=== PATIENT | female | born 1940 | race Caucasian/White ===

== ENCOUNTER 2017-05-23 11:46 | Inpatient (IN) | payer MEDICARE ==
[~2017-05-23] VITALS: Ht 157.5 cm; Wt 54.4 kg
--- NOTE | 2017-05-23 11:50 | NUR ---
BIB PRIVATE AMBULANCE FROM [facility] DT ABDOMINAL DISTENTION AND FEVER SINCE YESTERDAY. PATIENT IS AAO4. APPEARS IN NO APPARENT DISTRESS,. RESPIRATION EVEN AND UNLABORED. SKIN IS WARM TO TOUCH AND NON DIAPHORETIC. SATING WELL ON ROOM AIR
[2017-05-23] MEDS ORDERED: IV NS 0.9% 1,000 ML BAG IV ONE (12:00)
[2017-05-23 12:17] LABS: BASOPHILS # (AUTO) 0.3 /CMM (0.0-0.2); BASOPHILS % (AUTO) 1.3 % (0.0-2.0); HEMATOCRIT 38 % (33-45); HEMOGLOBIN 12.7 g/dL (11.5-14.8); LYMPHOCYTES # (AUTO) 0.9 /CMM (0.8-4.8); LYMPHOCYTES % (AUTO) 3.3 % (20.0-44.0); MEAN CORPUSCULAR HEMOGLOBIN 29 PG (26.0-33.0); MEAN CORPUSCULAR HGB CONC 34 g/dl (31.0-36.0); MEAN CORPUSCULAR VOLUME 85 fL (82-100); MONOCYTES % (AUTO) 7.5 % (2.0-12.0); NEUTROPHILS # (AUTO) 23.3 /CMM (1.8-8.9); NEUTROPHILS % (AUTO) 87.9 % (43.0-81.0); PLATELET COUNT (AUTO) 367 /CMM (150-450); RDW COEFFICIENT OF VARIATION 13.5 (11.5-15.0); RED BLOOD CELL COUNT(AUTO) 4.44 MIL/uL (4.0-5.2); WHITE BLOOD COUNT (AUTO) 26.5 K/uL (4.3-11.0)
[2017-05-23 12:19] LABS: APPEARANCE,URINE Slightly Cloudy (CLEAR); BILIRUBIN,URINE MODERATE (NEGATIVE); BLOOD, URINE Negative Ery/uL (NEGATIVE); COLOR,URINE Dark Yellow (YELLOW); KETONES,URINE Trace (NEGATIVE); LEUKOCYTE ESTERASE ,URINE Negative (NEGATIVE); NITRITE, URINE Negative (NEGATIVE); PROTEIN,URINE Trace mg/dl (NEGATIVE); UGLUCOSE Negative (NEGATIVE)
--- NOTE | 2017-05-23 12:20 | NUR ---
PATIENT WAS TAKEN TO CT
[2017-05-23 12:26] LABS: BACTERIA,URINE None seen /HPF (None Seen); SQUAMOUS EPITHELIAL CELL,UR Few /HPF (None Seen); URINE AMORPHOUS URATE Few /HPF (None Seen); WBC,URINE 0-3 /HPF (0-3)
[2017-05-23 12:27] LABS: CALCIUM, SERUM 9.5 mg/dL (8.5-10.1); CARBON DIOXIDE 25 mmol/L (21-32); CHLORIDE 107 mmol/L (98-107); CREATININE 1.9 mg/dL (0.6-1.3); GLUCOSE 170 mg/dL (74-106); POTASSIUM 4.1 mmol/L (3.5-5.1); SODIUM SERUM 143 mmol/L (136-145); UREA NITROGEN, BLOOD 55 mg/dL (7-18)
[2017-05-23 12:31] LABS: INR 0.98 (0.87-1.13); PROTHROMBIN TIME 10.2 SECS (9.5-12.7)
[2017-05-23 12:34] LABS: ALANINE AMINOTRANSFERASE 32 U/L (12-78); ALBUMIN 2.8 g/dL (3.4-5.0); ALKALINE PHOSPHATASE 80 U/L (46-116); ASPARTATE AMINOTRANSFERASE 19 U/L (15-37); BILIRUBIN,DIRECT 0.2 mg/dL (0.0-0.2); BILIRUBIN,TOTAL 0.6 mg/dL (0.2-1.0); TOTAL PROTEIN, SERUM 6.9 g/dL (6.4-8.2)
[2017-05-23 12:35] LABS: TROPONIN I < 0.017 ng/mL (0.00-0.056)
[2017-05-23] MEDS ORDERED: ATOR20TA PO (12:51)
[2017-05-23] MEDS ORDERED: DOCU-25 PO (12:51)
[2017-05-23] MEDS ORDERED: NA P133E RC (12:51)
[2017-05-23] MEDS ORDERED: ACET-868 PO (12:51)
[2017-05-23] MEDS ORDERED: FOLI0.8T PO (12:51)
[2017-05-23] MEDS ORDERED: RISP0.5T20 PO (12:51)
[2017-05-23] MEDS ORDERED: AMLO10TA2 PO (12:51)
[2017-05-23] MEDS ORDERED: BISA10SU8 RC (12:51)
[2017-05-23] MEDS ORDERED: MIRT15TA PO (12:51)
[2017-05-23] MEDS ORDERED: TEMA7.5C PO (12:51)
[2017-05-23] MEDS ORDERED: MAG30ORA PO (12:51)
[2017-05-23] MEDS ORDERED: MAGN400O6 PO (12:51)
[2017-05-23] MEDS ORDERED: IV NS 0.9% 500 ML IV ONE (13:00)
[2017-05-23] MEDS ORDERED: FLAGYL/NS RTU 500 MG/100 ML PIGGYBACK IV ONE (13:00)
[2017-05-23] MEDS ORDERED: LEVOFLOXACIN 750 MG /D5W 150ML 750 MG in PREMIX 1 EA IV SCH (13:00)
[2017-05-23] MEDS ORDERED: IV NS 0.9% 250 ML IV ONE (13:00)
[2017-05-23] MEDS ORDERED: LEVOFLOXACIN 750 MG /D5W 150ML 150 ML IV ONE (13:05)
[2017-05-23] MEDS ORDERED: METRONIDAZOLE 500MG/ NS 100ML 100 ML IV ONE (13:05)
--- NOTE | 2017-05-23 13:21 | NUR ---
CALLED DR RODRIGUEZ FOR PANEL
--- NOTE | 2017-05-23 13:44 | NUR ---
TELE 323-2
--- NOTE | 2017-05-23 14:02 | NUR ---
REPORT GIVEN TO MIR FRY FOR NAY
[2017-05-23 14:30] VITALS: BP 111/55
--- NOTE | 2017-05-23 15:00 | NUR ---
SOFTWARE REVERSE ENGINEER NOTE RECEIVED PT. PT IS STABLE AND IN BED. PT IS CONFUSED, BUT VERBAL. PT IS ATTEMPTING TO PULL OUT IV LINES AND CEJA CATH. NO S/S OF RESPIRATORY DISTRESS OR SOB. SLIGHT FEVER NOTED. SAFETY MEASURES IN PLACE, CALL LIGHT WITHIN REACH. WILL ENDORSE TO TARIFF COUNSEL FOR NAY.
[2017-05-23] MEDS ORDERED: IV NS 0.9% 1,000 ML IV PRN (15:28)
[2017-05-23] MEDS ORDERED: ZOLPIDEM TARTRATE 5 MG TABLET PO PRN (15:30)
[2017-05-23] MEDS ORDERED: MAGNESIUM HYDROXIDE 30 ML UDC PO PRN ×2 (15:30)
[2017-05-23] MEDS ORDERED: BISACODYL SUPP (10 MG) 10 MG/SUPP.RECT SUPP.RECT RC PRN (15:30)
[2017-05-23] MEDS ORDERED: NA PHOS,M-B/NA PHOS,DI-BA 1 EA ENEMA RC PRN (15:30)
[2017-05-23] MEDS ORDERED: Z GUARD REMEDY 2 OZ OINT TP PRN (15:30)
[2017-05-23] MEDS ORDERED: MAG HYDROX/AL HYDROX/SIMETH 30 ML UDC PO PRN ×2 (15:30)
[2017-05-23] MEDS ORDERED: ACETAMINOPHEN 325 MG TABLET PO PRN (15:30)
[2017-05-23] MEDS ORDERED: HYDROCODONE/APAP 5/325MG 1 EACH TABLET PO PRN (15:30)
[2017-05-23] MEDS ORDERED: ONDANSETRON HCL/PF 4 MG/2 ML VIAL IVP PRN (15:30)
[2017-05-23 16:00] VITALS: BP 130/90
[2017-05-23] MEDS: risperiDONE 0.25 MG TABLET PO SCH (16:00)
[2017-05-23 16:40] VITALS: BP 111/55
[2017-05-23] MEDS ORDERED: DOCUSATE SODIUM 100 MG CAPSULE PO SCH (17:00)
[2017-05-23] MEDS: METRONIDAZOLE 500MG/ NS 100ML 500 MG in PREMIX 1 EA IV SCH ×2 (17:50→23:45)
--- NOTE | 2017-05-23 18:52 | NUR ---
RN CLOSING NOTE PT IN BED RESTING. NO S/S OF DISTRESS OR SOB. PT DOES NOT APPEAR TO BE IN PAIN. SOFT WRIST RESTRAINT ORDER OBTAINED FOR PT REMOVING LINES. SAFETY MEASURES IN PLACE. CALL LIGHT WITHIN REACH. WILL ENDORSE TO MANAGER MEDICAL DEVICE FOR NAY.
[2017-05-23 20:00] VITALS: BP 135/56
--- NOTE | 2017-05-23 20:00 | NUR ---
RN NOTES PATIENT IS ALERT AND ORIENTED X1, RESTLESS, CONFUSED, SCREAMS WHEN TOUCH, PULLING OUT IV AND CEJA CATHETER. NO SOB, TOLERATING ROOM AIR, SPO2 93%, ABDOMEN SOFT AND NON-TENDER, ACTIVE BOWEL SOUNDS, LEFT HAND PERIPHERAL LINE IS PATENT AND INFUSING WELL. PROTECTED WITH LALA SLEEVE. PATIENT HAS BILATERAL SOFT WRIST RESTRAINTS FOR PULLING OUT IV. CEJA CATHETER IS DRAINING WELL WITH YELLOW URINE. GIVEN SPONGE BATH PATIENT IS UNKEMPT AND DISHEVELLED. NEEDS ATTENDED, CALL LIGHT WITHIN REACH.
--- NOTE | 2017-05-23 20:30 | NUR ---
RN NOTES PATIENT TRANSFERRED TO ROOM 326-1 NEAR THE NURSES STATION FOR SAFETY. BED ALARM TURNED ON.
[2017-05-23] MEDS: MIRTAZAPINE 15 MG TABLET PO SCH (21:53)
[2017-05-23] MEDS: TEMAZEPAM 7.5 MG CAPSULE PO PRN (23:45)
[2017-05-24] VITALS: BP 135/72
[2017-05-24] MEDS ORDERED: LORAZEPAM INJ 2 MG/ML VIAL ONE (02:11)
[2017-05-24] MEDS ORDERED: SIMETHICONE 80 MG TAB.CHEW ONE (02:12)
--- NOTE | 2017-05-24 02:16 | NUR ---
RN NOTES PATIENT IS SPITTING OUT MEDICATION, GIVEN TYLENOL 650 MG PO FOR TEMP OF 99F. PATIENT SPIT MEDICATION. COMBATIVE, VERBALLY ABUSIVE AND NOT COOPERATIVE WITH NURSING CARE. NOTIFIED DR. MANZO, NEW ORDER OF ATIVAN 0.5 MG IVP Q6HRS. ORDER NOTED AND CARRIED OUT.
[2017-05-24] MEDS: LORAZEPAM INJ 2 MG/ML VIAL IV PRN (02:23)
[2017-05-24 04:00] VITALS: BP 111/59
[2017-05-24] MEDS: METRONIDAZOLE 500MG/ NS 100ML 500 MG in PREMIX 1 EA IV SCH ×4 (05:10→23:19)
--- NOTE | 2017-05-24 06:50 | NUR ---
RN NOTES PATIENT IN BED, ALERT AND AWAKE, CONFUSED, RESTLESS, NO SOB, SPO2 AT ROOM AIR 96%, COMPLAINED OF PAIN OF 6/10 TO BUTTOCKS, GIVEN NORCO 5/325 1 TAB PO PRN. BILATERAL WRIST RESTRAINED ACTIVE DUE PATIENT PULLING OUT IV LINE AND CEJA CATHETER. LEFT HAND PERIPHERAL LINE IS PATENT AND INFUSING WELL, CEJA CATHETER DRAINING OF TEA COLORED URINE, HAD BM OF SOFT STOOL X3, SAMPLE COLLECTED FOR OB. SAFETY PRECAUTIONS IN PLACE, PATIENT BEING MONITORED CLOSELY SECONDARY TO FALL RISK AND BEHAVIOR. NEEDS ATTENDED, CALL LIGHT WITHIN REACH.
--- NOTE | 2017-05-24 07:10 | NUR ---
NURSE INTERN NOTES PATIENT CONFUSED, NO S/SX OF ACUTE DISTRESS AT THIS TIME, ON IVF FOR HYDRATION, IV PATENT AND FLUSHES WELL, BILATERAL SOFT WRIST RESTRAINTS IN PLACED, NO S/SX OF SKIN BREAKDOWN NOTED, CIRCULATION CHECKED, ALL NEEDS ATTENDED AND MET, CALL LIGHT WITHIN REACH, WILL CONTINUE TO MONITOR.
[2017-05-24 08:00] VITALS: BP 127/62
[2017-05-24 08:07] LABS: HEMATOCRIT 32 % (33-45); HEMOGLOBIN 10.6 g/dL (11.5-14.8); LYMPHOCYTES # (AUTO) 1.2 /CMM (0.8-4.8); LYMPHOCYTES % (AUTO) 6.4 % (20.0-44.0); MEAN CORPUSCULAR HEMOGLOBIN 29 PG (26.0-33.0); MEAN CORPUSCULAR HGB CONC 34 g/dl (31.0-36.0); MEAN CORPUSCULAR VOLUME 86 fL (82-100); MONOCYTES # (AUTO) 1.8 /CMM (0.1-1.30); MONOCYTES % (AUTO) 9.7 % (2.0-12.0); NEUTROPHILS # (AUTO) 15.9 /CMM (1.8-8.9); NEUTROPHILS % (AUTO) 83.9 % (43.0-81.0); PLATELET COUNT (AUTO) 265 /CMM (150-450); RDW COEFFICIENT OF VARIATION 14.9 (11.5-15.0); RED BLOOD CELL COUNT(AUTO) 3.68 MIL/uL (4.0-5.2); WHITE BLOOD COUNT (AUTO) 18.9 K/uL (4.3-11.0)
[2017-05-24 08:25] LABS: CALCIUM, SERUM 8.7 mg/dL (8.5-10.1); CARBON DIOXIDE 24 mmol/L (21-32); CHLORIDE 114 mmol/L (98-107); CREATININE 1.6 mg/dL (0.6-1.3); GLUCOSE 116 mg/dL (74-106); MAGNESIUM 2.8 mg/dL (1.8-2.4); PHOSPHORUS 3.5 mg/dL (2.5-4.9); POTASSIUM 3.2 mmol/L (3.5-5.1); SODIUM SERUM 148 mmol/L (136-145); UREA NITROGEN, BLOOD 53 mg/dL (7-18)
--- NOTE | 2017-05-24 08:49 | NUR ---
TEST KITCHEN HOME ECONOMIST NOTES SEEN BY DR. PERSON AND RECEIVED NEW ORDERS FOR NGT PLACEMENT, GOLYTELY TO START NOW, 2 FLEET ENEMAS NOW, MAG CITRATE IN THE AFTERNOON IF BOWEL IS NOT CLEAR, NPO AFTER MIDNIGHT AND CONSENT FOR COLONOSCOPY FOR TOMORROW. ORDER NOTED AND CARRIED OUT.
[2017-05-24 08:58] LABS: BAND % (MANUAL) 10 % (0.0-5.0); LYMPHOCYTES % (MANUAL) 6 % (16-48); MONOCYTES % (MANUAL) 8 % (0-11.0); NEUTROPHILS % (MANUAL) 76 (42-76)
[2017-05-24] MEDS ORDERED: NA PHOS,M-B/NA PHOS,DI-BA 1 EA ENEMA RC ONE (09:00)
[2017-05-24] MEDS ORDERED: PEG 3350/NA SULF,BICARB,CL/KCL 4,000 ML BOTTLE PO ONE (09:15)
--- NOTE | 2017-05-24 09:21 | NUR ---
DECONTAMINATION TECHNICIAN NOTES SPOKE WITH PATIENT'S DAUGHTER ROMAIN MARTINEZ AND GAVE CONSENT FOR COLONOSCOPY AND SEDATION FOR TOMORROW, HOWEVER, DAUGHTER REFUSED BLOOD TRANSFUSION, PER DAUGHTER IT WAS THE PATIENTS WISH.
[2017-05-24] MEDS: IV 1/2NS 1000 ML 1,000 ML IV SCH (10:46)
[2017-05-24] MEDS: ATORVASTATIN 10 MG TABLET PO SCH (10:48)
[2017-05-24] MEDS: FOLIC ACID 1 MG TABLET PO SCH (10:48)
[2017-05-24] MEDS: AMLODIPINE BESYLATE 10 MG TABLET PO SCH (10:49)
[2017-05-24] MEDS: risperiDONE 0.25 MG TABLET PO SCH (10:49)
[2017-05-24] MEDS: DOCUSATE SODIUM LIQ 100 MG/10 ML UDC NG SCH ×2 (11:30→18:08)
--- NOTE | 2017-05-24 12:00 | NUR ---
HERD TESTER NOTES NGT INSERTED PATIENT TOLERATED PROCEDURE WELL, PLACEMENT VERIFIED BY 2 NURSES, CXR DONE AND CONFIRMED PLACEMENT. ENEMA GIVEN AND PATIENT HAD LARGE BROWN BM.
[2017-05-24] MEDS ORDERED: POTASSIUM CHLORIDE 10 MEQ TABLET.SA PO ONE (12:30)
[2017-05-24] MEDS ORDERED: LEVOFLOXACIN 500 MG /D5W 100ML 500 MG in PREMIX 1 EA IV ONE (13:00)
--- NOTE | 2017-05-24 13:12 | NUR ---
RN MS NOTED DR. CARREON D/Neto TELE MONITOR. SHAY DUE THIS AM, CALLED PHARMACY TWICE, PER PHARMACY WILL SEND SOON.
[2017-05-24] MEDS ORDERED: POTASSIUM CHLORIDE 20 MEQ POWDER PACKET NG ONE (14:00)
[2017-05-24 16:00] VITALS: BP 138/63
[2017-05-24] MEDS ORDERED: MAGNESIUM CITRATE 296 ML BOTTLE PO ONE (16:00)
--- NOTE | 2017-05-24 16:27 | NUR ---
RN MS NOTES PATIENT WAS ABLE TO PULL OUT NGT WHEN RESTRAINT RELEASED FOR SKIN CHECK, STAMP MACHINE SERVICER AT BEDSIDE, ATTENDING TO ANOTHER PATIENT WHEN HE NOTICED NGT IS DISLODGED. NGT REINSERTED, DR. RODRIGUEZ AWARE, AND ORDERED STAT CHEST X-RAY FOR PLACEMENT VERIFICATION. ORDER NOTED AND CARRIED OUT.
--- NOTE | 2017-05-24 18:33 | NUR ---
RN MS NOTES PATIENT ALERT AND ORIENTED X1, CONFUSED AND COMBATIVE, ALL DUE MEDS GIVEN VIA NGT, PLACEMENT VERIFIED. NPO AT THIS TIME, HOB ELEVATED AT ALL TIMES, PATIENT HAD MULTIPLE BMS THIS SHIFT, LAST BM IS DARK BROWN AND LIQUID. PATIENT TOLERATING PREPARATION FOR COLONOSCOPY. ALL NEEDS ATTENDED AND MET, SKIN CARE PROVIDED, F/C PATENT AND DRAINING STEFANI COLORED URINE. RESTRAINT IN PLACED, WILL ENDORSE TO SAP INTEGRATION ARCHITECT FOR NAY.
[2017-05-24 20:00] VITALS: BP 132/83
--- NOTE | 2017-05-24 20:00 | NUR ---
RN NOTES PATIENT IN BED, CONFUSED, RESTLESS, NON-VERBAL, LETTING OUT SCREAMS SPORADICALLY, NO SOB, TOLERATING ROOM AIR, SPO2 95%. NG TUBE IN PLACE, CHECKED PLACEMENT BY AUSCULTATION. ABDOMEN DISTENDED, LEFT HAND PERIPHERAL IV IS PATENT AND INFUSING WELL, PROTECTED WITH LALA SLEEVES, PATIENT ON RESTRAINTS FOR SAFETY DUE TO PULLING OUT IV LINE, NGT AND CEJA CATHETER. SHOULD RECEIVED GOLYTELY TILL MIDNIGHT, NPO AFTER MIDNIGHT FOR COLONOSCOPY IN AM. WILL REQUIRE CONSTANT MONITORING FOR SAFETY. KEPT HOB ELEVATED, CALL LIGHT WITHIN REACH.
[2017-05-24] MEDS: MIRTAZAPINE 15 MG TABLET PO SCH (21:19)
[2017-05-24] MEDS: TEMAZEPAM 7.5 MG CAPSULE PO PRN (21:19)
--- NOTE | 2017-05-24 21:30 | NUR ---
RN NOTES PATIENT CURRENTLY ON GOLYTELY VIA NGT TILL MIDNIGHT, BM IS DARK AND LIQUID. PATIENT IS RESTLESS, PULLING OUT IV LINE, NGT AND CEJA CATHETER. BEING MONITORED CLOSELY FOR SAFETY.
[2017-05-25] MEDS: LORAZEPAM INJ 2 MG/ML VIAL IV PRN (01:14)
[2017-05-25] MEDS: METRONIDAZOLE 500MG/ NS 100ML 500 MG in PREMIX 1 EA IV SCH ×3 (05:10→17:25)
[2017-05-25] MEDS: IV 1/2NS 1000 ML 1,000 ML IV SCH (05:10)
--- NOTE | 2017-05-25 06:25 | NUR ---
RN NOTES NOTIFIED DR. CHAVEZ NOTIFIED, NEW ORDER OF SAMIRA ENSWATHI PER X1 NOW. ORDER NOTED AND CARRIED OUT. Addendum: 05/25/17 at 0656 by CORRY FERRIS RN NOTIFIED DR. CHAVEZ OF DARK, LIQUID STOOL
[2017-05-25] MEDS ORDERED: NA PHOS,M-B/NA PHOS,DI-BA 1 EA ENEMA RC ONE (06:30)
--- NOTE | 2017-05-25 06:54 | NUR ---
RN NOTES PATIENT IS RESTING, AROUSEABLE BY VOICE AND TOUCH, WITH EPISODES OF RESTLESSNESS, COMBATIVE AT TIMES, NO SOB, TOLERATING ROOM AIR, SPO2 95%, UNABLE TO VERBALIZE NEEDS, COMPLETED GOLYTELY AT MIDNIGHT, BEEN MOVING BOWEL X10, STOOL IS LIQUID AND DARK, GIVEN FLEET ENEMA, SOLID STOOL CAME OUT. PATIENT IS STILL ACTIVELY MOVING BOWELS. PROVIDED GOOD PERINEAL CARE AND BED BATH. RESTRAINTS IS STILL ACTIVE DUE TO PATIENT STILL CONFUSED AND PULLING OUT IV LINE AND CEJA CATHETER. ALL NEEDS ATTENDED, CALL LIGHT WITHIN REACH.
[2017-05-25 07:51] LABS: EOSINOPHILS % (AUTO) 0.2 % (0.0-6.0); HEMATOCRIT 32 % (33-45); HEMOGLOBIN 10.7 g/dL (11.5-14.8); LYMPHOCYTES # (AUTO) 1.1 /CMM (0.8-4.8); LYMPHOCYTES % (AUTO) 5.7 % (20.0-44.0); MEAN CORPUSCULAR HEMOGLOBIN 29 PG (26.0-33.0); MEAN CORPUSCULAR HGB CONC 33 g/dl (31.0-36.0); MEAN CORPUSCULAR VOLUME 86 fL (82-100); MONOCYTES % (AUTO) 5.2 % (2.0-12.0); NEUTROPHILS # (AUTO) 17.4 /CMM (1.8-8.9); NEUTROPHILS % (AUTO) 88.9 % (43.0-81.0); PLATELET COUNT (AUTO) 277 /CMM (150-450); RDW COEFFICIENT OF VARIATION 14.7 (11.5-15.0); RED BLOOD CELL COUNT(AUTO) 3.71 MIL/uL (4.0-5.2); WHITE BLOOD COUNT (AUTO) 19.6 K/uL (4.3-11.0)
[2017-05-25 08:00] VITALS: BP 152/78
--- NOTE | 2017-05-25 08:08 | NUR ---
RN opening notes: -patient sleeping soundly, with clear yeloow urine draining from payton catheter, with wrist restraints applied , sitter at bedisde, NGT in clamped this time, ready for OR for colonoscopy.
[2017-05-25 08:19] LABS: CALCIUM, SERUM 8.6 mg/dL (8.5-10.1); CARBON DIOXIDE 20 mmol/L (21-32); CHLORIDE 120 mmol/L (98-107); CREATININE 1.4 mg/dL (0.6-1.3); GLUCOSE 85 mg/dL (74-106); MAGNESIUM 2.8 mg/dL (1.8-2.4); PHOSPHORUS 3.3 mg/dL (2.5-4.9); POTASSIUM 3.1 mmol/L (3.5-5.1); SODIUM SERUM 155 mmol/L (136-145); UREA NITROGEN, BLOOD 39 mg/dL (7-18)
--- NOTE | 2017-05-25 08:25 | NUR ---
- patient was transported to OR , WITH WRIST RESTRAINTS, RPOETED TO OR OF A RECENT LIQUID BLACK STOOL, AWAKE BUT SLEEPING.
[2017-05-25] MEDS: ATORVASTATIN 10 MG TABLET PO SCH (09:00)
[2017-05-25] MEDS: DOCUSATE SODIUM LIQ 100 MG/10 ML UDC NG SCH ×2 (09:00→17:00)
[2017-05-25] MEDS: FOLIC ACID 1 MG TABLET PO SCH (09:00)
--- NOTE | 2017-05-25 09:50 | NUR ---
- back from OR VIA GURNEY, AWAKE, BUT EYES CLOSED WITH WRIST RESTRAINTS, REORT RECEIVED FROM DIRECTOR OF PRODUCT MARKETING THAT PATIENT HAS FULL OF STOOLS & TO REMOVE NGT AFTER MAG CITRATE.
[2017-05-25 10:44] LABS: BAND % (MANUAL) 7 % (0.0-5.0); LYMPHOCYTES % (MANUAL) 3 % (16-48); MONOCYTES % (MANUAL) 3 % (0-11.0); NEUTROPHILS % (MANUAL) 87 (42-76)
[2017-05-25] MEDS ORDERED: POTASSIUM CHLORIDE 20 MEQ TAB.PRT.SR PO SCH (11:00)
[2017-05-25] MEDS ORDERED: MAGNESIUM CITRATE 296 ML BOTTLE NG ONE (11:30)
[2017-05-25] MEDS: risperiDONE 0.25 MG TABLET PO SCH (11:42)
[2017-05-25] MEDS: AMLODIPINE BESYLATE 10 MG TABLET PO SCH (11:42)
[2017-05-25] MEDS: IV D5W 1,000 ML IV PRN (12:05)
[2017-05-25] MEDS: DOCUSATE SODIUM 100 MG CAPSULE PO SCH ×2 (13:00→17:24)
[2017-05-25] MEDS ORDERED: LEVOFLOXACIN 250 MG /D5W 50 ML 250 MG in PREMIX 1 EA IV SCH (13:00)
--- NOTE | 2017-05-25 13:09 | NUR ---
- NGT still in , Mag Citrate has BEEN GIVEN 1 HOUR AGO & still is being observed for stool reaction , & patient still being combative once restraints are released.
[2017-05-25] MEDS: Potassium Chloride 10 MEQ in IV D5W 50 ML IV SCH ×4 (13:42→16:59)
--- NOTE | 2017-05-25 14:00 | NUR ---
- NGT REMOVED, liquid stool came out, incontinent care done, wrist restraints removed , but patient was very restless, sitter had to control patient from getting out of bed. , KCL IV infusing via pump.
[2017-05-25 16:00] VITALS: BP 139/78
--- NOTE | 2017-05-25 18:00 | NUR ---
PATIENT WAS ABLE TO TOLERATE SMALL AMOUNTS OF WATER AFTER THE COLACE WITH APPLESAUCE. nO COUGHING NOTED.
--- NOTE | 2017-05-25 18:31 | NUR ---
- jello & cranberry juice were offered but patient spit out the jello, & refused the cranberry juice. Continuing IV ORDERED.
--- NOTE | 2017-05-25 18:33 | NUR ---
RN CLOSING NOTES: - PATIENT IS LYING ON BED IN SIDE-LYING POSITION , NON-LABORED RESPIRATION , WITH INFUSING FLAGYL & IV ORDERED. CALL LIGHT AT BEDSIDE, STILL ON 1:1 SITTER, SINCE PATIENT STILL SHOWS COMBATIVENESS , THO' NO WRIST RESTRAINTS APPLIED.
[2017-05-25 20:00] VITALS: BP 105/47
[2017-05-25] MEDS: MIRTAZAPINE 15 MG TABLET PO SCH (22:00)
[2017-05-25] MEDS ORDERED: POLYETHYLENE GLYCOL 3350 17 GM POWD.PACK PO SCH (22:00)
[2017-05-26] MEDS: METRONIDAZOLE 500MG/ NS 100ML 500 MG in PREMIX 1 EA IV SCH ×3 (00:22→12:44)
--- NOTE | 2017-05-26 06:40 | NUR ---
MS RN NOTES PT SLEEPING. EASILY AROUSABLE. NOT IN ANY DISTRESS. NO SOB NOTED. NO S/SX OF ANY PAIN OR DISCOMFORT AT THIS TIME. WITH IVF INFUSING WELL. AM CARE DONE. MONITORED ACCORDINGLY WITH SITTER AT BEDSIDE. CALL LIGHT WITHIN REACH. BED IN LOWEST POSITION. SR UP X 3 FOR SAFETY WITH BED ALARM ON. WILL ENDORSE TO NEXT SHIFT.
[2017-05-26 07:00] VITALS: BP 119/49
[2017-05-26 07:31] LABS: CALCIUM, SERUM 8.9 mg/dL (8.5-10.1); CARBON DIOXIDE 24 mmol/L (21-32); CHLORIDE 121 mmol/L (98-107); CREATININE 1.5 mg/dL (0.6-1.3); GLUCOSE 112 mg/dL (74-106); POTASSIUM 3.2 mmol/L (3.5-5.1); SODIUM SERUM 154 mmol/L (136-145); UREA NITROGEN, BLOOD 30 mg/dL (7-18)
--- NOTE | 2017-05-26 08:10 | NUR ---
RN NOTES RECEIVED PT. PT IS STABLE AND SLEEPING IN BED. NO S/S OF RESPIRATORY DISTRESS OR SOB. PT IS A/OX1 AND CONFUSED PER WELL LOGGING OPERATOR MUD ANALYSIS REPORT. FC IN PLACE AND PATENT. IV ACCESS LOCATED ON LEFT HAND 20G RUNNING D5W AT 75 ML/HR. SAFETY MEASURES IN PLACE, CALL LIGHT WITHIN REACH, WILL CONTINUE TO MONITOR.
[2017-05-26 09:00] VITALS: BP 119/49
[2017-05-26] MEDS: ATORVASTATIN 10 MG TABLET PO SCH (09:00)
[2017-05-26] MEDS: AMLODIPINE BESYLATE 10 MG TABLET PO SCH (09:00)
[2017-05-26] MEDS ORDERED: POTASSIUM CHLORIDE 20 MEQ POWDER PACKET PO SCH (09:30)
[2017-05-26] MEDS: FOLIC ACID 1 MG TABLET PO SCH (09:39)
[2017-05-26] MEDS: risperiDONE 0.25 MG TABLET PO SCH (09:39)
[2017-05-26] MEDS: DOCUSATE SODIUM 100 MG CAPSULE PO SCH ×2 (09:40→12:45)
[2017-05-26] MEDS ORDERED: METR500T PO (11:40)
[2017-05-26] MEDS: IV D5W 1,000 ML IV PRN (12:44)
[2017-05-26] MEDS ORDERED: Potassium Chloride 40 MEQ in IV D5W 1,000 ML IV PRN (13:40)
--- NOTE | 2017-05-26 15:43 | NUR ---
DISCHARGE NOTE PT DISCHARGED TO [facility]. PT'S VSS, NO S/S OF RESPIRATORY DISTRESS OR SOB. PT DID NOT APPEAR TO BE IN PAIN. BELONGINGS LIST AND DISCHARGE INSTRUCTIONS SIGNED AND COPIED. EXIT CARE PROVIDED TO AMBULATORY TRANSPORT. CONTACTED [facility] AND SPOKE WITH NURSE APARTMENT RENTAL CLERK, PT REPORT GIVEN. ALL DISCHARGE DOCUMENTATION COPIED AND PLACED IN CHART. IV ACCESS AND CEJA CATH REMOVED PRIOR TO DISCHARGE. PT WAS PICKED UP AND TAKEN TO [facility] BY AMBULANCE.
== END 2017-05-26 15:10 | DRG 871 ==
LOC: ER 11:49 → TELE 13:51 → MED 05-24 11:37
PROVIDERS: ADMIT Internal Medicine; ATTEND Internal Medicine
PROC: 0DBL8ZX Excision of Transverse Colon, Via Natural or Artificial Opening Endoscopic, Diagnostic (ICD-10-PCS; 2017-05-25)
PROC: 0DBM8ZX Excision of Descending Colon, Via Natural or Artificial Opening Endoscopic, Diagnostic (ICD-10-PCS; principal; 2017-05-25 09:07)
DX: A41.9 Sepsis, unspecified organism (principal); N17.0 Acute kidney failure with tubular necrosis; G92 Toxic encephalopathy; K55.9 Vascular disorder of intestine, unspecified; E87.0 Hyperosmolality and hypernatremia; E87.2 Acidosis; R18.8 Other ascites; G40.909 Epilepsy, unspecified, not intractable, without status epilepticus; F03.90 Unspecified dementia, unspecified severity, without behavioral disturbance, psychotic disturbance, mood disturbance, and anxiety; E78.5 Hyperlipidemia, unspecified; I12.9 Hypertensive chronic kidney disease with stage 1 through stage 4 chronic kidney disease, or unspecified chronic kidney disease; N18.9 Chronic kidney disease, unspecified; I25.10 Atherosclerotic heart disease of native coronary artery without angina pectoris; Z86.73 Personal history of transient ischemic attack (TIA), and cerebral infarction without residual deficits; K80.20 Calculus of gallbladder without cholecystitis without obstruction; F32.9 Major depressive disorder, single episode, unspecified; F41.9 Anxiety disorder, unspecified; Z86.61 Personal history of infections of the central nervous system; K56.41 Fecal impaction; R47.02 Dysphasia; Z88.0 Allergy status to penicillin; Z88.2 Allergy status to sulfonamides; K57.90 Diverticulosis of intestine, part unspecified, without perforation or abscess without bleeding; K64.8 Other hemorrhoids; F29 Unspecified psychosis not due to a substance or known physiological condition
CPT/HCPCS: 36415; 71010-TC; 74000-TC; 80048-TC; 80076-TC; 81000-TC; 82378; 83605-TC; 83735-TC; 84100-TC; 84484-TC; 85025-TC; 85730-TC; 87040-TC; 87081-TC; 87086-TC; 88305-TC; A4216; A4606; J1956; J2060; J2370; J3480; J3490; J7030; J7050; J7060; J7070; Z7610

== ENCOUNTER 2018-04-10 12:17 | Inpatient (IN) | payer MEDICARE, OTHER ==
[~2018-04-10] VITALS: Ht 177.8 cm; Wt 43.1 kg
[~2018-04-10 12:17] MED LIST: ACET-868 PO; AMLO10TA6 PO; ATOR20TA PO; BISA10SU8 RC; DOCU-141 PO; FOLI0.8T PO; MAG30ORA PO; MAGN400O6 PO; METR500T PO; MIRT15TA PO; NA P133E RC; RISP0.5T20 PO; TEMA7.5C PO
[2018-04-10 12:48] LABS: BASOPHILS # (AUTO) 0.1 /CMM (0.0-0.2); BASOPHILS % (AUTO) 0.6 % (0.0-2.0); EOSINOPHILS % (AUTO) 0.9 % (0.0-6.0); HEMATOCRIT 38 % (33-45); HEMOGLOBIN 12.7 g/dL (11.5-14.8); LYMPHOCYTES # (AUTO) 2.3 /CMM (0.8-4.8); LYMPHOCYTES % (AUTO) 27.8 % (20.0-44.0); MEAN CORPUSCULAR HGB CONC 33 g/dl (31.0-36.0); MEAN CORPUSCULAR VOLUME 91 fL (82-100); MONOCYTES # (AUTO) 0.7 /CMM (0.1-1.30); MONOCYTES % (AUTO) 8.3 % (2.0-12.0); NEUTROPHILS # (AUTO) 5.2 /CMM (1.8-8.9); NEUTROPHILS % (AUTO) 62.4 % (43.0-81.0); PLATELET COUNT (AUTO) 176 /CMM (150-450); RDW COEFFICIENT OF VARIATION 12.8 (11.5-15.0); RED BLOOD CELL COUNT(AUTO) 4.19 MIL/uL (4.0-5.2); WHITE BLOOD COUNT (AUTO) 8.4 K/uL (4.3-11.0)
[2018-04-10] MEDS ORDERED: IV NS 0.9% 500 ML BAG IV ONE (13:00)
[2018-04-10 13:01] LABS: CALCIUM, SERUM 9.4 mg/dL (8.5-10.1); CARBON DIOXIDE 31 mmol/L (21-32); CHLORIDE 109 mmol/L (98-107); CREATININE 1.3 mg/dL (0.6-1.3); GLUCOSE 96 mg/dL (74-106); POTASSIUM 4.1 mmol/L (3.5-5.1); SODIUM SERUM 143 mmol/L (136-145); UREA NITROGEN, BLOOD 36 mg/dL (7-18)
[2018-04-10 13:05] LABS: APPEARANCE,URINE Clear (CLEAR); BILIRUBIN,URINE Negative (NEGATIVE); BLOOD, URINE Trace-intact Ery/uL (NEGATIVE); COLOR,URINE Yellow (YELLOW); KETONES,URINE Trace (NEGATIVE); LEUKOCYTE ESTERASE ,URINE Large (NEGATIVE); NITRITE, URINE Positive (NEGATIVE); PROTEIN,URINE Trace mg/dl (NEGATIVE); UGLUCOSE Negative (NEGATIVE); UROBILINOGEN,URINE 0.2 EU/dL (0.2)
[2018-04-10 13:07] LABS: ALANINE AMINOTRANSFERASE 20 U/L (12-78); ALBUMIN 2.7 g/dL (3.4-5.0); ALKALINE PHOSPHATASE 103 U/L (46-116); ASPARTATE AMINOTRANSFERASE 19 U/L (15-37); BILIRUBIN,DIRECT 0.1 mg/dL (0.0-0.2); BILIRUBIN,TOTAL 0.2 mg/dL (0.2-1.0); TOTAL PROTEIN, SERUM 6.8 g/dL (6.4-8.2)
[2018-04-10 13:09] LABS: BACTERIA,URINE Many /HPF (None Seen); SQUAMOUS EPITHELIAL CELL,UR Few /HPF (None Seen); WBC,URINE 51-80 /HPF (0-3)
--- NOTE | 2018-04-10 13:14 | NUR ---
CALLED NURSING RING SPINNER REQUESTING A TELEMETRY BED.
--- NOTE | 2018-04-10 13:14 | NUR ---
CALLED [employer] TRANSCRIBING MACHINE MECHANIC WAS PAGED.
--- NOTE | 2018-04-10 13:16 | NUR ---
LINE STARTED ON R WRIST G 20, BLOOD DRAWN FROM LINE AND SENT TO LAB
[2018-04-10] MEDS ORDERED: FOLI1TAB16 PO (13:38)
[2018-04-10] MEDS ORDERED: CALC-1026 PO (13:38)
[2018-04-10] MEDS ORDERED: CHOL100062 PO (13:38)
[2018-04-10] MEDS ORDERED: POLY17PO4 PO (13:38)
[2018-04-10] MEDS ORDERED: DIVA125C2 PO (13:38)
[2018-04-10] MEDS ORDERED: CLOP75TA15 PO (13:38)
--- NOTE | 2018-04-10 13:52 | NUR ---
REPORT GIVEN TO JARROD FRANCOIS RN FOR CONTINUITY OF CARE
[2018-04-10] MEDS ORDERED: HALOPERIDOL LACTATE INJ 5 MG/ML VIAL IM ONE (14:00)
[2018-04-10] MEDS ORDERED: HALOPERIDOL LACTATE INJ 5 MG/ML VIAL ONE (14:03)
[2018-04-10] MEDS ORDERED: ACETAMINOPHEN 325 MG TABLET PO PRN (16:30)
[2018-04-10] MEDS ORDERED: NA PHOS,M-B/NA PHOS,DI-BA 1 EA ENEMA RC PRN (16:30)
[2018-04-10] MEDS ORDERED: MAG HYDROX/AL HYDROX/SIMETH 30 ML UDC PO PRN (16:30)
[2018-04-10] MEDS ORDERED: ONDANSETRON HCL/PF 4 MG/2 ML VIAL IVP PRN (16:30)
[2018-04-10] MEDS ORDERED: HYDROCODONE/APAP 5/325MG 1 EACH TABLET PO PRN (16:30)
[2018-04-10] MEDS ORDERED: BISACODYL SUPP (10 MG) 10 MG/SUPP.RECT SUPP.RECT RC PRN (16:30)
[2018-04-10] MEDS ORDERED: Z GUARD REMEDY 2 OZ OINT TP PRN (16:30)
[2018-04-10] MEDS ORDERED: MAGNESIUM HYDROXIDE 30 ML UDC PO PRN (16:30)
[2018-04-10] MEDS: IV NS 0.9% 1,000 ML IV PRN (17:25)
[2018-04-10] MEDS: LEVOFLOXACIN 750 MG /D5W 150ML 750 MG in PREMIX 1 EA IV SCH (17:34)
[2018-04-10 17:47] LABS: TROPONIN I < 0.017 ng/mL (0.00-0.056)
[2018-04-10] MEDS: CALCIUM CARBONATE (1250) 500 MG TABLET PO SCH (17:56)
[2018-04-10] MEDS: DOCUSATE SODIUM 100 MG CAPSULE PO SCH (17:56)
[2018-04-10] MEDS: risperiDONE 0.25 MG TABLET PO SCH (17:56)
--- NOTE | 2018-04-10 18:00 | NUR ---
PT. BROUGHT UP BY STRETCHER TO RM. 310-2 THEN TRANSFERRED TO RM. 306-2 WITH SITTER.PT. WAS TRYING TO GET OOB.ALERT AND ORIENTED X1.COOPERATIVE,BUT CONFUSED.HEP LOCK IN PLACE. PUT ON TELE INITIALLY,SR RATE OF 72 THEN DC'D.C. MANDUJANO HERE AND ORDERS GIVEN.LEVEQUIN STARTED.SKIN TEAR CLEANED LT. WRIST THEN MEPILEX APPLIED.
--- NOTE | 2018-04-10 19:48 | NUR ---
MS RN OPENING NOTES PT RECIEVED IN BED AT LOWEST AND LOCKED POSITION WITH SIDE RAILS UP X2, NO S/S OF PAIN OR DISTRESS NOTED, BREATHING IS EVEN AND UNLABORED ON RA, A/O X1 CONFUSED, IV IS PATENT AND INTACT, SITTER PRESENT AT BEDSIDE, SAFETY PRECAUTIONS IN PLACE, WILL CONTINUE TO MONITOR ACCORDINGLY
[2018-04-10 20:00] VITALS: BP 130/64
[2018-04-10] MEDS: POLYETHYLENE GLYCOL 3350 17 GM POWD.PACK PO SCH (21:07)
[2018-04-10] MEDS ORDERED: DIVALPROEX SODIUM 125 MG TABLET.DR PO ONE (21:18)
[2018-04-10] MEDS: DIVALPROEX SODIUM 125 MG CAP.SPRINK PO SCH (21:25)
--- NOTE | 2018-04-10 21:40 | NUR ---
MED ISSUE ACCIDENTALLY REMOVED WRONG DRUG DEPAKOTE TAB WHEN IT SHOULD HAVE BEEN SPRINKLE, THE 5 TABLETS WERE RETURNED AND NOTED IN THE OMNICELL, CORRECT MED WAS REMOVED AND WAS GIVEN DEPAKOTE SPRINKLE
[2018-04-11 06:20] LABS: CALCIUM, SERUM 9.3 mg/dL (8.5-10.1); CARBON DIOXIDE 27 mmol/L (21-32); CHLORIDE 112 mmol/L (98-107); CREATININE 1.2 mg/dL (0.6-1.3); GLUCOSE 81 mg/dL (74-106); PHOSPHORUS 2.5 mg/dL (2.5-4.9); POTASSIUM 4.2 mmol/L (3.5-5.1); SODIUM SERUM 145 mmol/L (136-145); UREA NITROGEN, BLOOD 25 mg/dL (7-18)
[2018-04-11 06:23] LABS: CHOLESTEROL 157 mg/dL (<200); HDL CHOLESTEROL 50 mg/dL (40-60); LDL 98 mg/dL (0-99); THYROID STIMULATING HORMONE 3.426 uIU/mL (0.358-3.74); TRIGLYCERIDES 85 mg/dL (30-150)
--- NOTE | 2018-04-11 06:31 | NUR ---
MS RN CLOSING NOTES PT ASLEEP IN BED AT LOWEST AND LOCKED POSITION WITH SIDE RAILS UP X2, NO S/S OF PAIN OR DISTRESS NOTED, BREATHING IS EVEN AND UNLABORED ON RA, A/O X1 CONFUSED, IV IS PATENT AND INTACT, SITTER PRESENT AT BEDSIDE, SAFETY PRECAUTIONS IN PLACE, ALL NEEDS ATTENDED TO, WILL ENDORSE TO DAY SHIFT FOR NAY
[2018-04-11 06:37] LABS: BASOPHILS % (AUTO) 0.3 % (0.0-2.0); EOSINOPHILS % (AUTO) 1.4 % (0.0-6.0); HEMATOCRIT 34 % (33-45); HEMOGLOBIN 11.1 g/dL (11.5-14.8); LYMPHOCYTES # (AUTO) 2.4 /CMM (0.8-4.8); LYMPHOCYTES % (AUTO) 35.5 % (20.0-44.0); MEAN CORPUSCULAR HGB CONC 33 g/dl (31.0-36.0); MEAN CORPUSCULAR VOLUME 94 fL (82-100); MONOCYTES # (AUTO) 0.6 /CMM (0.1-1.30); NEUTROPHILS # (AUTO) 3.7 /CMM (1.8-8.9); NEUTROPHILS % (AUTO) 53.8 % (43.0-81.0); PLATELET COUNT (AUTO) 148 /CMM (150-450); RDW COEFFICIENT OF VARIATION 13.4 (11.5-15.0); RED BLOOD CELL COUNT(AUTO) 3.59 MIL/uL (4.0-5.2); WHITE BLOOD COUNT (AUTO) 6.8 K/uL (4.3-11.0)
--- NOTE | 2018-04-11 07:10 | NUR ---
MS OPENING NOTE RECEIVED PT IN BED, SLEEPING AND EASILY AROUSABLE. PT IS ALERT AND ORIENTED X1, ABLE TO MAKE BASIC NEEDS KNOWN. BREATHING IS EVEN AND UNLABORED ON 3L NC, NO SIGNS OF ACUTE DISTRESS NOTED. R WRIST #20G IV IS INFUSING NS @ 60ML/HR WITHOUT REDNESS OR SWELLING. SAFETY AND ASPIRATION PRECAUTIONS MAINTAINED. SITTER IS AT THE BEDSIDE. BED IS LOCKED AND IN LOWEST POSITION, SIDE RAILS UP X2, CALL LIGHT IS WITHIN REACH.
[2018-04-11 08:00] VITALS: BP 133/75
--- NOTE | 2018-04-11 09:30 | NUR ---
MS RN NOTE PER BOBBY MANDUJANO NP, OKAY TO GIVE BLOOD THINNERS WITH PLATELET LEVEL OF 148.
[2018-04-11] MEDS: risperiDONE 0.25 MG TABLET PO SCH ×2 (09:35→17:08)
[2018-04-11] MEDS: CHOLECALCIFEROL 1,000 UNIT TABLET (VIT D3) PO SCH (09:35)
[2018-04-11] MEDS: CLOPIDOGREL BISULFATE 75 MG TABLET PO SCH (09:35)
[2018-04-11] MEDS: DOCUSATE SODIUM 100 MG CAPSULE PO SCH ×2 (09:35→17:08)
[2018-04-11] MEDS: FOLIC ACID 1 MG TABLET PO SCH (09:35)
[2018-04-11] MEDS: DIVALPROEX SODIUM 125 MG CAP.SPRINK PO SCH ×2 (09:35→21:43)
[2018-04-11] MEDS: CALCIUM CARBONATE (1250) 500 MG TABLET PO SCH ×2 (09:36→17:08)
[2018-04-11] MEDS: AMLODIPINE BESYLATE 10 MG TABLET PO SCH (09:37)
[2018-04-11] MEDS: IV NS 0.9% 1,000 ML IV PRN (11:14)
[2018-04-11] MEDS: ENOXAPARIN SODIUM 30 MG/0.3 ML DISP.SYRIN SQ SCH (11:36)
--- NOTE | 2018-04-11 15:00 | NUR ---
MS RN NEW IV INSERTED R WRIST IV WAS FOUND TO BE LEAKING AND CAUSING PAIN WHEN FLUSHED. REMOVED AND INSERTED NEW PERIPHERAL IV AT THE R FA, #22G. IV IS PATENT, CLEAN, DRY AND INTACT.
[2018-04-11 16:00] VITALS: BP_SYST 125; BP_SYST 133; BP_DIAS 67; BP_DIAS 75
[2018-04-11] MEDS: LEVOFLOXACIN 750 MG /D5W 150ML 750 MG in PREMIX 1 EA IV SCH (17:08)
--- NOTE | 2018-04-11 19:20 | NUR ---
MS RN CLOSING NOTE REPORT GIVEN TO NATURAL SCIENCES PROFESSOR RN FOR CONTINUITY OF CARE. PT IN BED, SLEEPING AND EASILY AROUSABLE, ALERT AND ORIENTED X1. BREATHING IS EVEN AND UNLABORED ON ROOM AIR, NO SIGNS OF ACUTE DISTRESS NOTED AT THIS TIME, R FA #22G IV IS INFUSING NS @ 60ML/HR WITHOUT REDNESS OR SWELLING. ADLS PROVIDED, ASSISTED PT TO TURN AND REPOSITION Q2H DURING THE SHIFT. SITTER IS AT THE BEDSIDE. BED IS LOCKED AND IN LOWEST POSITION, SIDE RAILS UPX2, CALL LIGHT IS WITHIN REACH.
--- NOTE | 2018-04-11 19:30 | NUR ---
RN MS OPENING NOTES RECEIVED PATIENT IN BED AWAKE. ALERT AND ORIENTED X1, CONFUSED. VERBALLY RESPONSIVE. STABLE CONDITION. BREATHING EVEN AND UNLABORED. NO SOB NOTED - TOLERATING ROOM-AIR. NO COMPLAINTS OF PAIN OR DISCOMFORT. NO FACIAL GRIMACING. IV LINE INTACT AND PATENT - INFUSING NS AT 60ML/HR. SKIN DRY AND WARM TO TOUCH. AFEBRILE. ALL OTHER NEEDS ATTENDED TO. SITTER AT BEDSIDE. SAFETY MEASURES IN PLACE. CALL LIGHT WITHIN REACH. WILL CONTINUE TO MONITOR.
[2018-04-11 20:00] VITALS: BP 145/79
[2018-04-11] MEDS: POLYETHYLENE GLYCOL 3350 17 GM POWD.PACK PO SCH (21:44)
--- NOTE | 2018-04-12 06:49 | NUR ---
RN MS CLOSING NOTES PATIENT IN BED ASLEEP. EASILY AROUSABLE. IN STABLE CONDITION. NO ACUTE CHANGES THROUGHOUT SHIFT. BREATHING EVEN AND UNLABORED. NO SOB. TOLERATING ROOM AIR. NO COMPLAINTS OF PAIN OT DISCOMFORT. NO FACIAL GRIMACING. IV INTACT AND PATENT. INFUSING WELL. ALL OTHER NEEDS ATTENDED TO. KEPT CLEAN DRY AND COMFORTABLE. SAFETY MEASURES IN PLACE. CALL LIGHT WITHIN REACH. WILL ENDORSE TO ONCOMING NURSE FOR CONTINUITY OF CARE.
[2018-04-12 06:52] LABS: BASOPHILS % (AUTO) 0.2 % (0.0-2.0); EOSINOPHILS % (AUTO) 0.7 % (0.0-6.0); HEMATOCRIT 34 % (33-45); HEMOGLOBIN 11.2 g/dL (11.5-14.8); LYMPHOCYTES # (AUTO) 1.9 /CMM (0.8-4.8); LYMPHOCYTES % (AUTO) 25.7 % (20.0-44.0); MEAN CORPUSCULAR HGB CONC 33 g/dl (31.0-36.0); MEAN CORPUSCULAR VOLUME 93 fL (82-100); MONOCYTES # (AUTO) 0.6 /CMM (0.1-1.30); MONOCYTES % (AUTO) 8.5 % (2.0-12.0); NEUTROPHILS # (AUTO) 4.8 /CMM (1.8-8.9); NEUTROPHILS % (AUTO) 64.9 % (43.0-81.0); PLATELET COUNT (AUTO) 152 /CMM (150-450); RDW COEFFICIENT OF VARIATION 13.4 (11.5-15.0); RED BLOOD CELL COUNT(AUTO) 3.63 MIL/uL (4.0-5.2); WHITE BLOOD COUNT (AUTO) 7.4 K/uL (4.3-11.0)
[2018-04-12 07:03] LABS: CALCIUM, SERUM 9.5 mg/dL (8.5-10.1); CARBON DIOXIDE 26 mmol/L (21-32); CHLORIDE 112 mmol/L (98-107); CREATININE 1.3 mg/dL (0.6-1.3); GLUCOSE 92 mg/dL (74-106); SODIUM SERUM 144 mmol/L (136-145); UREA NITROGEN, BLOOD 23 mg/dL (7-18)
--- NOTE | 2018-04-12 07:52 | NUR ---
MS RN OPENING NOTES RECEIVED PT LAYING IN BED, RESTING COMFORTABLY. SITTER AT BEDSIDE. PT IS A/OX1, AFEBRILE. RESPIRATIONS ARE EVEN AND UNLABORED, NOT IN ANY ACUTE DISTRESS NOTED. DENIES ANY PAIN, SOB, N/V AT THIS TIME. IV SITE TO RFA INTACT, NO INFILTRATION NOTED. DRESSING KEPT CLEAN AND DRY. IV FLUIDS RUNNING @ 60ML/HR, TOLERATING WELL. SAFETY MEASURES ARE IN PLACE. WILL CONTINUE TO MONITOR THROUGHOUT SHIFT FOR CONTINUITY OF CARE.
[2018-04-12] MEDS: AMLODIPINE BESYLATE 10 MG TABLET PO SCH (08:49)
[2018-04-12] MEDS: risperiDONE 0.25 MG TABLET PO SCH ×2 (08:49→16:20)
[2018-04-12] MEDS: CALCIUM CARBONATE (1250) 500 MG TABLET PO SCH ×2 (08:49→16:20)
[2018-04-12] MEDS: CHOLECALCIFEROL 1,000 UNIT TABLET (VIT D3) PO SCH (08:49)
[2018-04-12] MEDS: DOCUSATE SODIUM 100 MG CAPSULE PO SCH ×2 (08:50→16:20)
[2018-04-12] MEDS: CLOPIDOGREL BISULFATE 75 MG TABLET PO SCH (08:50)
[2018-04-12] MEDS: FOLIC ACID 1 MG TABLET PO SCH (08:50)
[2018-04-12] MEDS: DIVALPROEX SODIUM 125 MG CAP.SPRINK PO SCH ×2 (08:50→21:25)
[2018-04-12] MEDS: ENOXAPARIN SODIUM 30 MG/0.3 ML DISP.SYRIN SQ SCH (08:54)
[2018-04-12] MEDS: IV NS 0.9% 1,000 ML IV PRN (10:37)
[2018-04-12] MEDS: MEROPENEM 500 MG in IV NS 0.9% 50 ML IV SCH ×2 (10:52→21:26)
--- NOTE | 2018-04-12 18:15 | NUR ---
MS RN CLOSING NOTES ALL DUE MEDS GIVEN, CARE RENDERED. SITTER AT BEDSIDE. PT CONSISTENTLY TRIES TO CLIMB OUT OF BED. PT IS A/O X1, CONFUSED. AFEBRILE. RESPIRATIONS ARE EVEN AND UNLABORED, NOT IN ANY ACUTE DISTRESS NOTED. NO FACIAL GRIMACING OR MOANING. IV SITE INTACT, NO INFILTRATION NOTED. DRESSING KEPT CLEAN AND DRY. SAFETY MEASURES ARE IN PLACE. WILL ENDORSE TO NEXT SHIFT FOR CONTINUITY OF CARE.
--- NOTE | 2018-04-12 19:30 | NUR ---
RN NOTE; PT IN BED AWAKE AND CONFUSED WITH SITTER AT THE BED SIDE, BREATHING EVENLY. NO SOB. NAD .SKIN WARM AND DRY. GOOD ISOLATION PRECAUTION AND PROPER HAND WASHING OBSERVED . NEEDS ATTENDED , BED LOW LOCKED. CALL LIGHT WITHIN REACH. WILL CONT TO MONITOR,
[2018-04-12 20:00] VITALS: BP 122/74
[2018-04-12] MEDS: POLYETHYLENE GLYCOL 3350 17 GM POWD.PACK PO SCH (21:25)
[2018-04-12 22:22] VITALS: BP 122/74
[2018-04-13] MEDS: IV NS 0.9% 1,000 ML IV PRN (04:44)
[2018-04-13 06:38] LABS: BASOPHILS % (AUTO) 0.3 % (0.0-2.0); EOSINOPHILS % (AUTO) 0.6 % (0.0-6.0); HEMATOCRIT 36 % (33-45); LYMPHOCYTES # (AUTO) 1.7 /CMM (0.8-4.8); LYMPHOCYTES % (AUTO) 21.2 % (20.0-44.0); MEAN CORPUSCULAR HGB CONC 33 g/dl (31.0-36.0); MEAN CORPUSCULAR VOLUME 94 fL (82-100); MONOCYTES # (AUTO) 0.8 /CMM (0.1-1.30); MONOCYTES % (AUTO) 10.5 % (2.0-12.0); NEUTROPHILS # (AUTO) 5.3 /CMM (1.8-8.9); NEUTROPHILS % (AUTO) 67.4 % (43.0-81.0); PLATELET COUNT (AUTO) 166 /CMM (150-450); RDW COEFFICIENT OF VARIATION 13.6 (11.5-15.0); RED BLOOD CELL COUNT(AUTO) 3.87 MIL/uL (4.0-5.2); WHITE BLOOD COUNT (AUTO) 7.9 K/uL (4.3-11.0)
[2018-04-13 06:40] LABS: PREALBUMIN 17.5 MG/DL (18.0-35.7)
--- NOTE | 2018-04-13 06:41 | NUR ---
RN NOTE; PT IN BED SLEEPING. AROUSES EASILY. SITTER AT THE BED SIDE. BREATHING EVENLY. NO SOB. NAD . SKIN WARM AND DRY. REMAINED CLAM AND COMPLIANT DURING THE NIGHT. ASSISTED WITH ADLS, CLEANED AND DRIED, BED LOW LOCKED,CALL LIGHT WITHIN REACH, WILL CONT TO MONITOR AND WILL ENDORSE TO AM SHIFT FOR NAY.
[2018-04-13 06:59] LABS: ALBUMIN 2.4 g/dL (3.4-5.0); CALCIUM, SERUM 9.6 mg/dL (8.5-10.1); CARBON DIOXIDE 26 mmol/L (21-32); CHLORIDE 110 mmol/L (98-107); CREATININE 1.2 mg/dL (0.6-1.3); GLUCOSE 86 mg/dL (74-106); POTASSIUM 3.8 mmol/L (3.5-5.1); SODIUM SERUM 142 mmol/L (136-145); UREA NITROGEN, BLOOD 28 mg/dL (7-18)
--- NOTE | 2018-04-13 07:30 | NUR ---
RN OPENING NOTES RECEIVED PT. IN BED A&OX1. BREATHING UNLABORED ON ROOM AIR. 1:1 SITTER IS AT BEDSIDE. NO S/S OF ACUTE DISTRESS. IV FLUIDS RUNNING AT 60 ML/HR. BED IS IN LOWEST, AND LOCKED POSITION. 2 SIDE RAILS UP, AND CALL LIGHT WITHIN REACH. ALL NEEDS MET. WILL CONTINUE TO ASSESS AND MONITOR.
[2018-04-13 08:00] VITALS: BP 148/85
[2018-04-13] MEDS: DOCUSATE SODIUM 100 MG CAPSULE PO SCH (09:00)
[2018-04-13 09:56] VITALS: BP 153/86
[2018-04-13] MEDS: FOLIC ACID 1 MG TABLET PO SCH (09:56)
[2018-04-13] MEDS: risperiDONE 0.25 MG TABLET PO SCH (09:56)
[2018-04-13] MEDS: CLOPIDOGREL BISULFATE 75 MG TABLET PO SCH (09:56)
[2018-04-13] MEDS: CHOLECALCIFEROL 1,000 UNIT TABLET (VIT D3) PO SCH (09:56)
[2018-04-13] MEDS: CALCIUM CARBONATE (1250) 500 MG TABLET PO SCH (09:56)
[2018-04-13] MEDS: AMLODIPINE BESYLATE 10 MG TABLET PO SCH (09:56)
[2018-04-13] MEDS: ENOXAPARIN SODIUM 30 MG/0.3 ML DISP.SYRIN SQ SCH (09:57)
[2018-04-13] MEDS: MEROPENEM 500 MG in IV NS 0.9% 50 ML IV SCH (10:04)
[2018-04-13] MEDS: DIVALPROEX SODIUM 125 MG CAP.SPRINK PO SCH (10:05)
[2018-04-13] MEDS ORDERED: MERO1VIA3 IV (10:58)
--- NOTE | 2018-04-13 14:59 | NUR ---
DISCHARGE WAS REPORT WAS GIVEN TO IVONNE FROM [facility] VIA PHONE. DISCHARGE INSTRUCTIONS WAS PROVIDED. PT. WILL RECEIVE FLU VACCINE FOR THIS SEASON AT [facility]. ALL QUESTIONS ANSWERED, AND CALL BACK NUMBER WAS PROVIDED FOR ANY QUESTIONS.
[2018-04-13] MEDS ORDERED: DIVA125C2 PO (15:16)
--- NOTE | 2018-04-13 15:29 | NUR ---
UPDATED DISCHARGE INSTRUCTIONS VIA PHONE TO ARLENE. HEATH'S MEDICATION DEPAKOT DOSAGE WAS INCREASED AND REPEAT TROUGH LEVELS FOR VALPROIC ACID NEED TO BE REPEATED IN 3-4 DAYS.
[2018-04-13] MEDS ORDERED: DIVALPROEX SODIUM 125 MG CAP.SPRINK PO SCH (21:00)
[2018-04-13] MEDS ORDERED: DIVALPROEX SODIUM 500 MG TABLET.DR PO SCH (21:00)
== END 2018-04-13 16:00 | DRG 689 ==
LOC: ER 12:22 → TELE 14:00 → MED 15:55
PROVIDERS: ADMIT Nurse Practitioner Acute Care; ATTEND Nurse Practitioner Acute Care
DX: N39.0 Urinary tract infection, site not specified (principal); N17.0 Acute kidney failure with tubular necrosis; E43 Unspecified severe protein-calorie malnutrition; G93.40 Encephalopathy, unspecified; Z68.1 Body mass index [BMI] 19.9 or less, adult; I25.10 Atherosclerotic heart disease of native coronary artery without angina pectoris; F03.90 Unspecified dementia, unspecified severity, without behavioral disturbance, psychotic disturbance, mood disturbance, and anxiety; B96.20 Unspecified Escherichia coli [E. coli] as the cause of diseases classified elsewhere; D63.8 Anemia in other chronic diseases classified elsewhere; D69.6 Thrombocytopenia, unspecified; E78.5 Hyperlipidemia, unspecified; Z86.73 Personal history of transient ischemic attack (TIA), and cerebral infarction without residual deficits; Z86.61 Personal history of infections of the central nervous system; N18.9 Chronic kidney disease, unspecified; G40.909 Epilepsy, unspecified, not intractable, without status epilepticus
CPT/HCPCS: 36415; 80048-TC; 80061-TC; 80076-TC; 80164-TC; 81000-TC; 82040-TC; 83605-TC; 83735-TC; 84100-TC; 84134-TC; 84443-TC; 84484-TC; 85025-TC; 87040-TC; 87081-TC; 87086-TC; 87186-TC; A4216; A4606; A6403; J1630; J1650; J1956; J2185; J7030; Z7610

== ENCOUNTER 2018-11-16 18:00 | Inpatient (IN) | payer MEDICARE, OTHER ==
[~2018-11-16] VITALS: Ht 152.4 cm; Wt 39.5 kg
[~2018-11-16 18:00] MED LIST changes: -AMLO10TA6 PO; +AMLO10TA7 PO; -ATOR20TA PO; +CALC-1026 PO; +CHOL100062 PO; +CLOP75TA15 PO; +DIVA125C2 PO; -FOLI0.8T PO; +FOLI1TAB16 PO; -MAG30ORA PO; +MERO1VIA3 IV; -METR500T PO; -MIRT15TA PO; +POLY17PO4 PO; -TEMA7.5C PO
--- NOTE | 2018-11-16 18:05 | NUR ---
LATANYA TAVAREZ FROM SNF FOR FAILURE TO THRIVE AND WEIGHT LOSS, TO ER BED 9, HOOKED TO MONITOR, CHANGED TO GOWN, PROVIDED W WARM BLANKET, AWAITING MD ALEXANDER.
--- NOTE | 2018-11-16 18:10 | NUR ---
DR RAI AT BEDSIDE
[2018-11-16] MEDS ORDERED: LORA-259 PO (18:16)
[2018-11-16] MEDS ORDERED: ATOR20TA PO (18:24)
[2018-11-16] MEDS ORDERED: TEMA15CA5 PO (18:24)
[2018-11-16] MEDS ORDERED: AMLO10TA4 PO (18:24)
[2018-11-16] MEDS ORDERED: DEXT1CAP3 PO (18:24)
[2018-11-16] MEDS ORDERED: TYL2T PO (18:24)
[2018-11-16] MEDS ORDERED: CHOL200026 PO (18:24)
[2018-11-16] MEDS ORDERED: CLOP75TA15 PO (18:24)
[2018-11-16] MEDS ORDERED: DIVA125C2 PO (18:24)
[2018-11-16] MEDS ORDERED: DOCU-141 PO (18:27)
[2018-11-16 18:28] LABS: BASOPHILS % (AUTO) 0.3 % (0.0-2.0); EOSINOPHILS % (AUTO) 0.3 % (0.0-6.0); HEMATOCRIT 36 % (33-45); HEMOGLOBIN 11.9 g/dL (11.5-14.8); LYMPHOCYTES # (AUTO) 1.7 /CMM (0.8-4.8); LYMPHOCYTES % (AUTO) 25.7 % (20.0-44.0); MEAN CORPUSCULAR HGB CONC 33 g/dl (31.0-36.0); MEAN CORPUSCULAR VOLUME 101 fL (82-100); MONOCYTES # (AUTO) 0.6 /CMM (0.1-1.30); MONOCYTES % (AUTO) 9.7 % (2.0-12.0); NEUTROPHILS # (AUTO) 4.2 /CMM (1.8-8.9); PLATELET COUNT (AUTO) 77 /CMM (150-450); RED BLOOD CELL COUNT(AUTO) 3.54 MIL/uL (4.0-5.2); WHITE BLOOD COUNT (AUTO) 6.5 K/uL (4.3-11.0)
[2018-11-16] MEDS ORDERED: IV NS 0.9% 500 ML BAG IV ONE (18:30)
[2018-11-16] MEDS ORDERED: CRAN3875 PO (18:30)
[2018-11-16 18:45] LABS: CALCIUM, SERUM 10.3 mg/dL (8.5-10.1); CARBON DIOXIDE 34 mmol/L (21-32); CHLORIDE 107 mmol/L (98-107); CREATININE 1.6 mg/dL (0.6-1.3); GLUCOSE 135 mg/dL (74-106); POTASSIUM 4.9 mmol/L (3.5-5.1); SODIUM SERUM 144 mmol/L (136-145); UREA NITROGEN, BLOOD 33 mg/dL (7-18)
--- NOTE | 2018-11-16 18:45 | NUR ---
WHEELED OUT VIA [facility] FOR CT SCAN.
[2018-11-16 18:50] LABS: BILIRUBIN,TOTAL 0.3 mg/dL (0.2-1.0)
[2018-11-16 18:51] LABS: ALANINE AMINOTRANSFERASE 12 U/L (12-78); ALBUMIN 2.3 g/dL (3.4-5.0); ALKALINE PHOSPHATASE 99 U/L (46-116); ASPARTATE AMINOTRANSFERASE 17 U/L (15-37); BILIRUBIN,DIRECT 0.1 mg/dL (0.0-0.2); TOTAL PROTEIN, SERUM 7.2 g/dL (6.4-8.2)
[2018-11-16 19:08] LABS: LYMPHOCYTES % (MANUAL) 28 % (16-48); MONOCYTES % (MANUAL) 5 % (0-11.0); NEUTROPHILS % (MANUAL) 67 (42-76)
[2018-11-16 19:09] LABS: SERUM AMMONIA 11 umol/L (11-32)
--- NOTE | 2018-11-16 19:10 | NUR ---
RECEIVED VERBAL ORDER FROM DR RAI TO INSERT INDWELLING CEJA CATHETER. CARRIED OUT ORDER.
--- NOTE | 2018-11-16 19:20 | NUR ---
NOTED W BLEEDING AT IV PERIPHERAL SITE. REMOVED IV LINE AND APPLIED PRESSURE. PT ON PLAVIX IN SNF. MADE AWARE.
--- NOTE | 2018-11-16 19:30 | NUR ---
URINE SPECIMEN SENT TO LAB.
--- NOTE | 2018-11-16 19:35 | NUR ---
REPORT GIVEN TO PHILIPP HESTER FOR NAY
[2018-11-16 19:39] LABS: APPEARANCE,URINE Cloudy (CLEAR); BILIRUBIN,URINE Negative (NEGATIVE); BLOOD, URINE Small Ery/uL (NEGATIVE); COLOR,URINE Yellow (YELLOW); KETONES,URINE Negative (NEGATIVE); LEUKOCYTE ESTERASE ,URINE Small (NEGATIVE); NITRITE, URINE Positive (NEGATIVE); PH,URINE 5.5 (5.0-8.0); PROTEIN,URINE 30 mg/dl (NEGATIVE); UGLUCOSE Negative (NEGATIVE); UROBILINOGEN,URINE 0.2 EU/dL (0.2)
[2018-11-16 19:49] LABS: BACTERIA,URINE Many /HPF (None Seen); SQUAMOUS EPITHELIAL CELL,UR Few /HPF (None Seen); WBC,URINE TOO NUMEROUS TO COUN /HPF (0-3)
[2018-11-16] MEDS ORDERED: IV NS 0.9% 1,000 ML BAG IV ONE (20:00)
[2018-11-16] MEDS ORDERED: VANCOMYCIN 1 GM in IV D5W 250 ML IV ONE (20:00)
[2018-11-16] MEDS: CIPROFLOXACIN IV RTU 400 MG in PREMIX 1 EA IV SCH ×2 (20:00→22:11)
[2018-11-16] MEDS ORDERED: VANCOMYCIN 1 GM VIAL ONE (20:11)
[2018-11-16] MEDS ORDERED: CIPROFLOXACIN IV RTU 200 ML IV ONE (20:11)
--- NOTE | 2018-11-16 20:21 | NUR ---
CALLED NURSING SUP FOR TELE BED FOR THIS PT
--- NOTE | 2018-11-16 20:44 | NUR ---
PT ASSIGNED TO RM 115-1.
--- NOTE | 2018-11-16 21:12 | NUR ---
CIPRO TO BE INFUSED ON FLOOR. FLOOR NURSE AWARE.
--- NOTE | 2018-11-16 21:12 | NUR ---
REPORT GIVEN TO MIR RAMIREZ FOR NAY
[2018-11-16 21:20] VITALS: BP 97/56
--- NOTE | 2018-11-16 21:20 | NUR ---
haleigh rn notes Received patient on carlos from ER. Patient is alert and screaming not being able to answer to any question. patient is on ra with spo2 of 99%, temperature 94.8F. patient was covered with Oscar hugger. patient was placed on animal stunner with SR.Ruiz catheter is in place draining yellow, cloudy urine on gravity. skin assessment is done and pictures are in chart. no S/S of pain or any distress at this time.Left hand G20 IV line is patient and intact. All safety measures are implemented, bed in low, locked position, call light in reach. will continue to monitor patient and recheck temperature.
[2018-11-16] MEDS ORDERED: NA PHOS,M-B/NA PHOS,DI-BA 1 EA ENEMA RC PRN (21:30)
[2018-11-16] MEDS ORDERED: Z GUARD REMEDY 2 OZ OINT TP PRN (21:30)
[2018-11-16] MEDS ORDERED: ONDANSETRON HCL/PF 4 MG/2 ML VIAL IVP PRN (21:30)
[2018-11-16] MEDS ORDERED: MORPHINE SULFATE INJ 2 MG/ML DISP.SYRIN IV PRN (21:30)
[2018-11-16] MEDS ORDERED: ZOLPIDEM TARTRATE 5 MG TABLET PO PRN (21:30)
[2018-11-16] MEDS ORDERED: HYDROCODONE/APAP 5/325MG 1 EACH TABLET PO PRN (21:30)
[2018-11-16] MEDS ORDERED: LORAZEPAM 1 MG TABLET PO PRN (21:30)
[2018-11-16] MEDS ORDERED: MAGNESIUM HYDROXIDE 30 ML UDC PO PRN (21:30)
[2018-11-16] MEDS ORDERED: MAG HYDROX/AL HYDROX/SIMETH 30 ML UDC PO PRN (21:30)
[2018-11-16] MEDS ORDERED: BISACODYL SUPP (10 MG) 10 MG/SUPP.RECT SUPP.RECT RC PRN (21:30)
[2018-11-16] MEDS ORDERED: ACETAMINOPHEN 325 MG TABLET PO PRN ×2 (21:30)
[2018-11-16] MEDS ORDERED: Medication Not On Formulary EA (Atorvastatin Calcium (Lipitor) 20 MG) PO SCH (22:00)
[2018-11-16] MEDS: ENOXAPARIN SODIUM 30 MG/0.3 ML DISP.SYRIN SQ SCH (22:11)
[2018-11-16] MEDS: IV NS 0.9% 1,000 ML IV PRN (22:17)
[2018-11-16] MEDS: ATORVASTATIN 10 MG TABLET PO SCH (23:00)
[2018-11-16] MEDS ORDERED: MEROPENEM 500 MG in IV NS 0.9% 50 ML IV SCH (23:00)
--- NOTE | 2018-11-16 23:00 | NUR ---
rn notes patient is veery sleepy and was not able to swallow atorvastatin 20mg po.
[2018-11-17] VITALS (7 sets, daily range): BP systolic 100–149; BP diastolic 48–87
--- NOTE | 2018-11-17 | NUR ---
rn notes temperature is 97.6F. will continue to monitor and recheck pt temperature again later.
[2018-11-17] MEDS: ATORVASTATIN 10 MG TABLET PO SCH ×2 (00:40→21:25)
[2018-11-17] MEDS ORDERED: MEROPENEM 500 MG VIAL IV ONE (00:49)
[2018-11-17] MEDS ORDERED: MEROPENEM 1 G in IV NS 0.9% 100 ML IV SCH (05:00)
[2018-11-17 06:56] LABS: ALANINE AMINOTRANSFERASE 8 U/L (12-78); ALBUMIN 1.7 g/dL (3.4-5.0); ALKALINE PHOSPHATASE 69 U/L (46-116); ASPARTATE AMINOTRANSFERASE 11 U/L (15-37); BILIRUBIN,TOTAL 0.3 mg/dL (0.2-1.0); CALCIUM, SERUM 8.8 mg/dL (8.5-10.1); CARBON DIOXIDE 26 mmol/L (21-32); CHLORIDE 108 mmol/L (98-107); CREATININE 1.3 mg/dL (0.6-1.3); GLUCOSE 74 mg/dL (74-106); MAGNESIUM 1.9 mg/dL (1.8-2.4); PHOSPHORUS 2.8 mg/dL (2.5-4.9); POTASSIUM 4.3 mmol/L (3.5-5.1); SODIUM SERUM 142 mmol/L (136-145); TOTAL PROTEIN, SERUM 5.2 g/dL (6.4-8.2); UREA NITROGEN, BLOOD 28 mg/dL (7-18)
[2018-11-17 06:58] LABS: BASOPHILS % (AUTO) 0.2 % (0.0-2.0); EOSINOPHILS % (AUTO) 0.5 % (0.0-6.0); HEMATOCRIT 28 % (33-45); HEMOGLOBIN 9.3 g/dL (11.5-14.8); LYMPHOCYTES % (AUTO) 20.4 % (20.0-44.0); MEAN CORPUSCULAR HGB CONC 34 g/dl (31.0-36.0); MEAN CORPUSCULAR VOLUME 100 fL (82-100); MONOCYTES # (AUTO) 0.5 /CMM (0.1-1.30); MONOCYTES % (AUTO) 11.1 % (2.0-12.0); NEUTROPHILS # (AUTO) 3.3 /CMM (1.8-8.9); NEUTROPHILS % (AUTO) 67.8 % (43.0-81.0); PLATELET COUNT (AUTO) 65 /CMM (150-450); RED BLOOD CELL COUNT(AUTO) 2.78 MIL/uL (4.0-5.2); WHITE BLOOD COUNT (AUTO) 4.8 K/uL (4.3-11.0)
--- NOTE | 2018-11-17 07:10 | NUR ---
haleigh rn notes Received patient on veronicarney from ER. Patient is sleeping still not being able to answer to any question. patient is on ra with spo2 of 98%, temperature >98F. Ruiz catheter is in place draining yellow, cloudy urine on gravity. no S/S of pain or any distress noted during my shift.Left hand G20 IV line is patient and intact. All safety measures are implemented, bed in low, locked position, call light in reach. will give the patient's report to am rn for cont. of pt care.
[2018-11-17 07:33] LABS: CHOLESTEROL 128 mg/dL (<200); HDL CHOLESTEROL 43 mg/dL (40-60); LDL 64 mg/dL (0-99); TRIGLYCERIDES 112 mg/dL (30-150)
[2018-11-17] MEDS ORDERED: FEE PK DOSING 1 MIN EA MC ONE ×3 (07:42→08:03)
[2018-11-17 08:22] LABS: BAND % (MANUAL) 3 % (0.0-5.0); EOSINOPHILS % (MANUAL) 1 % (0-4); LYMPHOCYTES % (MANUAL) 15 % (16-48); MONOCYTES % (MANUAL) 9 % (0-11.0); NEUTROPHILS % (MANUAL) 72 (42-76)
[2018-11-17] MEDS: DIVALPROEX SODIUM 125 MG CAP.SPRINK PO SCH ×2 (08:58→21:26)
[2018-11-17] MEDS: CALCIUM CARBONATE (1250) 500 MG TABLET PO SCH ×2 (08:58→17:19)
[2018-11-17] MEDS: CHOLECALCIFEROL 1,000 UNIT TABLET (VIT D3) PO SCH (08:59)
[2018-11-17] MEDS: risperiDONE 0.25 MG TABLET PO SCH ×2 (08:59→17:19)
[2018-11-17] MEDS: CLOPIDOGREL BISULFATE 75 MG TABLET PO SCH (08:59)
[2018-11-17] MEDS: DOCUSATE SODIUM 100 MG CAPSULE PO SCH ×2 (09:00→17:19)
[2018-11-17] MEDS ORDERED: Medication Not On Formulary EA (Cran/Vitc/Mannose/Inulin/Brom (Uti-Stat Liquid) 30 MG) PO SCH (09:00)
[2018-11-17] MEDS ORDERED: Medication Not On Formulary EA (Dextromethorphan Hbr/Quinidine (Nuedexta 20-10 Mg Capsul PO SCH (09:00)
[2018-11-17] MEDS: AMLODIPINE BESYLATE 10 MG TABLET PO SCH (09:00)
[2018-11-17] MEDS: IV NS 0.9% 1,000 ML IV PRN (10:15)
[2018-11-17] MEDS: MEROPENEM 1 G in IV NS 0.9% 100 ML IV SCH ×2 (10:21→21:25)
[2018-11-17] MEDS ORDERED: VANCOMYCIN 500 MG in IV D5W 100 ML IV SCH (15:00)
[2018-11-17] MEDS: LACTOBACILLUS RHAMNOSUS GG 1 EACH CAP.SPRINK PO SCH (17:19)
--- NOTE | 2018-11-17 18:32 | NUR ---
Patient increase in intake for dinner. Occurrences of a loud audible voice throughout shift. Encouraged verbalization by patient. Delayed response to yes and no questions. Patient denies pain. Provider Wes Cook NP, may consult Neurology for possible worsening dementia and if appropriate on Monday request family phone call by nurse child study team director to discuss gastrostomy tube placement if by mouth intake remains poor. Will endorse to next shift registered nurse. Ramo Zhong RN
--- NOTE | 2018-11-17 19:15 | NUR ---
RN M/S NOTE RECEIVED PT RESTING WITH HOB ELEVATED, AOX1, NO S/SX OF CARDIAC OR RESPIRATORY DISTRESS, SKIN KEPT CLEAN AND DRY, LFA #20G IV WITH NS AT 75ML/HR, PATENT FLUSHING WELL. DRESSING INTACT, F/C DRAINING YELLOW URINE TO GRAVITY, SAFETY MAINTAINED AT ALL TIMES, BED IN LOW LOCKED POSITION, CALL LIGHT WITHIN REACH, WILL CONTINUE TO MONITOR FOR ANY CHANGES.
[2018-11-17] MEDS: ENOXAPARIN SODIUM 30 MG/0.3 ML DISP.SYRIN SQ SCH (21:27)
[2018-11-18 04:00] VITALS: BP 99/69
[2018-11-18 08:00] VITALS: BP_SYST 138; BP_SYST 143; BP_DIAS 107; BP_DIAS 63
[2018-11-18 08:33] LABS: CALCIUM, SERUM 9.6 mg/dL (8.5-10.1); CARBON DIOXIDE 27 mmol/L (21-32); CHLORIDE 114 mmol/L (98-107); CREATININE 1.3 mg/dL (0.6-1.3); GLUCOSE 78 mg/dL (74-106); SODIUM SERUM 147 mmol/L (136-145); UREA NITROGEN, BLOOD 20 mg/dL (7-18)
[2018-11-18] MEDS: CLOPIDOGREL BISULFATE 75 MG TABLET PO SCH (09:34)
[2018-11-18] MEDS: DIVALPROEX SODIUM 125 MG CAP.SPRINK PO SCH ×2 (09:34→21:08)
[2018-11-18] MEDS: AMLODIPINE BESYLATE 10 MG TABLET PO SCH (09:34)
[2018-11-18] MEDS: risperiDONE 0.25 MG TABLET PO SCH ×2 (09:34→16:38)
[2018-11-18] MEDS: CALCIUM CARBONATE (1250) 500 MG TABLET PO SCH ×2 (09:34→16:38)
[2018-11-18] MEDS: CHOLECALCIFEROL 1,000 UNIT TABLET (VIT D3) PO SCH (09:34)
[2018-11-18] MEDS: MEROPENEM 1 G in IV NS 0.9% 100 ML IV SCH ×2 (09:34→21:07)
[2018-11-18] MEDS: DOCUSATE SODIUM 100 MG CAPSULE PO SCH ×2 (09:35→16:38)
[2018-11-18] MEDS: LACTOBACILLUS RHAMNOSUS GG 1 EACH CAP.SPRINK PO SCH ×2 (09:35→16:38)
[2018-11-18] MEDS ORDERED: ENSURE ENLIVE 237 ML LIQUID (VANILLA) PO SCH (13:00)
[2018-11-18 16:00] VITALS: BP 130/98
[2018-11-18] MEDS: MEGESTROL ACETATE SUSP 400 MG/10 ML UDC PO SCH (16:39)
[2018-11-18] MEDS: IV NS 0.9% 1,000 ML IV PRN (17:54)
--- NOTE | 2018-11-18 18:46 | NUR ---
Patient is more alert compared with 11/17/18 day shift. She is eating 50=75 % of meals. Still occasionally resistant to medication administration. Have been using crushed medication with apple sauce. Allow for extra time seems to help. Patient tolerated reposition every two hours well. Clean, patent and intact intravenous site. Will endorse to oncoming registered nurse. Ramo Zhong RN
--- NOTE | 2018-11-18 19:05 | NUR ---
RN MS OPENING NOTES RECEIVED PATIENT IN BED AWAKE ALERT AND ORIENTED X1, RESPIRATIONS EVEN AND UNLABORED WITH EQUAL RISE AND FALL OF CHEST, APPEARS TO BE FREE OF ANY PAIN OR DISCOMFORT, NO FACIAL GRIMACING, NO GRUNT OR MOANS PRESENT, NO SOB PRESENT, CEJA CATHETER INTACT AND PATENT DRAINING WELL URINE YELLOW/STEFANI, PROPER ALIGNMENT IN PLACE, PATIENT REPOSITIONED OFF SACRAL AREA, IV SITE TO LEFT FA #20 G INTACT AND PATENT, NO REDNESS, NO INFILTRATION PRESENT, IVF RUNNING ORDERED, ORIENTED TO STAFF AND CALL LIGHT AND KEPT WITHIN REACH, SAFETY PRECAUTIONS IN PLACE, LOW BED AND LOCKED, BED ALARM IN PLACE, ALL NEEDS ATTENDED AT THIS TIME, WILL CONTINUE TO MONITOR AND ATTEND TO NEEDS.
[2018-11-18 20:00] VITALS: BP 121/92
--- NOTE | 2018-11-18 20:48 | NUR ---
RN MS NOTES CALLED AND SPOKE TO SARA JUAREZ REGARDING LOVENOX ORDER AND PLT NOTED AT 65L. PER HOSPITALIST HOLD LOVENOX IF PLT LESS THAN 100. ORDER READ BACK AND VERIFIED AND CARRIED OUT. DOSE HELD.
[2018-11-18] MEDS: ENOXAPARIN SODIUM 30 MG/0.3 ML DISP.SYRIN SQ SCH (21:00)
[2018-11-18] MEDS: ATORVASTATIN 10 MG TABLET PO SCH (21:09)
[2018-11-19 04:00] VITALS: BP 124/80
--- NOTE | 2018-11-19 06:39 | NUR ---
RN MS CLOSING NOTES PATIENT IN BED AWAKE ALERT AND ORIENTED X1, NON VERBAL, RESPIRATIONS EVEN AND UNLABORED WITH EQUAL RISE AND FALL OF CHEST, APPEARS TO BE FREE OF ANY PAIN OR DISCOMFORT, NO FACIAL GRIMACING, NO GRUNT OR MOANS PRESENT, NO SOB PRESENT, CEJA CATHETER INTACT AND PATENT DRAINING WELL URINE YELLOW/STEFANI, PROPER ALIGNMENT IN PLACE, PATIENT REPOSITIONED OFFLOAD SACRAL AREA, MEPILEX INTACT AWAITING WOUND CARE CONSULT IV SITE TO LEFT FA #20 G INTACT AND PATENT, NO REDNESS, NO INFILTRATION PRESENT, IVF RUNNING ORDERED, CALL LIGHT KEPT WITHIN REACH, SAFETY PRECAUTIONS IN PLACE, LOW BED AND LOCKED, BED ALARM IN PLACE, ALL NEEDS ATTENDED AT THIS TIME, WILL CONTINUE TO MONITOR AND ENDORSE TO NEXT SHIFT NO CHANGES THROUGHOUT SHIFT.
[2018-11-19 06:43] LABS: CALCIUM, SERUM 9.3 mg/dL (8.5-10.1); CARBON DIOXIDE 26 mmol/L (21-32); CHLORIDE 112 mmol/L (98-107); GLUCOSE 100 mg/dL (74-106); POTASSIUM 4.1 mmol/L (3.5-5.1); SODIUM SERUM 144 mmol/L (136-145); UREA NITROGEN, BLOOD 18 mg/dL (7-18)
[2018-11-19 08:00] VITALS: BP 108/54
--- NOTE | 2018-11-19 08:00 | NUR ---
MS RN NOTES PATIENT IN BED RESTING NO SOB OR ACUTE DISTRESS NOTED. PATIENT SLEEPING IN BED COMFORTABLE. BED IN LOW LOCKED POSITION, CALL LIGHT WITHIN REACH. PERIPHERAL IV INTACT PATENT. WILL CONTINUE TO MONITOR.
[2018-11-19] MEDS: AMLODIPINE BESYLATE 10 MG TABLET PO SCH (09:00)
[2018-11-19] MEDS: DIVALPROEX SODIUM 125 MG CAP.SPRINK PO SCH ×2 (09:00→22:00)
[2018-11-19 09:04] LABS: BASOPHILS % (AUTO) 0.9 % (0.0-2.0); EOSINOPHILS % (AUTO) 0.3 % (0.0-6.0); HEMATOCRIT 27 % (33-45); HEMOGLOBIN 9.1 g/dL (11.5-14.8); LYMPHOCYTES # (AUTO) 1.4 /CMM (0.8-4.8); MEAN CORPUSCULAR HGB CONC 34 g/dl (31.0-36.0); MEAN CORPUSCULAR VOLUME 100 fL (82-100); MONOCYTES # (AUTO) 0.5 /CMM (0.1-1.30); MONOCYTES % (AUTO) 12.3 % (2.0-12.0); NEUTROPHILS % (AUTO) 51.5 % (43.0-81.0); PLATELET COUNT (AUTO) 63 /CMM (150-450); WHITE BLOOD COUNT (AUTO) 3.9 K/uL (4.3-11.0)
[2018-11-19] MEDS: MEGESTROL ACETATE SUSP 400 MG/10 ML UDC PO SCH ×2 (09:26→16:19)
[2018-11-19] MEDS: CLOPIDOGREL BISULFATE 75 MG TABLET PO SCH (09:26)
[2018-11-19] MEDS: LACTOBACILLUS RHAMNOSUS GG 1 EACH CAP.SPRINK PO SCH ×2 (09:26→17:00)
[2018-11-19] MEDS: risperiDONE 0.25 MG TABLET PO SCH ×2 (09:26→16:19)
[2018-11-19] MEDS: CHOLECALCIFEROL 1,000 UNIT TABLET (VIT D3) PO SCH (09:26)
[2018-11-19] MEDS: CALCIUM CARBONATE (1250) 500 MG TABLET PO SCH ×2 (09:26→17:00)
[2018-11-19] MEDS: DOCUSATE SODIUM 100 MG CAPSULE PO SCH ×2 (09:26→17:00)
[2018-11-19] MEDS: MEROPENEM 1 G in IV NS 0.9% 100 ML IV SCH ×2 (09:28→21:53)
[2018-11-19 09:45] LABS: BAND % (MANUAL) 1 % (0.0-5.0); LYMPHOCYTES % (MANUAL) 36 % (16-48); MONOCYTES % (MANUAL) 10 % (0-11.0); NEUTROPHILS % (MANUAL) 53 (42-76)
[2018-11-19 12:00] VITALS: BP 108/54
[2018-11-19] MEDS: IV D5/ 0.9% NACL 1,000 ML IV PRN (14:54)
[2018-11-19] MEDS ORDERED: IV D5/ 0.9% NACL 1,000 ML IV ONE (15:00)
[2018-11-19] MEDS ORDERED: LORAZEPAM INJ 2 MG/ML VIAL IV PRN (15:00)
--- NOTE | 2018-11-19 15:35 | NUR ---
MS RN NOTES SAWYER RASMUSSEN DISCUSSED PATIENT PLAN OF CARE WITH DAUGHTER TENA MARTINEZ DAUGHTER STATES SHE REQUEST PATIENT TO BE DNR/DNI WITH DETAILED EXPLANATION AND REGARDING ARTIFICIAL NUTRITION DAUGHTER STATES TO HAVE 24 HOURS TO THINK ABOUT THE TREATMENT AND WILL LET CALL BACK WITH DECISION. NOTED POLST COMPLETED. PATIENT RESTING IN BED WITH IV HYDRATION.,
[2018-11-19 16:00] VITALS: BP 111/61
--- NOTE | 2018-11-19 18:48 | NUR ---
MS RN NOTES PATIENT IN BED RESTING NO SOB OR ACUTE DISTRESS NOTED. PATIENT WITH POOR APATITE. PATIENTS BED IN LOW LOCKED POSITION. CALL LIGHT WITHIN REACH. BED IN LOW LOCKED POSITION. ALL DUE MEDICATIONS ADMINISTERED. ALL NEEDS MET. WILL ENDORSE TO PM SHIFT NAY.
--- NOTE | 2018-11-19 19:10 | NUR ---
MS/RN NOTES RECEIVED PT. LYING IN BED. PT. IS AWAKE, ALERT AND ORIENTED X1, ABLE TO ANSWER YES OR NO QUESTIONS. BREATHING EVEN AND UNLABORED ON ROOM AIR. NO SOB, RESPIRATORY DISTRESS OR COMPLAINTS OF PAIN NOTED AT THIS TIME. PT. WITH LEFT FOREARM 20 GAUGE PERIPHERAL IV PRESENT, PATENT AND INTACT ADMINISTERING TO PT. D5NS @ 75 ML/HR. BED LOCKED AND IN LOWEST POSITION, SIDE RAILS UP X3, BED ALARM ON, CALL LIGHT WITHIN REACH, WILL CONTINUE TO MONITOR.
[2018-11-19 20:00] VITALS: BP 126/69
[2018-11-19] MEDS: ENOXAPARIN SODIUM 30 MG/0.3 ML DISP.SYRIN SQ SCH (21:00)
[2018-11-19] MEDS: ATORVASTATIN 10 MG TABLET PO SCH (22:00)
[2018-11-20 04:00] VITALS: BP 110/76
[2018-11-20 05:49] LABS: BASOPHILS # (AUTO) 0.1 /CMM (0.0-0.2); BASOPHILS % (AUTO) 1.5 % (0.0-2.0); EOSINOPHILS % (AUTO) 0.9 % (0.0-6.0); HEMATOCRIT 29 % (33-45); HEMOGLOBIN 9.9 g/dL (11.5-14.8); LYMPHOCYTES # (AUTO) 1.4 /CMM (0.8-4.8); LYMPHOCYTES % (AUTO) 34.6 % (20.0-44.0); MEAN CORPUSCULAR HGB CONC 34 g/dl (31.0-36.0); MEAN CORPUSCULAR VOLUME 99 fL (82-100); MONOCYTES # (AUTO) 0.6 /CMM (0.1-1.30); MONOCYTES % (AUTO) 15.3 % (2.0-12.0); NEUTROPHILS % (AUTO) 47.7 % (43.0-81.0); PLATELET COUNT (AUTO) 79 /CMM (150-450); RED BLOOD CELL COUNT(AUTO) 2.96 MIL/uL (4.0-5.2); WHITE BLOOD COUNT (AUTO) 4.2 K/uL (4.3-11.0)
[2018-11-20 06:41] LABS: ALANINE AMINOTRANSFERASE 12 U/L (12-78); ALBUMIN 1.7 g/dL (3.4-5.0); ALKALINE PHOSPHATASE 69 U/L (46-116); ASPARTATE AMINOTRANSFERASE 14 U/L (15-37); BILIRUBIN,TOTAL 0.2 mg/dL (0.2-1.0); CALCIUM, SERUM 9.4 mg/dL (8.5-10.1); CARBON DIOXIDE 25 mmol/L (21-32); CHLORIDE 112 mmol/L (98-107); GLUCOSE 108 mg/dL (74-106); MAGNESIUM 1.7 mg/dL (1.8-2.4); PHOSPHORUS 1.9 mg/dL (2.5-4.9); POTASSIUM 3.5 mmol/L (3.5-5.1); SODIUM SERUM 143 mmol/L (136-145); TOTAL PROTEIN, SERUM 5.6 g/dL (6.4-8.2); UREA NITROGEN, BLOOD 12 mg/dL (7-18)
--- NOTE | 2018-11-20 06:50 | NUR ---
MS/RN NOTES RECEIVED PT. LYING IN BED RESTING. BREATHING EVEN AND UNLABORED ON ROOM AIR. NO SOB, RESPIRATORY DISTRESS OR COMPLAINTS OF PAIN NOTED AT THIS TIME. PT. WITH LEFT FOREARM 20 GAUGE PERIPHERAL IV PRESENT, PATENT AND INTACT ADMINISTERING TO PT. D5NS @ 75 ML/HR. ALL PT. NEEDS MET. BED LOCKED AND IN LOWEST POSITION, SIDE RAILS UP X3, BED ALARM ON, CALL LIGHT WITHIN REACH, WILL ENDORSE TO DAYSHIFT NURSE FOR CONTINUITY OF CARE.
[2018-11-20 07:04] LABS: BAND % (MANUAL) 1 % (0.0-5.0); LYMPHOCYTES % (MANUAL) 44 % (16-48); NEUTROPHILS % (MANUAL) 47 (42-76)
[2018-11-20 07:05] LABS: EOSINOPHILS % (MANUAL) 1 % (0-4); MONOCYTES % (MANUAL) 7 % (0-11.0)
--- NOTE | 2018-11-20 07:15 | NUR ---
RN NOTES RECEIVED PT IN BED SLEEPING COMFORTABLY. ABLE TO RESPOND TO VERBAL AND TACTILE STIMULI. NO PAIN OR FACIAL GRIMACING AT THIS TIME. RESPIRATION EVEN AND UNLABORED. SKIN IS DRY WARM TO TOUCH. PT ON ROOM AIR. NOTED WITH LEFT FOREARM IV ACCESS. INTACT AND PATENT. FLUSHING WELL. NO S/S OF INFECTION OR INFILTRATION. ALL NEEDS ANTICIPATED. CALL LIGHT WITHIN REACHED. BED LOCKED AND IN LOW POSITION. WILL CONTINUE TO MONITOR.
[2018-11-20 08:00] VITALS: BP 113/50
[2018-11-20] MEDS ORDERED: Magnesium 1GM/D5W 100ML PREMIX 50 ML IV SCH (08:03)
[2018-11-20] MEDS: MEROPENEM 1 G in IV NS 0.9% 100 ML IV SCH ×2 (09:24→22:06)
[2018-11-20] MEDS: IV D5/ 0.9% NACL 1,000 ML IV PRN (09:24)
[2018-11-20] MEDS: MEGESTROL ACETATE SUSP 400 MG/10 ML UDC PO SCH ×2 (09:39→16:32)
[2018-11-20] MEDS: LACTOBACILLUS RHAMNOSUS GG 1 EACH CAP.SPRINK PO SCH ×2 (09:39→16:32)
[2018-11-20] MEDS: risperiDONE 0.25 MG TABLET PO SCH ×2 (09:40→16:32)
[2018-11-20] MEDS: CLOPIDOGREL BISULFATE 75 MG TABLET PO SCH (09:40)
[2018-11-20] MEDS: AMLODIPINE BESYLATE 10 MG TABLET PO SCH (09:40)
[2018-11-20] MEDS: DOCUSATE SODIUM 100 MG CAPSULE PO SCH ×2 (09:40→16:32)
[2018-11-20] MEDS: CHOLECALCIFEROL 1,000 UNIT TABLET (VIT D3) PO SCH (09:40)
[2018-11-20] MEDS: CALCIUM CARBONATE (1250) 500 MG TABLET PO SCH ×2 (09:40→16:32)
[2018-11-20] MEDS: DIVALPROEX SODIUM 250 MG TABLET.DR PO SCH ×2 (09:42→22:05)
[2018-11-20] MEDS: POTASSIUM PHOSPHATE MM 5 MMOL in IV D5W 100 ML IV SCH ×2 (11:51→13:48)
[2018-11-20] MEDS: Magnesium 1GM/D5W 100ML PREMIX 100 ML IV SCH ×2 (15:04→16:28)
[2018-11-20 16:00] VITALS: BP 157/61
--- NOTE | 2018-11-20 19:15 | NUR ---
RN CLOSING NOTES PATIENT IN BED SLEEPING COMFORTABLY. EASILY AROUSABLE. RESPIRATION EVEN AND UNLABORED. HOB ELEVATED. SKIN IS DRY WARM TO TOUCH. NO PAIN OR ACUTE DISTRESS AT THIS TIME. IV ACCESS ON LEFT FOREARM INTACT AND PATENT. NO S/S OF INFECTION. ABLE TO TOLERATE INFUSION WELL. ALL NEEDS ANTICIPATED. KEPT CLEAN AND DRY. CALL LIGHT WITHIN REACH. BED LOCKED AND IN LOWEST POSITION. ENDORSED TO PM NURSE FOR NAY.
--- NOTE | 2018-11-20 19:40 | NUR ---
RN NOTES RECEIVED PT IN BED SLEEPING COMFORTABLY. ABLE TO RESPOND TO VERBAL AND TACTILE STIMULI. NO PAIN OR FACIAL GRIMACING AT THIS TIME. RESPIRATION EVEN AND UNLABORED. SKIN IS DRY WARM TO TOUCH. PT ON ROOM AIR. NOTED WITH LEFT FOREARM IV ACCESS WITH IV FLUIDS ORDERED. INTACT AND PATENT. FLUSHING WELL. NO S/S OF INFECTION OR INFILTRATION. ALL NEEDS ANTICIPATED. CALL LIGHT WITHIN REACHED. BED LOCKED AND IN LOW POSITION. WILL CONTINUE TO MONITOR.
[2018-11-20 20:00] VITALS: BP 129/36
[2018-11-20] MEDS: ENOXAPARIN SODIUM 30 MG/0.3 ML DISP.SYRIN SQ SCH (21:00)
--- NOTE | 2018-11-20 21:00 | NUR ---
RN NOTES LOVENOX 30MG AT 2100 WILL BE HELD DUE TO LOW PLATELETS NUMBER PER MD ORDER.
[2018-11-20] MEDS: ATORVASTATIN 10 MG TABLET PO SCH (22:05)
[2018-11-21 04:00] VITALS: BP 121/35
[2018-11-21] MEDS: IV D5/ 0.9% NACL 1,000 ML IV PRN (05:44)
[2018-11-21 07:03] LABS: BASOPHILS % (AUTO) 0.9 % (0.0-2.0); EOSINOPHILS % (AUTO) 1.4 % (0.0-6.0); HEMATOCRIT 28 % (33-45); HEMOGLOBIN 9.6 g/dL (11.5-14.8); LYMPHOCYTES # (AUTO) 1.8 /CMM (0.8-4.8); LYMPHOCYTES % (AUTO) 41.1 % (20.0-44.0); MEAN CORPUSCULAR HGB CONC 34 g/dl (31.0-36.0); MEAN CORPUSCULAR VOLUME 99 fL (82-100); MONOCYTES # (AUTO) 0.5 /CMM (0.1-1.30); MONOCYTES % (AUTO) 12.2 % (2.0-12.0); NEUTROPHILS % (AUTO) 44.4 % (43.0-81.0); PLATELET COUNT (AUTO) 102 /CMM (150-450); RED BLOOD CELL COUNT(AUTO) 2.85 MIL/uL (4.0-5.2); WHITE BLOOD COUNT (AUTO) 4.5 K/uL (4.3-11.0)
--- NOTE | 2018-11-21 07:20 | NUR ---
MS RN OPENING NOTES RECEIVED PT IN BED SLEEPING, BUT EASY TO AROUSE. ABLE TO RESPOND TO VERBAL AND TACTILE STIMULI. NO PAIN OR FACIAL GRIMACING AT THIS TIME. ON RA, RESPIRATION EVEN AND UNLABORED. SKIN IS DRY WARM TO TOUCH. NOTED WITH LEFT FOREARM IV ACCESS WITH IV FLUIDS ORDERED. INTACT AND PATENT. FLUSHING WELL. NO S/S OF INFECTION OR INFILTRATION. CALL LIGHT WITHIN REACH. BED LOCKED AND IN LOW POSITION. WILL CONTINUE TO MONITOR.
[2018-11-21 07:33] LABS: ALANINE AMINOTRANSFERASE 11 U/L (12-78); ALBUMIN 1.6 g/dL (3.4-5.0); ALKALINE PHOSPHATASE 72 U/L (46-116); ASPARTATE AMINOTRANSFERASE 16 U/L (15-37); BILIRUBIN,TOTAL 0.2 mg/dL (0.2-1.0); CALCIUM, SERUM 8.9 mg/dL (8.5-10.1); CARBON DIOXIDE 26 mmol/L (21-32); CHLORIDE 114 mmol/L (98-107); GLUCOSE 102 mg/dL (74-106); MAGNESIUM 2.6 mg/dL (1.8-2.4); PHOSPHORUS 2.2 mg/dL (2.5-4.9); POTASSIUM 3.8 mmol/L (3.5-5.1); SODIUM SERUM 145 mmol/L (136-145); TOTAL PROTEIN, SERUM 5.2 g/dL (6.4-8.2); UREA NITROGEN, BLOOD 11 mg/dL (7-18)
[2018-11-21 08:00] VITALS: BP 145/70
[2018-11-21] MEDS: MEROPENEM 1 G in IV NS 0.9% 100 ML IV SCH (08:23)
[2018-11-21] MEDS: MEGESTROL ACETATE SUSP 400 MG/10 ML UDC PO SCH (08:24)
[2018-11-21] MEDS: CHOLECALCIFEROL 1,000 UNIT TABLET (VIT D3) PO SCH (08:25)
[2018-11-21] MEDS: risperiDONE 0.25 MG TABLET PO SCH (08:25)
[2018-11-21] MEDS: DOCUSATE SODIUM 100 MG CAPSULE PO SCH (08:25)
[2018-11-21] MEDS: CLOPIDOGREL BISULFATE 75 MG TABLET PO SCH (08:25)
[2018-11-21 08:26] VITALS: BP 145/70
[2018-11-21] MEDS: CALCIUM CARBONATE (1250) 500 MG TABLET PO SCH (08:26)
[2018-11-21] MEDS: AMLODIPINE BESYLATE 10 MG TABLET PO SCH (08:26)
[2018-11-21] MEDS: LACTOBACILLUS RHAMNOSUS GG 1 EACH CAP.SPRINK PO SCH (08:26)
[2018-11-21] MEDS: DIVALPROEX SODIUM 250 MG TABLET.DR PO SCH (08:27)
--- NOTE | 2018-11-21 10:35 | NUR ---
MS RN NOTES PATIENT ROUNDING WITH MD AT 1030. PATIENT POSSIBLE DISCHARGE TODAY. CALLED FAMILY TO NOTIFY POSSIBLE DISCHARGE, NO ANSWER, BUT LEFT VOICEMAIL FOR CALLBACK. WILL CONT. TO MONITOR PATIENT.
[2018-11-21] MEDS ORDERED: NEUTRA PHOS 1 POWD.PACKET PO ONE (12:00)
--- NOTE | 2018-11-21 13:50 | NUR ---
MS RN NOTES CALLED [facility] AND ENDORSED PATIENT TO MIR SAMANIEGO FOR NAY.
--- NOTE | 2018-11-21 15:30 | NUR ---
WOOD CARVER NOTES PATIENT STABLE, SLEEPING, BUT EASY TO AROUSE. VITAL SIGNS WNL. ABLE TO RESPOND TO VERBAL AND TACTILE STIMULI. NO PAIN OR FACIAL GRIMACING NOTED. ON RA, RESPIRATION EVEN AND UNLABORED. SKIN IS DRY WARM TO TOUCH. NOTED WITH LEFT FOREARM IV ACCESS WITH IV FLUIDS ORDERED. INTACT AND PATENT. FLUSHING WELL. NO S/S OF INFECTION OR INFILTRATION. CEJA CATHETER IN PLACE, DRAINING WELL. CALL LIGHT WITHIN REACH THROUGHOUT SHIFT. BED LOCKED AND IN LOW POSITION. ALL MD ORDERS ATTENDED AND ENDORSED TO AMBULANCE PERSONNEL. EXIT CARE DONE. PICTURES TAKEN AND RECORDED. PATIENT LEFT THE UNIT WITH AMBULANCE PERSONNEL VIA GURNEY.
== END 2018-11-21 15:36 | DRG 871 ==
LOC: ER 18:05 → TELE1 20:51 → MEDSG1 11-17 14:13
PROVIDERS: ADMIT Hospitalist; ATTEND Internal Medicine
DX: A41.9 Sepsis, unspecified organism (principal); E43 Unspecified severe protein-calorie malnutrition; G93.41 Metabolic encephalopathy; R53.2 Functional quadriplegia; N17.0 Acute kidney failure with tubular necrosis; N39.0 Urinary tract infection, site not specified; Z68.1 Body mass index [BMI] 19.9 or less, adult; G91.9 Hydrocephalus, unspecified; D68.59 Other primary thrombophilia; R64 Cachexia; D69.6 Thrombocytopenia, unspecified; G40.909 Epilepsy, unspecified, not intractable, without status epilepticus; I12.9 Hypertensive chronic kidney disease with stage 1 through stage 4 chronic kidney disease, or unspecified chronic kidney disease; R62.7 Adult failure to thrive; R65.20 Severe sepsis without septic shock; N18.9 Chronic kidney disease, unspecified; Z88.0 Allergy status to penicillin; Z88.2 Allergy status to sulfonamides; I25.10 Atherosclerotic heart disease of native coronary artery without angina pectoris; F03.90 Unspecified dementia, unspecified severity, without behavioral disturbance, psychotic disturbance, mood disturbance, and anxiety; Z16.12 Extended spectrum beta lactamase (ESBL) resistance; B96.20 Unspecified Escherichia coli [E. coli] as the cause of diseases classified elsewhere; D63.8 Anemia in other chronic diseases classified elsewhere; Z86.73 Personal history of transient ischemic attack (TIA), and cerebral infarction without residual deficits; Z74.01 Bed confinement status; L89.150 Pressure ulcer of sacral region, unstageable; L98.8 Other specified disorders of the skin and subcutaneous tissue; R58 Hemorrhage, not elsewhere classified; M62.84 Sarcopenia; E78.5 Hyperlipidemia, unspecified; M62.40 Contracture of muscle, unspecified site
CPT/HCPCS: 36415; 70450-TC; 71045-TC; 80048-TC; 80053-TC; 80061-TC; 80076-TC; 81000-TC; 82140-TC; 83605-TC; 83735-TC; 84100-TC; 84443-TC; 84484-TC; 85025-TC; 85730-TC; 87040-TC; 87081-TC; 87086-TC; 87186-TC; 92526; 92611-TC; A4216; G0378; J0744; J1650; J2185; J3370; J3475; J3490; J7030; J7040; J7042; J7060

== ENCOUNTER 2019-01-15 22:07 | Inpatient (IN) | payer MEDICARE, OTHER ==
[~2019-01-15] VITALS: Ht 142.2 cm; Wt 36.5 kg
[~2019-01-15 22:07] MED LIST changes: -ACET-868 PO; +AMLO10TA4 PO; -AMLO10TA7 PO; +ATOR20TA PO; +CRAN3875 PO; +DEXT1CAP3 PO; -FOLI1TAB16 PO; +LORA-259 PO; -MERO1VIA3 IV; -POLY17PO4 PO; +TEMA15CA5 PO; +TYL2T PO
--- NOTE | 2019-01-15 23:21 | NUR ---
IV LINE OBTAINED ON LFA22G.
--- NOTE | 2019-01-15 23:23 | NUR ---
EDER FROM [facility]. PT IS LETHARGIC, SLEEPING BUT EASILY ARROUSABLE. PT IS NON VERBAL BUT MOANS. PT IS CONTRACTED UPPER AND LOWER EXTREMETIES. BROUGHT IN D/T POSSITIVE FOR INFILTRATES ON CHEST XRAY AND UTI FROM FACILITY. PT IS AFEBRILE UPON PRESENTATION. F/C INPLACE. IV LINE OBTAINED ON LFA 22G. BLOOD DRAWN AND EKG DONE. XRAY AT BEDSIDE WELL.
[2019-01-15] MEDS ORDERED: IV NS 0.9% 1,000 ML BAG IV ONE (23:30)
[2019-01-15 23:38] LABS: BASOPHILS % (AUTO) 0.2 % (0.0-2.0); HEMATOCRIT 37 % (33-45); HEMOGLOBIN 11.5 g/dL (11.5-14.8); MEAN CORPUSCULAR HGB CONC 32 g/dl (31.0-36.0); MEAN CORPUSCULAR VOLUME 98 fL (82-100); MONOCYTES # (AUTO) 1.3 /CMM (0.1-1.30); MONOCYTES % (AUTO) 8.4 % (2.0-12.0); NEUTROPHILS # (AUTO) 10.8 /CMM (1.8-8.9); NEUTROPHILS % (AUTO) 71.4 % (43.0-81.0); PLATELET COUNT (AUTO) 166 /CMM (150-450); RED BLOOD CELL COUNT(AUTO) 3.72 MIL/uL (4.0-5.2); WHITE BLOOD COUNT (AUTO) 15.1 K/uL (4.3-11.0)
[2019-01-15 23:52] LABS: BILIRUBIN,URINE Negative (NEGATIVE); BLOOD, URINE Moderate Ery/uL (NEGATIVE); COLOR,URINE Yellow (YELLOW); KETONES,URINE Trace (NEGATIVE); LEUKOCYTE ESTERASE ,URINE Large (NEGATIVE); NITRITE, URINE Positive (NEGATIVE); PROTEIN,URINE 100 mg/dl (NEGATIVE); UGLUCOSE Negative (NEGATIVE)
[2019-01-15 23:52] LABS: CALCIUM, SERUM 10.1 mg/dL (8.5-10.1); CARBON DIOXIDE 29 mmol/L (21-32); CHLORIDE 117 mmol/L (98-107); CREATININE 1.8 mg/dL (0.6-1.3); GLUCOSE 133 mg/dL (74-106); POTASSIUM 4.4 mmol/L (3.5-5.1); SODIUM SERUM 150 mmol/L (136-145); UREA NITROGEN, BLOOD 57 mg/dL (7-18)
[2019-01-15 23:54] LABS: APPEARANCE,URINE CLOUDY (CLEAR)
[2019-01-16 00:03] LABS: BACTERIA,URINE 4+ /HPF (None Seen); SQUAMOUS EPITHELIAL CELL,UR Few /HPF (None Seen); WBC,URINE 51-80 /HPF (0-3)
--- NOTE | 2019-01-16 01:32 | NUR ---
APRIL MENDEZ CALLED TO GIVE BED [id number].
--- NOTE | 2019-01-16 02:13 | NUR ---
REPORT GIVEN TO MIR WAHL FOR NAY. PT GOING TO [phone]
[2019-01-16 03:30] VITALS: BP 126/95
[2019-01-16] MEDS ORDERED: BISACODYL SUPP (10 MG) 10 MG/SUPP.RECT SUPP.RECT RC PRN (04:00)
[2019-01-16] MEDS ORDERED: Z GUARD REMEDY 2 OZ OINT TP PRN (04:00)
[2019-01-16] MEDS ORDERED: ONDANSETRON HCL/PF 4 MG/2 ML VIAL IVP PRN (04:00)
[2019-01-16] MEDS ORDERED: TEMAZEPAM 15 MG CAPSULE PO PRN (04:00)
[2019-01-16] MEDS ORDERED: MEROPENEM 500 MG VIAL IV ONE (04:15)
[2019-01-16] MEDS: IV 1/2NS 1000 ML 1,000 ML IV PRN (04:36)
[2019-01-16] MEDS ORDERED: MEROPENEM 500 MG in IV NS 0.9% 50 ML IV ONE (05:00)
[2019-01-16] MEDS ORDERED: MEROPENEM 500 MG in IV NS 0.9% 50 ML IV SCH (05:00)
--- NOTE | 2019-01-16 07:55 | NUR ---
MS RN OPENING NOTES RECEIVED PATIENT IN BED, ALERT AND AWAKE, NON-VERBAL. HOB. NO SOB. ON TELE MONITORING WITH SR: 75. NO EVIDENCE OF PAIN AT THIS TIME. LEFT FA G#22. ON 07/11 NS @ 75ML/HR MINAL WELL WITHOUT S/S OF COMPLICATIONS. BED IN LOWEST POSITION. BED SIDERAILS UP X2. CALL LIGHT WITHIN REACH. NPO AT THIS.
[2019-01-16 08:00] VITALS: BP 116/64
--- NOTE | 2019-01-16 08:15 | NUR ---
MS RN NOTE PER WOUND RN DR.SOM KERRY WILL BE COMPLETED WOUND CONSULT FOR PT.
[2019-01-16 08:34] LABS: BASOPHILS % (AUTO) 0.3 % (0.0-2.0); EOSINOPHILS % (AUTO) 0.4 % (0.0-6.0); HEMATOCRIT 32 % (33-45); LYMPHOCYTES # (AUTO) 2.1 /CMM (0.8-4.8); LYMPHOCYTES % (AUTO) 23.5 % (20.0-44.0); MEAN CORPUSCULAR HGB CONC 32 g/dl (31.0-36.0); MEAN CORPUSCULAR VOLUME 97 fL (82-100); MONOCYTES # (AUTO) 0.7 /CMM (0.1-1.30); MONOCYTES % (AUTO) 7.6 % (2.0-12.0); NEUTROPHILS % (AUTO) 68.2 % (43.0-81.0); PLATELET COUNT (AUTO) 138 /CMM (150-450); RED BLOOD CELL COUNT(AUTO) 3.27 MIL/uL (4.0-5.2); WHITE BLOOD COUNT (AUTO) 8.8 K/uL (4.3-11.0)
[2019-01-16 09:18] LABS: ALANINE AMINOTRANSFERASE 10 U/L (12-78); ALBUMIN 1.5 g/dL (3.4-5.0); ALKALINE PHOSPHATASE 84 U/L (46-116); ASPARTATE AMINOTRANSFERASE 14 U/L (15-37); BILIRUBIN,TOTAL 0.2 mg/dL (0.2-1.0); CALCIUM, SERUM 9.1 mg/dL (8.5-10.1); CARBON DIOXIDE 27 mmol/L (21-32); CHLORIDE 119 mmol/L (98-107); CREATININE 1.7 mg/dL (0.6-1.3); GLUCOSE 93 mg/dL (74-106); MAGNESIUM 2.2 mg/dL (1.8-2.4); PHOSPHORUS 2.4 mg/dL (2.5-4.9); POTASSIUM 4.1 mmol/L (3.5-5.1); SODIUM SERUM 151 mmol/L (136-145); TOTAL PROTEIN, SERUM 5.5 g/dL (6.4-8.2); UREA NITROGEN, BLOOD 49 mg/dL (7-18)
[2019-01-16] MEDS: CLOPIDOGREL BISULFATE 75 MG TABLET PO SCH (09:37)
[2019-01-16] MEDS: risperiDONE 0.25 MG TABLET PO SCH ×2 (09:37→16:38)
[2019-01-16] MEDS: CALCIUM CARBONATE (1250) 500 MG TABLET PO SCH ×2 (09:37→16:35)
[2019-01-16] MEDS: DOCUSATE SODIUM 100 MG CAPSULE PO SCH ×2 (09:37→16:38)
[2019-01-16] MEDS: CHOLECALCIFEROL 1,000 UNIT TABLET (VIT D3) PO SCH (09:37)
--- NOTE | 2019-01-16 09:37 | NUR ---
MS RN NOTE PER GEORGI IN PHARMACY THEY WILL SEND UP REFILL OF DEPAKOTE SPRINKLE, AWAITING RESTOCK.
--- NOTE | 2019-01-16 10:28 | NUR ---
MS RN NOTE SPOKE WITH GEORGI IN PHARMACY AGAIN REGARDING DEPAKOTE SPRINKLE, INFORMED THAT BOTH PYXIS STILL NOT STOCKED, PER GEORGI SHE WILL SEND SOMEONE TO REFILL
[2019-01-16] MEDS: DIVALPROEX SODIUM 125 MG CAP.SPRINK PO SCH ×2 (11:08→21:36)
[2019-01-16] MEDS: MEROPENEM 500 MG in IV NS 0.9% 100 ML IV SCH ×2 (11:11→20:35)
--- NOTE | 2019-01-16 11:40 | NUR ---
MS RN NOTE PER PRIMARY HOSPITALIST AMBER ESQUIVEL, KATYA NO REPLACEMENT OF PHOS AT THIS TIME, WILL RE-CHECK LABS TOMORROW.
[2019-01-16] MEDS ORDERED: K PHOS NEUTRAL 250 MG TABLET PO ONE (13:00)
--- NOTE | 2019-01-16 14:54 | NUR ---
MS RN NOTES\ ATTEMPTED TO CALL ROMAIN FOR CONSENT FOR DEBRIDEMENT OF SCARUM, NO ANSWER, LEFT MESSAGE ON VOICEMAIL TO RETURN CALL.
--- NOTE | 2019-01-16 15:47 | NUR ---
MS RN NOTE TELEPHONE CONSENT FOR BEDSIDE DEBRIDEMENT OF THE SACRUM SCHEDULED FOR TOMORROW OBTAINED UTILIZING 2 RN VERIFICATION FROM DAUGHTER ROMAIN AND PLACED IN CHART.
[2019-01-16] MEDS: HYDROGEL DRESSING 90 GM TUBE TP SCH ×2 (15:52→21:36)
[2019-01-16 16:00] VITALS: BP 128/89
--- NOTE | 2019-01-16 19:10 | NUR ---
MS RN NOTES RECEIVED PT IN BED ASLEEP BUT EASILY AWOKEN VERBALLY OR BY TOUCH. PT A/O X0, NON-VERBAL. RESPIRATIONS EVEN AND UNLABORED WITH NO S/S OF ACUTE DISTRESS OR SOB NOTED. NO S/S OF PAIN AT THIS TIME. PT WITH FC AND DRAINING WELL. PT WITH LFA #22G RUNNING 1/2 NS @75ML/HR. SAFETY MEASURES IN PLACE WITH BED IN LOWEST LOCKED POSITION WITH SIDE RAILS UP X2. CALL LIGHT WITHIN REACH. WILL CONTINUE TO MONITOR.
--- NOTE | 2019-01-16 19:20 | NUR ---
MS RN CLOSINGNOTES PATIENT IN BED, ALERT AND AWAKE, CONFUSED. PATIENT WITH EPISODES OF CRYING AND EPISODES OF YELLING DURING CARE. ON O2 3L/MIN VIA NC MINAL WELL. HOB. NO SOB. ON TELE MONITORING WITH SR: 75. NO EVIDENCE OF PAIN AT THIS TIME. LEFT FA G#22. ON 07/11 NS @ 75ML/HR MINAL WELL WITHOUT S/S OF COMPLICATIONS. BED IN LOWEST POSITION. BED SIDERAILS UP X2. CALL LIGHT WITHIN REACH. NPO AT THIS.
[2019-01-16 20:00] VITALS: BP 119/51
[2019-01-17] MEDS: IV 1/2NS 1000 ML 1,000 ML IV PRN (02:17)
[2019-01-17] MEDS: MEROPENEM 500 MG in IV NS 0.9% 100 ML IV SCH ×3 (04:05→20:06)
[2019-01-17 04:53] LABS: APPEARANCE,URINE CLOUDY (CLEAR); BILIRUBIN,URINE NEGATIVE (NEGATIVE); BLOOD, URINE TRACE-INTA Ery/uL (NEGATIVE); COLOR,URINE YELLOW (YELLOW); KETONES,URINE NEGATIVE (NEGATIVE); LEUKOCYTE ESTERASE ,URINE 3+ (NEGATIVE); NITRITE, URINE NEGATIVE (NEGATIVE); PH,URINE 7.5 (5.0-8.0); PROTEIN,URINE NEGATIVE (NEGATIVE); UGLUCOSE NEGATIVE (NEGATIVE); UROBILINOGEN,URINE 0.2 EU/dL (0.2)
[2019-01-17 05:07] LABS: CREATININE, URINE 26.2 MG/DL (30.0-125.0); URINE TOTAL PROTEIN 29.1 mg/dL (0-11.9)
[2019-01-17 05:16] LABS: BACTERIA,URINE Moderate /HPF (None Seen); SQUAMOUS EPITHELIAL CELL,UR Few /HPF (None Seen); WBC,URINE TOO NUMEROUS TO COUN /HPF (0-3)
[2019-01-17 05:38] LABS: EOSINOPHIL,URINE None Seen
--- NOTE | 2019-01-17 06:39 | NUR ---
MS RN NOTES PT IN BED ASLEEP BUT EASILY AWOKEN VERBALLY OR BY TOUCH. PT A/O X0, NON-VERBAL AND CONFUSED. RESPIRATIONS EVEN AND UNLABORED WITH NO S/S OF ACUTE DISTRESS OR SOB NOTED THROUGHOUT SHIFT. NO S/S OF PAIN AT THIS TIME. PT WITH FC AND DRAINING WELL. PT WITH LFA #22G RUNNING 1/2 NS @75ML/HR. PT KEPT CLEAN, DRY, AND COMFORTABLE. PT TURNED Q2 HOURS. SAFETY MEASURES IN PLACE WITH BED IN LOWEST LOCKED POSITION WITH SIDE RAILS UP X2. CALL LIGHT WITHIN REACH. WILL ENDORSE TO ONCOMING NURSE FOR NAY.
--- NOTE | 2019-01-17 06:45 | NUR ---
WOUND CARE CONSULT WOUND CARE RECEIVED CONSULT FOR SACRAL AND ANKLE WOUNDS. WOUND CARE WILL DEFER CONSULT AND ALL TREATMENT PLANS TO PLASTIC SURGICAL TEAM INCLUDING DPM DR MONGE WHO ARE ALL FOLLOWING THIS PATIENT. PATIENT WITH DIPAK AT 12, ALL PRESSURE ULCER PREVENTION MEASURES ARE NOTED TO BE IN PLACE AT THIS TIME. WILL SEE PRN.
[2019-01-17 08:00] VITALS: BP 134/71
--- NOTE | 2019-01-17 08:00 | NUR ---
MS RN OPENING NOTES Received Patient comfortable and asleep in bed. Confused and non-verbal with no signs and symptoms of pain. Breathing even and unlabored on 3LPM via NC with no respiratory distress. Ruiz Cath in place and operational with clear yellow urine output noted. Mepilex dressing on sacrum clean, dry, and intact. Bilateral feet Mepilex dressings clean, dry, and intact and offloaded with pillows. 22g PIV on LFA clean, dry, intact and flushing well with 1/2 NS running at 45ml/hr. Safety precautions in place. Bed locked and set to lowest position with side rails x 2 up. All needs rendered at this time. Will continue to monitor.
[2019-01-17 08:55] LABS: BASOPHILS % (AUTO) 0.2 % (0.0-2.0); EOSINOPHILS % (AUTO) 1.9 % (0.0-6.0); HEMATOCRIT 33 % (33-45); HEMOGLOBIN 10.5 g/dL (11.5-14.8); LYMPHOCYTES # (AUTO) 1.5 /CMM (0.8-4.8); LYMPHOCYTES % (AUTO) 28.9 % (20.0-44.0); MEAN CORPUSCULAR HGB CONC 32 g/dl (31.0-36.0); MEAN CORPUSCULAR VOLUME 96 fL (82-100); MONOCYTES # (AUTO) 0.3 /CMM (0.1-1.30); MONOCYTES % (AUTO) 5.7 % (2.0-12.0); NEUTROPHILS # (AUTO) 3.3 /CMM (1.8-8.9); NEUTROPHILS % (AUTO) 63.3 % (43.0-81.0); PLATELET COUNT (AUTO) 129 /CMM (150-450); RED BLOOD CELL COUNT(AUTO) 3.39 MIL/uL (4.0-5.2); WHITE BLOOD COUNT (AUTO) 5.2 K/uL (4.3-11.0)
[2019-01-17] MEDS ORDERED: risperiDONE 0.25 MG TABLET PO SCH (09:00)
[2019-01-17 09:07] LABS: CALCIUM, SERUM 9.4 mg/dL (8.5-10.1); CARBON DIOXIDE 25 mmol/L (21-32); CHLORIDE 116 mmol/L (98-107); CREATININE 1.3 mg/dL (0.6-1.3); GLUCOSE 69 mg/dL (74-106); MAGNESIUM 2.1 mg/dL (1.8-2.4); PHOSPHORUS 2.4 mg/dL (2.5-4.9); SODIUM SERUM 148 mmol/L (136-145); UREA NITROGEN, BLOOD 35 mg/dL (7-18)
[2019-01-17] MEDS: DOCUSATE SODIUM 100 MG CAPSULE PO SCH ×2 (09:39→17:17)
[2019-01-17] MEDS: CALCIUM CARBONATE (1250) 500 MG TABLET PO SCH ×2 (09:43→17:17)
[2019-01-17] MEDS: CLOPIDOGREL BISULFATE 75 MG TABLET PO SCH (09:43)
[2019-01-17] MEDS: DIVALPROEX SODIUM 125 MG CAP.SPRINK PO SCH ×2 (09:43→21:23)
[2019-01-17] MEDS: CHOLECALCIFEROL 1,000 UNIT TABLET (VIT D3) PO SCH (09:43)
[2019-01-17] MEDS: HYDROGEL DRESSING 90 GM TUBE TP SCH ×2 (09:44→21:24)
[2019-01-17] MEDS ORDERED: NEUTRA PHOS 1 POWD.PACKET PO ONE (11:30)
--- NOTE | 2019-01-17 15:00 | NUR ---
MS RN NOTES Sacral Wound Debridement done by Rosie. Patient tolerated well. Will continue to monitor.
[2019-01-17 16:00] VITALS: BP 124/65
--- NOTE | 2019-01-17 19:46 | NUR ---
MS RN CLOSING NOTES Patient comfortable and asleep in bed. Confused and non-verbal with no signs and symptoms of pain. Breathing even and unlabored on 3LPM via NC with no respiratory distress. Ruiz Cath in place and operational with clear yellow urine output noted. Mepilex dressing on sacrum clean, dry, and intact. Bilateral feet Mepilex dressings clean, dry, and intact and offloaded with pillows. 22g PIV on LFA clean, dry, intact and flushing well with 1/2 NS running at 45ml/hr. Safety precautions in place. Bed locked and set to lowest position with side rails x 2 up. All needs rendered at this time. Will endorse plan of care to oncoming shift.
[2019-01-17 20:00] VITALS: BP 135/65
[2019-01-17] MEDS: risperiDONE 0.25 MG TABLET PO SCH (21:23)
[2019-01-18] MEDS: IV 1/2NS 1000 ML 1,000 ML IV PRN (00:50)
--- NOTE | 2019-01-18 01:00 | NUR ---
MS RN NOTE RECEIVED MIDSHIFT REPORT FROM LISA HESTER. PT IN STABLE CONDITION, CURRENTLY ASLEEP. NO SIGNS OF SOB OR DISTRESS, NO C/O PAIN. IV IN LFA IN PLACE WITH IVF INFUSING. CEJA PATENT WITH ADEQUATE URINE DRAINING. ALL CURRENT NEEDS MET. BED LOW, LOCKED, UPPER RAILS UP AND CALL LIGHT WITHIN REACH. WILL CONT. TO MONITOR.
--- NOTE | 2019-01-18 01:00 | NUR ---
MS RN NOTES PT SLEEPING. EASILY AROUSABLE. NOT IN ANY DISTRESS. NO SOB NOTED. NO S/X OF ANY PAIN OR DISCOMFORT AT THIS TIME. WITH IVF INFUSING WELL. MONITORED ACCORDINGLY. CALL LIGHT WITHIN REACH. BED IN LOWEST POSITION. SR UP X 3 FOR SAFETY. REPORT GIVEN TO OPAL HESTER FOR CONTINUITY OF CARE.
[2019-01-18] MEDS: MEROPENEM 500 MG in IV NS 0.9% 100 ML IV SCH ×3 (03:22→21:09)
--- NOTE | 2019-01-18 06:31 | NUR ---
MS RN NOTE PT IN STABLE CONDITION, CURRENTLY ASLEEP. NO SIGNS OF SOB OR DISTRESS, NO C/O PAIN. IV IN LFA IN PLACE WITH IVF INFUSING. CEJA PATENT WITH ADEQUATE URINE DRAINING. ALL CURRENT NEEDS MET. BED LOW, LOCKED, UPPER RAILS UP AND CALL LIGHT WITHIN REACH. WILL CONT. TO MONITOR AND ENDORSE TO NEXT SHIFT FOR NAY.
[2019-01-18 06:51] LABS: CALCIUM, SERUM 9.2 mg/dL (8.5-10.1); CARBON DIOXIDE 24 mmol/L (21-32); CHLORIDE 113 mmol/L (98-107); CREATININE 1.2 mg/dL (0.6-1.3); GLUCOSE 92 mg/dL (74-106); PHOSPHORUS 2.8 mg/dL (2.5-4.9); POTASSIUM 3.7 mmol/L (3.5-5.1); SODIUM SERUM 145 mmol/L (136-145); UREA NITROGEN, BLOOD 32 mg/dL (7-18)
--- NOTE | 2019-01-18 07:33 | NUR ---
MS RN OPENING NOTES: RECEIVED PATIENT ASLEEP IN BED, AROUSABLE. HOB ELEVATED. A/O X1. NON VERBAL. NO S/S OF PAIN NOTED AT THIS TIME. ON 02 VIA N/C @ 3LPM, TOLERATING WELL WITH NO SOB NOTED. IV ACCESS ON LFA INTACT AND PATENT, IVF INFUSING ORDERED, NO S/S OF INFILTRATIONS NOTED. CEJA IN PLACE AND ACTIVELY DRAINING CLEAR YELLOW URINE OUTPUT TO BEDSIDE URINARY BAG. SAFETY MEASURES IN PLACE. BED IN LOW LOCKED POSITION WITH SR UP X2. CALL LIGHT WITHIN REACH. WILL CONTINUE TO MONITOR.
[2019-01-18 08:00] VITALS: BP 119/73
[2019-01-18] MEDS: CHOLECALCIFEROL 1,000 UNIT TABLET (VIT D3) PO SCH (09:30)
[2019-01-18] MEDS: CALCIUM CARBONATE (1250) 500 MG TABLET PO SCH ×2 (09:30→16:34)
[2019-01-18] MEDS: DOCUSATE SODIUM 100 MG CAPSULE PO SCH ×2 (09:30→16:34)
[2019-01-18] MEDS: risperiDONE 0.25 MG TABLET PO SCH ×2 (09:30→22:18)
[2019-01-18] MEDS: CLOPIDOGREL BISULFATE 75 MG TABLET PO SCH (09:30)
[2019-01-18] MEDS: DIVALPROEX SODIUM 125 MG CAP.SPRINK PO SCH ×2 (09:30→22:18)
[2019-01-18] MEDS: HYDROGEL DRESSING 90 GM TUBE TP SCH ×2 (09:37→22:21)
--- NOTE | 2019-01-18 11:48 | NUR ---
RN NOTES PT SEEN BY KATYA ESQUIVEL WITH ORDER TO CALL [facility] MICROBIOLOGY DEPT FOR RESULTS OF URINE SENSITIVITY. CALLED [facility]CROBIOLOGY DEPT AND SPOKE TO SHIRLEY AND SAID THAT THEY'RE WORKING ON IT AND RESULTS WILL BE SEND TOMORROW. KATYA ESQUIVEL INFORMED.
[2019-01-18 16:00] VITALS: BP 126/65
--- NOTE | 2019-01-18 18:36 | NUR ---
MS RN CLOSING NOTES: PATIENT ASLEEP IN BED AT HIS TIME, AROUSABLE TO TOUCH. HOB KEPT ELEVATED. A/O X1. NON VERBAL AND MAKE GARBLED SOUNDS ON AND OFF DURING THE DAY. ON 02 VIA N/C @ 3LPM, TOLERATING WELL WITH NO SOB NOTED. IV ACCESS ON LFA INTACT AND PATENT, NO S/S OF INFILTRATIONS NOTED AT SITE. CEJA IN PLACE AND ACTIVELY DRAINING CLEAR YELLOW URINE OUTPUT TO BEDSIDE URINARY BAG, OUTPUT DURING SHIFT IS 800ML. CEJA CARE DONE. PT REPOSITIONED IN BED Q 2HRS AND PRN. KEPT CLEAN, DRY AND COMFORTABLE. ALL SAFETY MEASURES KEPT IN PLACE. BED IN LOW LOCKED POSITION WITH SR UP X2. CALL LIGHT WITHIN REACH. WILL ENDORSE TO RECRUITMENT MANAGER NURSE FOR NAY.
--- NOTE | 2019-01-18 19:45 | NUR ---
RN OPENING NOTES RECEIVED REPORT FROM DAYSHIFT MIR FARIA. FOUND Pt RESTING IN BED. NO S/S OF ACUTE DISTRESS OR SOB NOTED. SITTER AT BEDSIDE. Pt IS A/OX0-1, RESPONDS WITH GURGLING WHEN NAME IS CALLED BUT IS NON-VERBAL. CEJA CATHETER IN PLACE DRAINING WELL. SAFETY MEASURES IN PLACE. BED LOW, LOCKED, HOB ELEVATED, SIDE RAILS UP, & BED ALARM ON. WILL CONTINUE TO MONITOR Pt's CONDITION AND SAFETY THROUGHOUT THE NIGHT.
[2019-01-18 20:00] VITALS: BP 142/79
[2019-01-19] MEDS: MEROPENEM 500 MG in IV NS 0.9% 100 ML IV SCH ×3 (04:13→19:55)
[2019-01-19 06:39] LABS: BASOPHILS % (AUTO) 0.3 % (0.0-2.0); HEMATOCRIT 28 % (33-45); HEMOGLOBIN 9.5 g/dL (11.5-14.8); LYMPHOCYTES # (AUTO) 1.9 /CMM (0.8-4.8); LYMPHOCYTES % (AUTO) 36.3 % (20.0-44.0); MEAN CORPUSCULAR HGB CONC 34 g/dl (31.0-36.0); MEAN CORPUSCULAR VOLUME 94 fL (82-100); MONOCYTES # (AUTO) 0.5 /CMM (0.1-1.30); MONOCYTES % (AUTO) 8.9 % (2.0-12.0); NEUTROPHILS # (AUTO) 2.8 /CMM (1.8-8.9); NEUTROPHILS % (AUTO) 53.5 % (43.0-81.0); PLATELET COUNT (AUTO) 127 /CMM (150-450); RED BLOOD CELL COUNT(AUTO) 2.99 MIL/uL (4.0-5.2); WHITE BLOOD COUNT (AUTO) 5.3 K/uL (4.3-11.0)
--- NOTE | 2019-01-19 06:50 | NUR ---
RN CLOSING NOTES NO SIGNIFICANT CHANGES IN Pt's CONDITION. NO S/S OF ACUTE DISTRESS OR SOB NOTED DURING THE NIGHT. Pt IS ASLEEP, RESTING IN BED. RESPIRATIONS EVEN AND UNLABORED, WITH EQUAL CHEST RISE AND FALL. SAFETY MEASURES IN PLACE. SITTER AT BEDSIDE. CEJA CATH OUTPUT 250CC. WILL ENDORSE TO DAYSHIFT RN FOR Pt's NAY.
[2019-01-19 06:51] LABS: ALANINE AMINOTRANSFERASE 11 U/L (12-78); ALKALINE PHOSPHATASE 79 U/L (46-116); ASPARTATE AMINOTRANSFERASE 18 U/L (15-37); BILIRUBIN,TOTAL 0.2 mg/dL (0.2-1.0); CALCIUM, SERUM 9.1 mg/dL (8.5-10.1); CARBON DIOXIDE 29 mmol/L (21-32); CHLORIDE 113 mmol/L (98-107); CREATININE 1.3 mg/dL (0.6-1.3); GLUCOSE 87 mg/dL (74-106); PHOSPHORUS 2.2 mg/dL (2.5-4.9); SODIUM SERUM 145 mmol/L (136-145); TOTAL PROTEIN, SERUM 4.9 g/dL (6.4-8.2); UREA NITROGEN, BLOOD 27 mg/dL (7-18)
[2019-01-19 07:36] LABS: ALBUMIN 1.3 g/dL (3.4-5.0)
--- NOTE | 2019-01-19 07:46 | NUR ---
MS RN NOTES RECEIVED PATIENT IN BED RESTING COMFORTABLY. PATIENT ALERT, ORIENTED X1 CONFUSED. ON IV ACCESS ON LEFT FA #22, SL. INTACT AND PATENT. ON OXYGEN 3LPM VIA NASAL CANULA. ON CEJA CATHETER, INTACT AND PATENT. SAFETY MEASURES IN PLACE, BED IN LOW LOCKED POSITION, CALL LIGHT WITHIN REACH, WILL CONTINUE TO MONITOR ACCORDINGLY.
[2019-01-19 08:00] VITALS: BP 125/59
--- NOTE | 2019-01-19 08:32 | NUR ---
MS RN NOTES PATIENT WITH CRITICAL LOW LAB RESULT FOR ALBUMIN, 1.3. SAWYER RASMUSSEN DNP PRESENT AT UNIT AND MADE AWARE. WITH ORDER FOR DIETITIAN CONSULT/FOLLOW-UP. ORDER NOTED AND CARRIED OUT. WILL CONTINUE TO MONITOR
[2019-01-19] MEDS: risperiDONE 0.25 MG TABLET PO SCH ×2 (08:37→20:20)
[2019-01-19] MEDS: CLOPIDOGREL BISULFATE 75 MG TABLET PO SCH (08:37)
[2019-01-19] MEDS: CALCIUM CARBONATE (1250) 500 MG TABLET PO SCH ×2 (08:37→17:23)
[2019-01-19] MEDS: CHOLECALCIFEROL 1,000 UNIT TABLET (VIT D3) PO SCH (08:37)
[2019-01-19] MEDS: DOCUSATE SODIUM 100 MG CAPSULE PO SCH ×2 (08:38→17:23)
[2019-01-19] MEDS: HYDROGEL DRESSING 90 GM TUBE TP SCH ×2 (08:44→20:34)
[2019-01-19] MEDS: DIVALPROEX SODIUM 125 MG CAP.SPRINK PO SCH (08:51)
[2019-01-19] MEDS ORDERED: K PHOS NEUTRAL 250 MG TABLET PO ONE (11:30)
[2019-01-19] MEDS ORDERED: VALPROATE 1,000 MG in IV NS 0.9% 100 ML IV ONE (13:30)
[2019-01-19 16:00] VITALS: BP 108/52
[2019-01-19] MEDS ORDERED: FEE PK DOSING 1 MIN EA MC ONE (17:07)
[2019-01-19] MEDS: PROSOURCE / PROSTAT (PYXIS) 30 ML UDC PO SCH (17:23)
[2019-01-19] MEDS: VANCOMYCIN 500 MG in IV D5W 100 ML IV SCH (18:37)
--- NOTE | 2019-01-19 19:16 | NUR ---
MS RN NOTES PATIENT RESTING INSIDE ROOM. SLEEPING, EASILY AROUSABLE THROUGH VERBAL AND TACTILE STIMULI. DENIES ANY PAIN OR DISCOMFORT. CEJA CATHETER IN PLACE AND DRAINING WELL. PATIENT KEPT CLEAN, DRY AND COMFORTABLE. WILL ENDORSE TO INCOMING SHIFT FOR NAY. BED LOCKED AND IN LOW POSITION. BILATERAL UPPER SIDE RAILS UP AND LOCKED. CALL LIGHT WITHIN EASY REACH
--- NOTE | 2019-01-19 19:50 | NUR ---
RN OPENING NOTES PATIENT IS RESTING IN BED COMFORTABLY, A/O X 1, CONFUSED. SITTER AT BEDSIDE. NO SIGNS OF PAIN OR DISCOMFORT, NO FACIAL GRIMACING. CEJA CATHETER IN PLACE AND DRAINING WELL. IV SITE INTACT AND PATENT. ON O2 3LPM VIA NC. SAFETY PRECAUTIONS IMPLEMENTED; CALL LIGHT WITHIN REACH, BED LOW, BED LOCKED, SIDE RAILS UP X2. WILL CONTINUE TO MONITOR PATIENT.
[2019-01-19 20:00] VITALS: BP 136/64
--- NOTE | 2019-01-19 20:16 | NUR ---
RN NOTES MEDICATION DEPACON IV NOT IN STOCK. PHARMACY DID NOT SEND ENOUGH STOCK ON THE FLOOR.
[2019-01-19] MEDS: VALPROATE 1,000 MG in IV NS 0.9% 100 ML IV SCH (20:34)
--- NOTE | 2019-01-19 20:44 | NUR ---
RN NOTES MEDICATION- DEPACON IV WAS FOUND. ADMINISTERED ON RIGHT FOREARM IV SITE.
--- NOTE | 2019-01-19 20:45 | NUR ---
RN NOTES MEDICATION- DEPACON IV WAS NOT ADMINISTERED DUE TO NO LAB VALUE FOR VALPROIC ACID.
--- NOTE | 2019-01-19 21:17 | NUR ---
RN NOTES LABORATORY ON THE WAY FOR STAT LAB DRAW FOR VALPROIC ACID LEVELS.
--- NOTE | 2019-01-19 22:25 | NUR ---
RN NOTES VALPROIC ACID LEVEL JUST CAME IN. CURRENTLY 49. FORMULA WEIGHER, JES SOLARES NOTIFIED. ORDERS TO GIVE THE 2100 DOSE. WILL START MEDICATION NOW.
--- NOTE | 2019-01-19 22:26 | NUR ---
RN NOTES MEDICATION VALPROATE DEPACON IV INFUSED ON RIGHT FOREARM IV. INFUSING WELL, PATENT AND INTACT.
[2019-01-20] MEDS: MEROPENEM 500 MG in IV NS 0.9% 100 ML IV SCH ×3 (03:16→19:52)
--- NOTE | 2019-01-20 06:45 | NUR ---
RN CLOSING NOTES PATIENT RESTING COMFORTABLY IN BED. SLEEPING, EASILY AWAKENED THROUGH VERBAL AND TACTILE STIMULI. NO SIGNS OF RESPIRATORY DISTRESS. NO SIGNS OF SHORTNESS OF BREATH. NO SIGNS OF FACIAL GRIMACING OR DISCOMFORT TO INDICATE PAIN. CEJA CATHETER IN PLACE AND DRAINING WELL, LAST OUTPUT: 500 ML. PATIENT KEPT CLEAN DRY, AND COMFORTABLE. PATIENT TURNED Q2H. SAFETY PRECAUTIONS IMPLEMENTED; CALL LIGHT WITHIN REACH, BED LOW, BED LOCKED, SIDE RAILS UP. WILL ENDORSE TO AM RN FOR CONTINUITY OF CARE.
[2019-01-20 07:07] LABS: CALCIUM, SERUM 8.5 mg/dL (8.5-10.1); CARBON DIOXIDE 25 mmol/L (21-32); CHLORIDE 111 mmol/L (98-107); CREATININE 1.1 mg/dL (0.6-1.3); GLUCOSE 114 mg/dL (74-106); POTASSIUM 3.4 mmol/L (3.5-5.1); SODIUM SERUM 144 mmol/L (136-145); UREA NITROGEN, BLOOD 24 mg/dL (7-18)
[2019-01-20 07:25] LABS: THYROID STIMULATING HORMONE 3.164 uIU/mL (0.358-3.74)
--- NOTE | 2019-01-20 07:25 | NUR ---
MS RN NOTES PATIENT RECEIVED RESTING INSIDE ROOM, SLEEPING, EASILY AROUSABLE THROUGH VERBAL AND TACTILE STIMULI. PATIENT NON-VERBAL, OPENS EYES TO STIMULI, NOTED WITH EPISODES OF SCREAMING. NO ACUTE DISTRESS NOTED. CEJA CATHETER IN PLACE WITH CLEAR YELLOW URINE OUTPUT NOTED ON COLLECTING CANISTER. PATIENT KEPT CLEAN, DRY AND COMFORTABLE. CONTINUE WITH CALORIE COUNT. WILL CONTINUE TO MONITOR. BED LOCKED AND IN LOW POSITION. BILATERAL UPPER SIDE RAILS UP AND LOCKED. CALL LIGHT WITHIN EASY REACH
[2019-01-20] MEDS: DOCUSATE SODIUM 100 MG CAPSULE PO SCH ×2 (08:24→16:45)
[2019-01-20] MEDS: CALCIUM CARBONATE (1250) 500 MG TABLET PO SCH ×2 (08:24→16:45)
[2019-01-20] MEDS: risperiDONE 0.25 MG TABLET PO SCH ×2 (08:24→20:57)
[2019-01-20] MEDS: CHOLECALCIFEROL 1,000 UNIT TABLET (VIT D3) PO SCH (08:24)
[2019-01-20] MEDS: PROSOURCE / PROSTAT (PYXIS) 30 ML UDC PO SCH ×2 (08:24→16:46)
[2019-01-20] MEDS: CLOPIDOGREL BISULFATE 75 MG TABLET PO SCH (08:24)
[2019-01-20] MEDS: HYDROGEL DRESSING 90 GM TUBE TP SCH ×2 (08:26→21:06)
[2019-01-20] MEDS: VALPROATE 1,000 MG in IV NS 0.9% 100 ML IV SCH ×2 (08:39→21:23)
[2019-01-20] MEDS ORDERED: POTASSIUM CHLORIDE 20 MEQ TAB.PRT.SR PO SCH (12:00)
[2019-01-20] MEDS: VANCOMYCIN 500 MG in IV D5W 100 ML IV SCH (12:18)
[2019-01-20] MEDS: LACTOBACILLUS RHAMNOSUS GG 1 EACH CAP.SPRINK PO SCH (16:45)
--- NOTE | 2019-01-20 18:43 | NUR ---
MS RN CLOSING NOTES PATIENT RESTING COMFORTABLY IN BED. SLEEPING, EASILY AWAKENED THROUGH VERBAL AND TACTILE STIMULI. NO SIGNS OF RESPIRATORY DISTRESS. NO SIGNS OF SHORTNESS OF BREATH. NO SIGNS OF FACIAL GRIMACING OR DISCOMFORT TO INDICATE PAIN. IV ACCESS ON LFA #22, SL. PATENT AND INTACT. CEJA CATHETER IN PLACE AND DRAINING WELL, LAST OUTPUT: 300 ML. PATIENT KEPT CLEAN DRY, AND COMFORTABLE. SAFETY PRECAUTIONS IMPLEMENTED; CALL LIGHT WITHIN REACH, BED LOW, BED LOCKED, SIDE RAILS UP. WILL ENDORSE TO FINGERPRINT EXPERT NURSE FOR CONTINUITY OF CARE.
[2019-01-20 20:22] VITALS: BP 144/79
--- NOTE | 2019-01-20 21:22 | NUR ---
RN NOTES PER CHARGE NURSEJAME, ADMINISTER VALPROATE FOR 2100. LAST LAB VALUE FOR VALPROIC ACID WAS 16 IN THE AM. CHARGE NURSE AWARE TO ADMINISTER.
--- NOTE | 2019-01-20 21:23 | NUR ---
RN NOTES DEPACON (VALPROATE) WAS ADMINISTERED ON RIGHT FOREARM IV SITE, NOT LEFT FOREARM.
[2019-01-21] MEDS: MEROPENEM 500 MG in IV NS 0.9% 100 ML IV SCH ×3 (03:50→20:15)
[2019-01-21 06:35] LABS: CALCIUM, SERUM 8.8 mg/dL (8.5-10.1); CARBON DIOXIDE 27 mmol/L (21-32); CHLORIDE 110 mmol/L (98-107); CREATININE 0.9 mg/dL (0.6-1.3); GLUCOSE 81 mg/dL (74-106); POTASSIUM 3.9 mmol/L (3.5-5.1); SODIUM SERUM 142 mmol/L (136-145); UREA NITROGEN, BLOOD 26 mg/dL (7-18)
--- NOTE | 2019-01-21 06:44 | NUR ---
RN NOTES NO VANCO TROUGH RESULTED YET. WITHHELD VANCOMYCIN FOR 0600 AT THIS TIME. CHARGE NURSE JAME CUELLO. WILL ENDORSE TO AM MIR.
--- NOTE | 2019-01-21 06:45 | NUR ---
RN CLOSING NOTES PATIENT RESTING COMFORTABLY IN BED. PATIENT ASLEEP, EASILY AWAKENED THROUGH VERBAL AND TACTILE STIMULI. NO SIGNS OF RESPIRATORY DISTRESS. NO SIGNS OF SHORTNESS OF BREATH. IV ACCESS #22, SL, INTACT AND PATENT. NO SIGNS OF FACIAL GRIMACING OR DISCOMFORT TO INDICATE ANY PAIN. CEJA CATHETER IN PLACE DRAINING CLEAR YELLOW, LAST URINE OUTPUT: 300 ML. PATIENT KEPT CLEAN, DRY, AND COMFORTABLY. PATIENT TURNED EVERY 2 HOURS. SAFETY PRECAUTIONS IMPLEMENTED; CALL LIGHT WITHIN REACH, BED LOW, BED LOCKED, SIDE RAILS UP X2. WILL ENDORSE TO AM RN FOR CONTINUITY OF CARE.
[2019-01-21] MEDS: VANCOMYCIN 500 MG in IV D5W 100 ML IV SCH (07:02)
--- NOTE | 2019-01-21 07:11 | NUR ---
RN NOTES VANCO ADMINISTERED. VANCO TROUGH RESULTED.
[2019-01-21 08:00] VITALS: BP 137/79
[2019-01-21] MEDS: PROSOURCE / PROSTAT (PYXIS) 30 ML UDC PO SCH ×2 (08:45→16:46)
[2019-01-21] MEDS: risperiDONE 0.25 MG TABLET PO SCH ×2 (08:45→21:37)
[2019-01-21] MEDS: LACTOBACILLUS RHAMNOSUS GG 1 EACH CAP.SPRINK PO SCH ×2 (08:45→16:46)
[2019-01-21] MEDS: DOCUSATE SODIUM 100 MG CAPSULE PO SCH ×2 (08:45→16:45)
[2019-01-21] MEDS: CALCIUM CARBONATE (1250) 500 MG TABLET PO SCH ×2 (08:45→16:49)
[2019-01-21] MEDS: CHOLECALCIFEROL 1,000 UNIT TABLET (VIT D3) PO SCH (08:45)
[2019-01-21] MEDS: CLOPIDOGREL BISULFATE 75 MG TABLET PO SCH (08:45)
[2019-01-21] MEDS: HYDROGEL DRESSING 90 GM TUBE TP SCH ×2 (08:46→21:38)
[2019-01-21] MEDS: VALPROATE 1,000 MG in IV NS 0.9% 100 ML IV SCH ×2 (08:59→20:09)
--- NOTE | 2019-01-21 13:04 | NUR ---
MS RN NOTES CALLED ROMAIN MARTINEZ (DAUGHTER, DPOA) NO ANSWER, LEFT A MESSAGE. AWAITING FOR CALL BACK. WILL FOLLOW UP.
--- NOTE | 2019-01-21 13:38 | NUR ---
MS RN NOTES PATIENT SEEN AND EXAMINED BY DAYSI HERNANDEZ, WITH NEW PLAN FOR SERIAL WOUND DEBRIDEMENT OF SACRUM. VERIFIED INFORMED TELEPHONE CONSENT OBTAINED BY MD FROM ROMAIN MARTINEZ, DAUGHTER ([phone]), AND VERIFIED WITH 2 LICENSED STAFF. WILL CONTINUE TO MONITOR
[2019-01-21 16:00] VITALS: BP 137/73
[2019-01-21] MEDS: MEGESTROL ACETATE SUSP 400 MG/10 ML UDC PO SCH (16:46)
--- NOTE | 2019-01-21 17:50 | NUR ---
MS RN NOTES PATIENT NOTED WITH SCANT BLEEDING ON LOWER LIP, ORAL CARE DONE, NOTED PATIENT WITH 0.5 X 0.3 ABRASION ON LOWER LIP. SITE CLEANED AND DRIED. APPLIED LIP BALM ON PATIENT. DAYSI HERNANDEZ PRESENT AT UNIT MADE AWARE. WILL CONTINUE TO MONITOR
--- NOTE | 2019-01-21 18:15 | NUR ---
MS RN NOTES PATIENT SEEN AND EXAMINED BY DAYSI HERNANDEZ. WOUND DEBRIDEMENT DONE ON SACRUM AREA, PATIENT TOLERATED PROCEDURE WELL. WILL CONTINUE TO MONITOR
--- NOTE | 2019-01-21 19:22 | NUR ---
MS RN NOTES PATIENT RESTING INSIDE ROOM. SLEEPING, AROUSABLE THROUGH VERBAL AND TACTILE STIMULI. PATIENT NON-VERBAL. NOTED WITH EPISODES OF SCREAMING. NO ACUTE DISTRESS. CEJA CATHETER IN PLACE WITH CLEAR YELLOW URINE OUTPUT ON COLLECTING CANISTER. PATIENT KEPT CLEAN, DRY AND COMFORTABLE. ENDORSED TO INCOMING SHIFT FOR NAY. BED LOCKED AND IN LOW POSITION. BILATERAL UPPER SIDE RAILS UP AND LOCKED. CALL LIGHT WITHIN EASY REACH
--- NOTE | 2019-01-21 19:59 | NUR ---
MS RN NOTES RECEIVED AWAKE AND CALM IN BED WITH NO DISTRESS NOTED. CALL LIGHT WITHIN REACH. NO FACIAL GRIMACING OR GROANING TO INDICATE PAIN OR DISCOMFORT. PERIPHERAL LINES INTACT AND PATENT. FC INTACT AND PATENT. BED IN LOW LOCK SETTING. BED ALARM ON AND FUNCTIONING PROPERLY. ROOM FREE OF CLUTTER AND BELONGINGS KEPT NEAR BEDSIDE. WILL CONTINUE TO MONITOR.
[2019-01-21 20:12] VITALS: BP 113/65
[2019-01-21] MEDS: NEOMY SULF/BACITRAC ZN/POLY 15 GM TUBE TP SCH (20:24)
[2019-01-22] MEDS: VANCOMYCIN 500 MG in IV D5W 100 ML IV SCH ×2 (00:08→17:44)
[2019-01-22] MEDS: MEROPENEM 500 MG in IV NS 0.9% 100 ML IV SCH ×3 (04:34→20:21)
[2019-01-22 06:40] LABS: CALCIUM, SERUM 9.5 mg/dL (8.5-10.1); CARBON DIOXIDE 27 mmol/L (21-32); CHLORIDE 110 mmol/L (98-107); CREATININE 0.8 mg/dL (0.6-1.3); GLUCOSE 86 mg/dL (74-106); POTASSIUM 3.5 mmol/L (3.5-5.1); SODIUM SERUM 143 mmol/L (136-145); UREA NITROGEN, BLOOD 26 mg/dL (7-18)
--- NOTE | 2019-01-22 06:51 | NUR ---
MS RN NOTES PATIENT ASLEEP IN BED WITH NO DISTRESS NOTED. CALL LIGHT WITHIN REACH. NO C/O PAIN OR DISCOMFORT. ALL DUE MEDS GIVEN ORDERED WITH NO ASE. PERIPHERAL LINE INTACT AND PATENT. BED IN LOW LOCK SETTING. ALL BELONGINGS KEPT NEAR BEDSIDE. WILL CONTINUE TO MONITOR.
--- NOTE | 2019-01-22 07:30 | NUR ---
MS RN OPENING NOTES RECEIVED REPORT FROM PM NURSE.AWAKE. PATIENT NON-VERBAL, OPENS EYES TO STIMULI, NOTED WITH EPISODES OF SCREAMING. NO ACUTE DISTRESS NOTED. CEJA CATHETER IN PLACE WITH CLEAR YELLOW URINE . CONTINUE WITH CALORIE COUNT. BED LOCKED AND IN LOW POSITION. SIDE RAILS X3.. CALL LIGHT WITHIN EASY REACH.WILL CONTINUE TO MONITOR.
[2019-01-22 08:00] VITALS: BP 132/62
[2019-01-22] MEDS: CALCIUM CARBONATE (1250) 500 MG TABLET PO SCH ×2 (09:08→17:19)
[2019-01-22] MEDS: CHOLECALCIFEROL 1,000 UNIT TABLET (VIT D3) PO SCH (09:08)
[2019-01-22] MEDS: DOCUSATE SODIUM 100 MG CAPSULE PO SCH ×2 (09:08→17:19)
[2019-01-22] MEDS: LACTOBACILLUS RHAMNOSUS GG 1 EACH CAP.SPRINK PO SCH ×2 (09:08→17:19)
[2019-01-22] MEDS: MEGESTROL ACETATE SUSP 400 MG/10 ML UDC PO SCH ×2 (09:08→17:19)
[2019-01-22] MEDS: CLOPIDOGREL BISULFATE 75 MG TABLET PO SCH (09:08)
[2019-01-22] MEDS: risperiDONE 0.25 MG TABLET PO SCH ×2 (09:08→21:24)
[2019-01-22] MEDS: ACETAMINOPHEN 325 MG TABLET PO PRN ×2 (09:08→17:19)
[2019-01-22] MEDS: NEOMY SULF/BACITRAC ZN/POLY 15 GM TUBE TP SCH (09:12)
[2019-01-22] MEDS: HYDROGEL DRESSING 90 GM TUBE TP SCH ×2 (09:12→21:24)
[2019-01-22] MEDS: VALPROATE 1,000 MG in IV NS 0.9% 100 ML IV SCH ×2 (09:24→21:20)
[2019-01-22] MEDS: PROSOURCE / PROSTAT (PYXIS) 30 ML UDC PO SCH ×2 (09:25→17:19)
[2019-01-22 16:00] VITALS: BP 122/75
[2019-01-22 16:08] VITALS: BP 122/75
[2019-01-22] MEDS ORDERED: VALPROATE 1,000 MG in IV NS 0.9% 100 ML IV ONE (17:00)
--- NOTE | 2019-01-22 18:58 | NUR ---
MS RN CLOSING NOTES PATIENT IN BED.AWAKE. PATIENT NON-VERBAL, OPENS EYES TO STIMULI,NO ACUTE DISTRESS NOTED. CEJA CATHETER IN PLACE WITH CLEAR YELLOW URINE . CONTINUE WITH CALORIE COUNT. BED LOCKED AND IN LOW POSITION. SIDE RAILS X3.. CALL LIGHT WITHIN EASY REACH.CALL MADE TO REGARDING DEPACON ORDER TO CLARIFY.HE SAID THAT HE WILL CALL ME BACK FOR ORDERS.WILL ENDORSE TO PM NURSE FOR NAY.
[2019-01-22 20:00] VITALS: BP 115/56
--- NOTE | 2019-01-22 20:00 | NUR ---
MS RN NOTES RECEIVED PATIENT AWAKE AND CALM IN BED WITH NO DISTRESS NOTED. NO FACIAL GRIMACING OR GROANING TO INDICATE PAIN OR DISCOMFORT. RIGHT ARM PERIPHERAL LINE LEAKING AND REPLACED WITH RFA #20 GAUGE AND TOLERATED WELL. NO ACTIVE BLEEDING NOTED. FC INTACT AND PATENT. BED IN LOW LOCK SETTING. BED ALARM ON AND FUNCTIONING PROPERLY. ALL BELONGINGS KEPT NEAR BEDSIDE. WILL CONTINUE TO MONITOR.
[2019-01-22] MEDS: LORAZEPAM 1 MG TABLET PO PRN (22:37)
[2019-01-23 07:38] LABS: BASOPHILS % (AUTO) 0.4 % (0.0-2.0); EOSINOPHILS % (AUTO) 2.4 % (0.0-6.0); HEMATOCRIT 31 % (33-45); HEMOGLOBIN 10.1 g/dL (11.5-14.8); LYMPHOCYTES # (AUTO) 2.2 /CMM (0.8-4.8); LYMPHOCYTES % (AUTO) 40.6 % (20.0-44.0); MEAN CORPUSCULAR HGB CONC 33 g/dl (31.0-36.0); MEAN CORPUSCULAR VOLUME 94 fL (82-100); MONOCYTES # (AUTO) 0.5 /CMM (0.1-1.30); MONOCYTES % (AUTO) 8.3 % (2.0-12.0); NEUTROPHILS # (AUTO) 2.6 /CMM (1.8-8.9); NEUTROPHILS % (AUTO) 48.3 % (43.0-81.0); PLATELET COUNT (AUTO) 107 /CMM (150-450); RED BLOOD CELL COUNT(AUTO) 3.25 MIL/uL (4.0-5.2); WHITE BLOOD COUNT (AUTO) 5.5 K/uL (4.3-11.0)
--- NOTE | 2019-01-23 07:43 | NUR ---
MS RN NOTES PATIENT ASLEEP IN BED WITH NO DISTRESS NOTED. CALL LIGHT WITHIN REACH. NO FACIAL GRIMACING OR GROANING TO INDICATE PAIN OR DISCOMFORT. ALL DUE MEDS GIVEN ORDERED WITH NO ASE NOTED. PERIPHERAL LINES INTACT AND PATENT. FC REMAINS INTACT AND PATENT. BED IN LOW LOCK SETTING. BED ALARM ON AND FUNCTIONING PROPERLY. ALL BELONGINGS KEPT NEAR BEDSIDE. WILL ENDORSE TO ONCOMING SHIFT.
[2019-01-23 07:45] LABS: VALPROIC ACID 12 ug/mL (50-100)
[2019-01-23 07:47] LABS: CALCIUM, SERUM 9.7 mg/dL (8.5-10.1); CARBON DIOXIDE 28 mmol/L (21-32); CHLORIDE 111 mmol/L (98-107); CREATININE 0.8 mg/dL (0.6-1.3); GLUCOSE 83 mg/dL (74-106); PHOSPHORUS 2.3 mg/dL (2.5-4.9); SODIUM SERUM 146 mmol/L (136-145); UREA NITROGEN, BLOOD 21 mg/dL (7-18)
[2019-01-23 08:00] VITALS: BP 135/63
[2019-01-23] MEDS: PROSOURCE / PROSTAT (PYXIS) 30 ML UDC PO SCH ×2 (09:00→17:00)
[2019-01-23] MEDS: VALPROATE 1,000 MG in IV NS 0.9% 100 ML IV SCH ×2 (10:37→21:25)
[2019-01-23] MEDS: CHOLECALCIFEROL 1,000 UNIT TABLET (VIT D3) PO SCH (10:37)
[2019-01-23] MEDS: risperiDONE 0.25 MG TABLET PO SCH ×2 (10:37→21:23)
[2019-01-23] MEDS: CALCIUM CARBONATE (1250) 500 MG TABLET PO SCH ×2 (10:38→18:13)
[2019-01-23] MEDS: DOCUSATE SODIUM 100 MG CAPSULE PO SCH ×2 (10:38→18:13)
[2019-01-23] MEDS: LACTOBACILLUS RHAMNOSUS GG 1 EACH CAP.SPRINK PO SCH ×2 (10:38→18:13)
[2019-01-23] MEDS: CLOPIDOGREL BISULFATE 75 MG TABLET PO SCH (10:38)
[2019-01-23] MEDS: MEGESTROL ACETATE SUSP 400 MG/10 ML UDC PO SCH ×2 (10:38→18:13)
[2019-01-23] MEDS: NEOMY SULF/BACITRAC ZN/POLY 15 GM TUBE TP SCH (10:39)
[2019-01-23] MEDS: HYDROGEL DRESSING 90 GM TUBE TP SCH ×2 (10:39→21:23)
[2019-01-23] MEDS ORDERED: K PHOS NEUTRAL 250 MG TABLET PO ONE (12:00)
[2019-01-23] MEDS: VANCOMYCIN 500 MG in IV D5W 100 ML IV SCH (13:23)
[2019-01-23 16:00] VITALS: BP 148/66
--- NOTE | 2019-01-23 19:30 | NUR ---
RECEIVED PATIENT IN BED AWAKE. CONFUSED. UNINTELLIGIBLE SPEECH. NO ACUTE DISTRESS NOTED. NO SIGNS OF PAIN NOTED. IV SITE PATENT, INTACT; FLUSHED. CEJA CATH PATENT, INTACT; DRAINING CLEAR YELLOW URINE. SAFETY REMINDERS GIVEN. ON LOW BED WITH BILATERAL UPPER SIDE RAILS UP. CALL [place]IA WITHIN EASY REACH. WILL CONTINUE TO MONITOR.
[2019-01-23 20:00] VITALS: BP 134/62
[2019-01-24] MEDS: LORAZEPAM 1 MG TABLET PO PRN (05:05)
[2019-01-24] MEDS: VANCOMYCIN 500 MG in IV D5W 100 ML IV SCH (05:56)
--- NOTE | 2019-01-24 06:30 | NUR ---
PATIENT ASLEEP, EASILY AROUSABLE. RESPIRATIONS EVEN. NO SIGNS OF PAIN NOTED. DUE MEDS GIVEN WITH NO ASE NOTED. NEEDS ATTENDED. KEPT CLEAN, DRY, AND COMFORTABLE. SAFETY PRECAUTIONS AND COMFORT MEASURES IN PLACE. WILL GIVE REPORT TO TO DAY SHIFT FOR CONTINUITY OF CARE.
[2019-01-24 07:06] LABS: CARBON DIOXIDE 29 mmol/L (21-32); CHLORIDE 111 mmol/L (98-107); CREATININE 0.8 mg/dL (0.6-1.3); GLUCOSE 82 mg/dL (74-106); PHOSPHORUS 2.3 mg/dL (2.5-4.9); POTASSIUM 3.7 mmol/L (3.5-5.1); SODIUM SERUM 146 mmol/L (136-145); UREA NITROGEN, BLOOD 20 mg/dL (7-18)
--- NOTE | 2019-01-24 07:30 | NUR ---
RN OPENING NOTES RECEIVED PATIENT IN BED ASLEEP, EASILY AROUSABLE. CONFUSED. UNINTELLIGIBLE SPEECH. NO ACUTE DISTRESS NOTED. NO SIGNS OF PAIN OR DISCOMFORT NOTED. IV SITE INTACT AND PATENT. CEJA CATH IN PLACE, DRAINING CLEAR YELLOW URINE. SAFETY MEASURES IN PLACE. ON LOW/LOCKED BED WITH SIDE RAILS UPX2. CALL LIGHT WITHIN EASY REACH. BED ALARM ON, WILL CONTINUE TO MONITOR ACCORDINGLY.
[2019-01-24 08:00] VITALS: BP 136/74
[2019-01-24] MEDS: VALPROATE 1,000 MG in IV NS 0.9% 100 ML IV SCH (09:26)
[2019-01-24] MEDS: MEGESTROL ACETATE SUSP 400 MG/10 ML UDC PO SCH (09:33)
[2019-01-24] MEDS: DOCUSATE SODIUM 100 MG CAPSULE PO SCH (09:33)
[2019-01-24] MEDS: CLOPIDOGREL BISULFATE 75 MG TABLET PO SCH (09:33)
[2019-01-24] MEDS: risperiDONE 0.25 MG TABLET PO SCH (09:33)
[2019-01-24] MEDS: CHOLECALCIFEROL 1,000 UNIT TABLET (VIT D3) PO SCH (09:34)
[2019-01-24] MEDS: CALCIUM CARBONATE (1250) 500 MG TABLET PO SCH (09:34)
[2019-01-24] MEDS: LACTOBACILLUS RHAMNOSUS GG 1 EACH CAP.SPRINK PO SCH (09:34)
[2019-01-24] MEDS: NEOMY SULF/BACITRAC ZN/POLY 15 GM TUBE TP SCH (09:45)
[2019-01-24] MEDS: HYDROGEL DRESSING 90 GM TUBE TP SCH (09:45)
[2019-01-24] MEDS: PROSOURCE / PROSTAT (PYXIS) 30 ML UDC PO SCH (11:06)
[2019-01-24] MEDS ORDERED: NEUTRA PHOS 1 POWD.PACKET NG ONE (11:30)
[2019-01-24] MEDS: ACETAMINOPHEN 325 MG TABLET PO PRN (12:31)
[2019-01-24] MEDS ORDERED: RXVAN XX (15:41)
[2019-01-24] MEDS ORDERED: MEGE400O4 PO (15:51)
--- NOTE | 2019-01-24 17:05 | NUR ---
DISCHARGED PATIENT IN STABLE CONDITION PICKED UP BY AMBULANCE CREW. DISCHARGED PAPERWORK GIVEN TO GAS [employer] POWERPLANT MECHANIC HELPER. NO BELONGINGS NOTED. REPORT GIVEN TO JAMA FROM [facility], DC INSTRUCTIONS GIVEN, VERBALIZED UNDERSTANDING. IV ACCESS REMOVED, APPLIED PRESSURE, NO BLEEDING. NAME BAND REMOVED. SKIN PHOTO TAKEN PLACED IN CHART.
[2019-01-24] MEDS ORDERED: VALPROATE 1,000 MG in IV NS 0.9% 100 ML IV SCH (21:00)
== END 2019-01-24 17:00 | DRG 853 ==
LOC: ER 22:20 → MEDSG2 01-16 01:51 → UNDOADMIN 01-16 01:51 → MED 01-16 02:10 → TELE 01-16 02:19 → MED 01-16 09:03
PROVIDERS: ADMIT Registered Nurse; ATTEND Hospitalist
PROC: 0JB70ZZ Excision of Back Subcutaneous Tissue and Fascia, Open Approach (ICD-10-PCS; principal; 2019-01-17)
PROC: 0JB70ZZ Excision of Back Subcutaneous Tissue and Fascia, Open Approach (ICD-10-PCS; 2019-01-21)
DX: A41.9 Sepsis, unspecified organism (principal); L89.153 Pressure ulcer of sacral region, stage 3; E43 Unspecified severe protein-calorie malnutrition; G92 Toxic encephalopathy; R53.2 Functional quadriplegia; E87.0 Hyperosmolality and hypernatremia; N39.0 Urinary tract infection, site not specified; N17.9 Acute kidney failure, unspecified; Z68.1 Body mass index [BMI] 19.9 or less, adult; R64 Cachexia; F32.9 Major depressive disorder, single episode, unspecified; F41.9 Anxiety disorder, unspecified; I25.10 Atherosclerotic heart disease of native coronary artery without angina pectoris; D63.1 Anemia in chronic kidney disease; E86.0 Dehydration; I12.9 Hypertensive chronic kidney disease with stage 1 through stage 4 chronic kidney disease, or unspecified chronic kidney disease; N18.9 Chronic kidney disease, unspecified; E86.1 Hypovolemia; Z86.73 Personal history of transient ischemic attack (TIA), and cerebral infarction without residual deficits; Z87.440 Personal history of urinary (tract) infections; E87.6 Hypokalemia; G40.909 Epilepsy, unspecified, not intractable, without status epilepticus; F03.90 Unspecified dementia, unspecified severity, without behavioral disturbance, psychotic disturbance, mood disturbance, and anxiety; E88.09 Other disorders of plasma-protein metabolism, not elsewhere classified; R62.7 Adult failure to thrive; S40.022A Contusion of left upper arm, initial encounter; S40.021A Contusion of right upper arm, initial encounter; X58.XXXA Exposure to other specified factors, initial encounter; Y93.9 Activity, unspecified; Y92.129 Unspecified place in nursing home as the place of occurrence of the external cause; L89.520 Pressure ulcer of left ankle, unstageable; L89.510 Pressure ulcer of right ankle, unstageable; Z88.0 Allergy status to penicillin; Z88.2 Allergy status to sulfonamides; F29 Unspecified psychosis not due to a substance or known physiological condition; B96.20 Unspecified Escherichia coli [E. coli] as the cause of diseases classified elsewhere; B96.89 Other specified bacterial agents as the cause of diseases classified elsewhere; G31.9 Degenerative disease of nervous system, unspecified; I73.9 Peripheral vascular disease, unspecified; Z86.61 Personal history of infections of the central nervous system
CPT/HCPCS: 36415; 70450-TC; 71045-TC; 76770-TC; 80048-TC; 80053-TC; 80164-TC; 80202-TC; 81000-TC; 82570-TC; 83605-TC; 83735-TC; 84100-TC; 84155-TC; 84300-TC; 84443-TC; 84484-TC; 85025-TC; 87040-TC; 87081-TC; 87086-TC; 87186-TC; 92526; 92611-TC; 94799-TC; 97112-TC; 97530-TC; A4216; A6248; G0378; J2185; J3370; J3490; J7030; J7050; J7060

== ENCOUNTER 2019-02-20 13:22 | Inpatient (IN) | payer MEDICARE, OTHER ==
[~2019-02-20] VITALS: Ht 154.9 cm; Wt 36.3 kg
[~2019-02-20 13:22] MED LIST changes: +MEGE400O4 PO; +RXVAN XX
[2019-02-20] MEDS ORDERED: VANCOMYCIN 0.75 GM in IV NS 0.9% 250 ML IV STA (13:28)
[2019-02-20] MEDS ORDERED: CEFEPIME 1 GM in IV D5W 50 ML IV STA (13:28)
[2019-02-20] MEDS ORDERED: ACETAMINOPHEN 650 MG/SUPP.RECT RC ONE ×2 (13:30→13:37)
[2019-02-20] MEDS ORDERED: IV NS 0.9% 1,000 ML BAG IV ONE (13:30)
[2019-02-20 13:43] LABS: BASOPHILS # (AUTO) 0.1 /CMM (0.0-0.2); BASOPHILS % (AUTO) 0.6 % (0.0-2.0); HEMATOCRIT 35 % (33-45); HEMOGLOBIN 11.5 g/dL (11.5-14.8); LYMPHOCYTES # (AUTO) 1.7 /CMM (0.8-4.8); LYMPHOCYTES % (AUTO) 10.2 % (20.0-44.0); MEAN CORPUSCULAR HGB CONC 33 g/dl (31.0-36.0); MEAN CORPUSCULAR VOLUME 94 fL (82-100); MONOCYTES # (AUTO) 2.1 /CMM (0.1-1.30); MONOCYTES % (AUTO) 12.7 % (2.0-12.0); NEUTROPHILS # (AUTO) 12.5 /CMM (1.8-8.9); NEUTROPHILS % (AUTO) 76.5 % (43.0-81.0); PLATELET COUNT (AUTO) 147 /CMM (150-450); RED BLOOD CELL COUNT(AUTO) 3.76 MIL/uL (4.0-5.2); WHITE BLOOD COUNT (AUTO) 16.3 K/uL (4.3-11.0)
[2019-02-20 13:49] LABS: CALCIUM, SERUM 10.9 mg/dL (8.5-10.1); CARBON DIOXIDE 30 mmol/L (21-32); CHLORIDE 116 mmol/L (98-107); CREATININE 1.5 mg/dL (0.6-1.3); GLUCOSE 129 mg/dL (74-106); POTASSIUM 3.8 mmol/L (3.5-5.1); SODIUM SERUM 154 mmol/L (136-145); UREA NITROGEN, BLOOD 42 mg/dL (7-18)
--- NOTE | 2019-02-20 14:00 | NUR ---
[id number] SNF FOR O2 DESATURATION. PT NON VERBAL, EYES OPEN. O2 SAT 84%RA. PLACED ON NONREBREATHER 96% 15L. SEEN & EVAL'D BY DR. RENE. PLACED ON HAND EXPANSION ENVELOPE MAKER, ST NO ECTOPY NOTED. SKIN PINK WARM & DRY. MEDICATED ORDERED & WILL CONT TO MONITOR.
[2019-02-20] MEDS ORDERED: MULT-213 PO (14:12)
[2019-02-20 14:13] LABS: ABG PCO2 38.5 mmHg (35.0-45.0); ABG PO2 73.4 mmHg (75.0-100.0); AaDO2 601.1 mmHg; COHb 0.1 % (0.5-1.5); MetHb 0.6 % (0.0-1.5); O2Hb 92.3 % (94.0-97.0); SITE, ABG Right Radial; VENT MODE, BG NON REBREATHER
[2019-02-20] MEDS ORDERED: ASCO500T9 PO (14:28)
[2019-02-20] MEDS ORDERED: CRAN450C PO (14:28)
[2019-02-20] MEDS ORDERED: CLOP75TA15 PO (14:28)
[2019-02-20] MEDS ORDERED: ACET325T53 PO (14:28)
[2019-02-20] MEDS ORDERED: AMIN30LI27 PO (14:28)
[2019-02-20 14:31] LABS: BILIRUBIN,URINE SMALL (NEGATIVE); BLOOD, URINE Moderate Ery/uL (NEGATIVE); COLOR,URINE Yellow (YELLOW); KETONES,URINE Trace (NEGATIVE); LEUKOCYTE ESTERASE ,URINE Moderate (NEGATIVE); NITRITE, URINE Negative (NEGATIVE); PH,URINE 5.5 (5.0-8.0); PROTEIN,URINE 100 mg/dl (NEGATIVE); UGLUCOSE Negative (NEGATIVE); UROBILINOGEN,URINE 0.2 EU/dL (0.2)
[2019-02-20] MEDS ORDERED: ZINC220C6 PO (14:31)
[2019-02-20 14:34] LABS: APPEARANCE,URINE SLIGHTLY CLOUDY (CLEAR)
[2019-02-20 14:36] LABS: BACTERIA,URINE 2+ /HPF (None Seen); SQUAMOUS EPITHELIAL CELL,UR Few /HPF (None Seen)
--- NOTE | 2019-02-20 15:19 | NUR ---
REPORT GIVEN TO MIR AGUILAR FOR NAY
[2019-02-20] MEDS ORDERED: BISACODYL SUPP (10 MG) 10 MG/SUPP.RECT SUPP.RECT RC PRN (15:30)
[2019-02-20] MEDS ORDERED: ONDANSETRON HCL/PF 4 MG/2 ML VIAL IVP PRN (15:30)
[2019-02-20] MEDS ORDERED: MAGNESIUM HYDROXIDE 30 ML UDC PO PRN (15:30)
[2019-02-20] MEDS ORDERED: TEMAZEPAM 15 MG CAPSULE PO PRN (15:30)
[2019-02-20] MEDS ORDERED: MAG HYDROX/AL HYDROX/SIMETH 30 ML UDC PO PRN (15:30)
[2019-02-20] MEDS ORDERED: NA PHOS,M-B/NA PHOS,DI-BA 1 EA ENEMA RC PRN (15:30)
--- NOTE | 2019-02-20 15:30 | NUR ---
QUALITY ASSURANCE TEST PROGRAM MANAGER NOTE PATIENT ADMITTED FROM EMERGENCY ROOM. IV PATENT AND INTACT. PATIETN ON NON REBREATHER MASK SATURATION ABOVE 95%. PATIETN IS CONFUSED BUT AWAKE , UNABLE TO MAKE NEEDS KNOWN. WOUND DOCUMENTATOIN DONE PICTURES TAKEN NO BELONGING BROUGHT FROM SNF. MD AWARE BROOK HAS ARRIVEDE ON FLOOR , NEW ORDERS TO BE CARRIED OUT BY RN. NPO ORDER . CALL LIGVHT IN PLACE, BED IN LOW POSITION, SIDE RAILS UP, ALL NEEDS MET AT THIS TIME.
[2019-02-20 16:00] VITALS: BP 115/59
[2019-02-20] MEDS ORDERED: LEVOFLOXACIN 500 MG /D5W 100ML 500 MG in PREMIX 1 EA IV ONE (16:00)
[2019-02-20] MEDS ORDERED: FEE PK DOSING 1 MIN EA MC ONE (16:02)
[2019-02-20 16:46] VITALS: BP 115/59
[2019-02-20] MEDS: CALCIUM CARBONATE (1250) 500 MG TABLET PO SCH (17:00)
[2019-02-20] MEDS: DOCUSATE SODIUM 100 MG CAPSULE PO SCH (17:00)
[2019-02-20] MEDS: MEROPENEM 500 MG in IV NS 0.9% 50 ML IV SCH (17:10)
[2019-02-20] MEDS: MULTIVIT W/MINERALS 1 TAB TABLET PO SCH (17:11)
[2019-02-20] MEDS: PROSOURCE / PROSTAT (PYXIS) 30 ML UDC PO SCH (17:11)
[2019-02-20] MEDS: Z GUARD REMEDY 2 OZ OINT TP PRN (17:12)
[2019-02-20] MEDS: ZINC SULFATE 220 MG CAPSULE PO SCH (17:12)
[2019-02-20] MEDS: ASCORBIC ACID 500 MG TABLET PO SCH (17:12)
[2019-02-20] MEDS: risperiDONE 0.25 MG TABLET PO SCH (17:44)
[2019-02-20] MEDS: MEGESTROL ACETATE SUSP 400 MG/10 ML UDC PO SCH (17:45)
[2019-02-20] MEDS ORDERED: Medication Not On Formulary EA (Cran/Vitc/Mannose/Inulin/Brom (Uti-Stat Liquid) 30 MG) PO SCH (18:00)
--- NOTE | 2019-02-20 18:30 | NUR ---
RN CLOSING NOTE CALL LIGVHT IN PLACE, BED IN LOW POSITION, SIDE RAILS UP, ALL NEEDS MET AT THIS TIME. IV ATB GIVEN PER MD ORDERS. ALL NEEDS MET AT THIS TIME. WILL ENDORSE TO NIGHT NURSE WOUND CULTURES NEEDED PER MD ORDR OF BOTH SACRUM AND RT HEEL.
--- NOTE | 2019-02-20 19:05 | NUR ---
ELIAN RN OPENING NOTES PATIENT IN BED, AWAKE, NON VERBAL AND MOANING. ON TELE MONITOR SINUS MALCOM WITH HR 59. ON OXYGEN 10L VIA NONREBREATHER MASK, SATURATING 90-93%, NO SOB NOTED, NO RESPIRATORY DISTRESS NOTED AT THIS TIME. IV SITE LEFT FA 20G AND RIGHT FA 20G, BOTH FLUSHING AND PATENT, SITES C/D/I. PER AM RN, WOUND CULTURE MUST BE DONE. PATIENT NPO. CEJA CATH NOTED DRAINING STEFANI URINE. SAFETY MEASURES MAINTAINED; CALL LIGHT WITHIN REACH, BED IN LOW AND LOCKED POSITION, SIDE RAILS UP X2, HOB ELEVATED. WILL CONT TO MONITOR PT CLOSELY.
[2019-02-20 19:26] LABS: ALKALINE PHOSPHATASE 94 U/L (46-116); ASPARTATE AMINOTRANSFERASE 15 U/L (15-37); BILIRUBIN,DIRECT 0.1 mg/dL (0.0-0.2); BILIRUBIN,TOTAL 0.4 mg/dL (0.2-1.0)
[2019-02-20 19:27] LABS: ALANINE AMINOTRANSFERASE 7 U/L (12-78); ALBUMIN 1.6 g/dL (3.4-5.0); TOTAL PROTEIN, SERUM 7.1 g/dL (6.4-8.2)
[2019-02-20 20:00] VITALS: BP 109/58
[2019-02-20] MEDS: HEPARIN SODIUM, PORCINE 5000 UNITS/1 ML VIAL SQ SCH (20:53)
[2019-02-20] MEDS ORDERED: DIVALPROEX SODIUM 125 MG CAP.SPRINK PO SCH (21:00)
[2019-02-20] MEDS ORDERED: Medication Not On Formulary EA (Dextromethorphan Hbr/Quinidine (Nuedexta 20-10 Mg Capsul PO SCH (21:00)
[2019-02-20] MEDS: IV 1/2NS 1000 ML 1,000 ML IV PRN (22:06)
[2019-02-21] VITALS: BP 93/52
[2019-02-21] MEDS: Z GUARD REMEDY 2 OZ OINT TP PRN (03:15)
[2019-02-21 04:00] VITALS: BP 97/51
[2019-02-21] MEDS: MEROPENEM 500 MG in IV NS 0.9% 50 ML IV SCH ×2 (05:26→17:19)
--- NOTE | 2019-02-21 07:20 | NUR ---
ELIAN RN CLOSING NOTES PATIENT IN BED, AWAKE, NON VERBAL, MOANING. ON TELE MONITOR SR WITH HR 80S. ON OXYGEN 9L VIA NONREBREATHER MASK, SATURATING 95%, NO SOB NOTED, NO RESPIRATORY DISTRESS NOTED AT THIS TIME. IV SITE LEFT FA 20G AND RIGHT FA 20G, BOTH FLUSHING AND PATENT, SITES C/D/I, IV FLUID RUNNING ORDERED, NO INFILTRATION NOTED. WOUND CULTURES SWAB DONE. PATIENT NPO. CEJA CATH OFF THE FLOOR AND DRAINING STEFANI URINE. SAFETY MEASURES MAINTAINED; CALL LIGHT WITHIN REACH, BED IN LOW AND LOCKED POSITION, SIDE RAILS UP X2 AND PADDED, HOB ELEVATED. REPOSITIONED Q2H. ENDORSED TO AM RN FOR NAY.
--- NOTE | 2019-02-21 07:30 | NUR ---
ELIAN RN NOTES RECEIVED PT IN BED,MOANING ON NONREBREATHER. O2 SAT 98% NON LABORED BREATHING/ NORMAL COLORED PIGMENTATION. ON TELE SR. VS STABLE. RHONCHI HEARD ALL LUNG CRONIN. RT SUCTIONED PT NASOPHARYNGEAL; REMOVED SAXENA/BLOODY THICK SECRETIONS. TRIED TO WEAN PT WITH SIMPLE MASK. PT DID NOT TOLERATE. BOBBY MANDUJANO NOTIFIED. ORDERED ABG. BED IN LOCKED/LOWEST POSITION. SEIZURE PRECAUTIONS MAINTAINED. CALL LIGHT IN REACH. WILL CONT TO MONITOR.
[2019-02-21 07:36] LABS: CALCIUM, SERUM 9.5 mg/dL (8.5-10.1); CARBON DIOXIDE 26 mmol/L (21-32); CHLORIDE 116 mmol/L (98-107); CREATININE 1.2 mg/dL (0.6-1.3); GLUCOSE 90 mg/dL (74-106); PHOSPHORUS 2.2 mg/dL (2.5-4.9); POTASSIUM 3.2 mmol/L (3.5-5.1); SODIUM SERUM 150 mmol/L (136-145); UREA NITROGEN, BLOOD 39 mg/dL (7-18)
[2019-02-21 07:38] LABS: BASOPHILS % (AUTO) 0.2 % (0.0-2.0); HEMATOCRIT 28 % (33-45); HEMOGLOBIN 9.3 g/dL (11.5-14.8); LYMPHOCYTES % (AUTO) 10.9 % (20.0-44.0); MEAN CORPUSCULAR HGB CONC 33 g/dl (31.0-36.0); MEAN CORPUSCULAR VOLUME 93 fL (82-100); MONOCYTES % (AUTO) 10.2 % (2.0-12.0); NEUTROPHILS # (AUTO) 7.5 /CMM (1.8-8.9); NEUTROPHILS % (AUTO) 78.7 % (43.0-81.0); PLATELET COUNT (AUTO) 117 /CMM (150-450); RED BLOOD CELL COUNT(AUTO) 3.03 MIL/uL (4.0-5.2); WHITE BLOOD COUNT (AUTO) 9.5 K/uL (4.3-11.0)
[2019-02-21 07:43] LABS: CHOLESTEROL 89 mg/dL (<200); HDL CHOLESTEROL 22 mg/dL (40-60); LDL 30 mg/dL (0-99); THYROID STIMULATING HORMONE 2.671 uIU/mL (0.358-3.74); TRIGLYCERIDES 120 mg/dL (30-150)
[2019-02-21 08:00] VITALS: BP 131/80
--- NOTE | 2019-02-21 08:15 | NUR ---
ELIAN RN NOTES REPORTED PT'S RESPIRATORY STATUS RE: PT ON NON-REBREATHER SINCE ADMISSION. PT DESAT TO LOW 80'S SPO2 DESPITE DEEP SUCTIONING. BOBBY MANDUJANO AWARE. ORDERED STAT ABG.
[2019-02-21] MEDS: VANCOMYCIN 500 MG in IV D5W 100ml IV SCH (08:25)
--- NOTE | 2019-02-21 08:29 | NUR ---
ELIAN RN, patient's k 3.2 and NA 150 Left message to HADOOP ADMINISTRATOR August King ,left message , waiting for retuning call back
--- NOTE | 2019-02-21 08:35 | NUR ---
ELIAN RN , seen by chis ROLL CUTTING OPERATOR exam to patient and aware of BMP levels
[2019-02-21] MEDS: CALCIUM CARBONATE (1250) 500 MG TABLET PO SCH ×2 (09:00→16:27)
[2019-02-21] MEDS: CHOLECALCIFEROL 1,000 UNIT TABLET (VIT D3) PO SCH (09:00)
[2019-02-21] MEDS: DOCUSATE SODIUM 100 MG CAPSULE PO SCH ×2 (09:00→16:26)
[2019-02-21] MEDS: AMLODIPINE BESYLATE 10 MG TABLET PO SCH (09:00)
[2019-02-21] MEDS ORDERED: Medication Not On Formulary EA (Cranberry Fruit Concentrate (Cranberry) 450 MG) PO SCH (09:00)
[2019-02-21] MEDS: CLOPIDOGREL BISULFATE 75 MG TABLET PO SCH (09:00)
[2019-02-21] MEDS: MEGESTROL ACETATE SUSP 400 MG/10 ML UDC PO SCH ×2 (09:00→16:26)
[2019-02-21] MEDS: risperiDONE 0.25 MG TABLET PO SCH ×2 (09:00→16:27)
--- NOTE | 2019-02-21 09:20 | NUR ---
ELIAN RN NOTES REPORTED PT'S RESP STATUS TO DR. CURIEL. ORDERED ABG. WILL CONT TO MONITOR.
[2019-02-21] MEDS: PANTOPRAZOLE 40 MG VIAL IV SCH (09:41)
[2019-02-21] MEDS: HEPARIN SODIUM, PORCINE 5000 UNITS/1 ML VIAL SQ SCH ×2 (09:45→21:19)
[2019-02-21] MEDS ORDERED: LIDOCAINE 1%-EPI 1:100,000 20 ML VIAL TP ONE (10:00)
[2019-02-21] MEDS ORDERED: SILVER NITRATE APPLICATOR 1 EA BOX TP ONE (10:00)
[2019-02-21] MEDS ORDERED: POTASSIUM CL. PREMIX PERIPHER. 50 ML IV SCH (11:25)
[2019-02-21] MEDS ORDERED: POTASSIUM PHOSPHATE MM 7.5 MMOL in IV D5W 100 ML IV SCH (12:00)
[2019-02-21 12:55] LABS: ABG BASE EXCESS -0.1 mmol/L; ABG OXYGEN SATURATION 98.6 % (92.0-98.5); ABG PCO2 33.9 mmHg (35.0-45.0); ABG PH 7.458 (7.350-7.450); ABG PO2 199.4 mmHg (75.0-100.0); AaDO2 407.6 mmHg; COHb 0.3 % (0.5-1.5); MetHb 0.6 % (0.0-1.5); O2Hb 97.7 % (94.0-97.0); SITE, ABG Right Radial; VENT MODE, BG HIGH FLOW NASAL CANNULA
[2019-02-21] MEDS: HYDROGEL DRESSING 90 GM TUBE TP SCH (13:15)
--- NOTE | 2019-02-21 13:32 | NUR ---
haleigh rn notes notified infectious disease judeen re: pt's condition.
--- NOTE | 2019-02-21 13:33 | NUR ---
haleigh rn notes pt placed on high flow oxygen. abg done after installing high flow. reviewed by rt.
[2019-02-21 16:00] VITALS: BP 96/51
[2019-02-21] MEDS ORDERED: LEVOFLOXACIN 250 MG /D5W 50 ML 250 MG in PREMIX 1 EA IV SCH (16:00)
[2019-02-21] MEDS: IV 1/2NS 1000 ML 1,000 ML IV PRN (16:17)
[2019-02-21] MEDS: LACTOBACILLUS RHAMNOSUS GG 1 EACH CAP.SPRINK PO SCH (16:26)
[2019-02-21] MEDS: ASCORBIC ACID 500 MG TABLET PO SCH (16:27)
[2019-02-21] MEDS: PROSOURCE / PROSTAT (PYXIS) 30 ML UDC PO SCH (16:27)
[2019-02-21] MEDS: MULTIVIT W/MINERALS 1 TAB TABLET PO SCH (16:27)
[2019-02-21] MEDS: ZINC SULFATE 220 MG CAPSULE PO SCH (16:28)
--- NOTE | 2019-02-21 16:56 | NUR ---
Patient is readmitted in 30days from last discharge admission. Patient resides at [facility] [phone]. She is chair and bed bound. Requires mod-max assist with adl's. Current dc plan is to return to SNF once discharge. Addendum: 02/21/19 at 1657 by JOSÉ VILLALOBOS RN Amended: Links added.
[2019-02-21] MEDS: CHLORHEXIDINE GLUCONATE 15 ML UDC MM SCH (17:19)
[2019-02-21] MEDS: NYSTATIN (PYXIS) 500,000 UNIT/5 ML ORAL.SUSP PO SCH (17:19)
--- NOTE | 2019-02-21 19:00 | NUR ---
ELIAN RN END OF SHIFT NOTES PT IN BED, STABLE ON HIGH FLOW OXYGEN. ENDORSED TO PM NURSE FOR NAY.
--- NOTE | 2019-02-21 19:45 | NUR ---
ELIAN NOTES RECEIVED PT AWAKE,MOANING NO RESPONSE WHEN ASKED IF IN PAIN.ON HI-FLOW O2 AT 50% 60LPM.SUCTIONED FOR SCANT AMT LIGHT BLOOD-TINGED SECRETIONS SMALL AMOUNT.DENIES SOB.MONITOR SHOWS NSR.
[2019-02-21 20:00] VITALS: BP 103/56
[2019-02-21] MEDS: ATORVASTATIN 10 MG TABLET PO SCH (22:35)
[2019-02-22] VITALS: BP 104/40
[2019-02-22] MEDS: VANCOMYCIN 500 MG in IV D5W 100ml IV SCH ×2 (02:12→20:26)
--- NOTE | 2019-02-22 02:30 | NUR ---
ELIAN NOTES SUCTIONED FOR PALE BLOODY SECRETIONS,SCANT AMT.ORAL CARE DONE
[2019-02-22 04:00] VITALS: BP 93/52
[2019-02-22] MEDS: MEROPENEM 500 MG in IV NS 0.9% 50 ML IV SCH ×2 (04:59→16:26)
--- NOTE | 2019-02-22 06:13 | NUR ---
ELIAN NOTES CONDITION UNCHANGED.MAINTAINING SATURATION 0F 99-100 % ON HIGH FLOW 50% AT 50LPM.
[2019-02-22 07:16] LABS: BASOPHILS % (AUTO) 0.3 % (0.0-2.0); EOSINOPHILS % (AUTO) 0.1 % (0.0-6.0); HEMATOCRIT 28 % (33-45); HEMOGLOBIN 9.2 g/dL (11.5-14.8); LYMPHOCYTES # (AUTO) 1.6 /CMM (0.8-4.8); LYMPHOCYTES % (AUTO) 18.1 % (20.0-44.0); MEAN CORPUSCULAR HGB CONC 33 g/dl (31.0-36.0); MEAN CORPUSCULAR VOLUME 94 fL (82-100); MONOCYTES # (AUTO) 0.5 /CMM (0.1-1.30); MONOCYTES % (AUTO) 6.1 % (2.0-12.0); NEUTROPHILS # (AUTO) 6.7 /CMM (1.8-8.9); NEUTROPHILS % (AUTO) 75.4 % (43.0-81.0); PLATELET COUNT (AUTO) 132 /CMM (150-450); RED BLOOD CELL COUNT(AUTO) 2.98 MIL/uL (4.0-5.2); WHITE BLOOD COUNT (AUTO) 8.9 K/uL (4.3-11.0)
--- NOTE | 2019-02-22 07:30 | NUR ---
RN NOTE: RECEIVED PATIENT IN BED, ASLEEP AND LETHARGIC. ABLE TO SPONTANEOUSLY OPEN HER EYES WITH TACTILE STIMULI. RESPIRATION EVEN AND UNLABORED WITH HEATED HIGH FLOW OF OXYGEN WITH FIO2 50% AND 50L/MIN OF O2 WAS PROVIDED. HOB ELEVATED. BED ALARMED AND LOCKED AT ALL TIMES. ON VOLUMETRIC WEIGHER SB HR= 58. PATIENT WAS ON IVF INFUSING 1/2 NS @75ML/HR. CEJA CATHETER IN PLACED WITH YELLOW URINE DRAINING TO GRAVITY. CALL LIGHT WITHIN REACH. NEEDS ANTICIPATED.
--- NOTE | 2019-02-22 07:57 | NUR ---
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 WOUND CARE WILL DEFER CONSULT AND ALL TREATMENT PLANS TO PLASTIC SURGICAL TEAM WHO ARE CURRENTLY FOLLOWING THIS PATIENT. FOR THE RIGHT HEEL ULCER, DR TSE AWARE OF THIS CONSULT. PATIENT WITH DIPAK AT 9. ALL PRESSURE ULCER PREVENTION MEASURES ARE NOTED TO BE IN PLACE. WILL SEE PRN.
[2019-02-22 08:00] VITALS: BP 98/46
[2019-02-22 08:18] LABS: CALCIUM, SERUM 9.3 mg/dL (8.5-10.1); CARBON DIOXIDE 25 mmol/L (21-32); CHLORIDE 113 mmol/L (98-107); CREATININE 1.2 mg/dL (0.6-1.3); GLUCOSE 82 mg/dL (74-106); POTASSIUM 3.5 mmol/L (3.5-5.1); SODIUM SERUM 146 mmol/L (136-145); UREA NITROGEN, BLOOD 36 mg/dL (7-18)
[2019-02-22] MEDS: IV 1/2NS 1000 ML 1,000 ML IV PRN ×2 (08:20→20:49)
[2019-02-22] MEDS: CHOLECALCIFEROL 1,000 UNIT TABLET (VIT D3) PO SCH (09:00)
[2019-02-22] MEDS: MEGESTROL ACETATE SUSP 400 MG/10 ML UDC PO SCH ×2 (09:00→16:30)
[2019-02-22] MEDS: CALCIUM CARBONATE (1250) 500 MG TABLET PO SCH ×2 (09:00→16:30)
[2019-02-22] MEDS: risperiDONE 0.25 MG TABLET PO SCH ×2 (09:00→16:30)
[2019-02-22] MEDS: HEPARIN SODIUM, PORCINE 5000 UNITS/1 ML VIAL SQ SCH ×2 (09:00→20:47)
[2019-02-22] MEDS: DOCUSATE SODIUM 100 MG CAPSULE PO SCH ×2 (09:00→16:29)
[2019-02-22] MEDS: CLOPIDOGREL BISULFATE 75 MG TABLET PO SCH (09:00)
[2019-02-22] MEDS: AMLODIPINE BESYLATE 10 MG TABLET PO SCH (09:00)
[2019-02-22] MEDS: LACTOBACILLUS RHAMNOSUS GG 1 EACH CAP.SPRINK PO SCH ×2 (09:00→16:29)
--- NOTE | 2019-02-22 09:00 | NUR ---
RN NOTE: HEPARIN SQ WAS HELD DUE TO A POSSIBLE SACRAL WOUND DEBRIDEMENT TODAY PER DAYSI LAMB.
--- NOTE | 2019-02-22 09:40 | NUR ---
RN NOTE: BOBBY MANDUJANO NP CAME BY AND REQUESTED TO DECREASE THE PATIENT'S FIO2 DEPENDING ON THE PATIENT'S TOLERANCE AND SATURATION. PER Marcellus MANDUJANO NP DO AN ABG 1 HR POST FIO2 CHANGES. ORDER, NOTED AND CARRIED OUT. RT DELBERT WAS MADE AWARE.
[2019-02-22] MEDS: Z GUARD REMEDY 2 OZ OINT TP PRN (09:52)
[2019-02-22] MEDS: HYDROGEL DRESSING 90 GM TUBE TP SCH (09:52)
[2019-02-22] MEDS: NYSTATIN (PYXIS) 500,000 UNIT/5 ML ORAL.SUSP PO SCH ×3 (09:56→16:26)
[2019-02-22] MEDS: CHLORHEXIDINE GLUCONATE 15 ML UDC MM SCH ×2 (09:56→16:26)
[2019-02-22] MEDS: PANTOPRAZOLE 40 MG VIAL IV SCH (09:56)
[2019-02-22 11:18] LABS: ABG BASE EXCESS -1.5 mmol/L; ABG OXYGEN SATURATION 96.6 % (92.0-98.5); ABG PCO2 33.7 mmHg (35.0-45.0); ABG PH 7.438 (7.350-7.450); ABG PO2 94.7 mmHg (75.0-100.0); AaDO2 115.7 mmHg; COHb 0.3 % (0.5-1.5); O2Hb 95.3 % (94.0-97.0); SITE, ABG Right Radial; VENT MODE, BG HIFLO NC 50L 35%
--- NOTE | 2019-02-22 11:36 | NUR ---
RN NOTE: CALLED AND SPOKE WITH BOBBY MANDUJANO NP REGARDING THE ABG RESULT. GUSSET RIPPER WITH NO NEW ORDER. WILL CONTINUE TO KEEP THE PATIENT ON FIO2 35% AND MONITOR THE PATIENT'S SATURATION.
[2019-02-22 12:00] VITALS: BP 112/48
[2019-02-22 16:00] VITALS: BP 136/81
[2019-02-22] MEDS: ASCORBIC ACID 500 MG TABLET PO SCH (17:51)
[2019-02-22] MEDS: PROSOURCE / PROSTAT (PYXIS) 30 ML UDC PO SCH (17:51)
[2019-02-22] MEDS: MULTIVIT W/MINERALS 1 TAB TABLET PO SCH (17:51)
[2019-02-22] MEDS: ZINC SULFATE 220 MG CAPSULE PO SCH (17:51)
[2019-02-22 20:00] VITALS: BP 138/46
--- NOTE | 2019-02-22 20:00 | NUR ---
RN NOTE: BEDSIDE REPORT WAS GIVEN TO PM SHIFT NURSE FOR CONTINUITY OF CARE. PATIENT REMAINED NPO AND DROWSY. CEJA CATHETER REMAINED IN PLACED WITH YELLOW URINE DRAINING TO GRAVITY.
[2019-02-22] MEDS: ATORVASTATIN 10 MG TABLET PO SCH (22:00)
[2019-02-23] VITALS: BP 127/55
[2019-02-23 04:00] VITALS: BP 123/80
[2019-02-23] MEDS: MEROPENEM 500 MG in IV NS 0.9% 50 ML IV SCH ×2 (04:21→16:21)
[2019-02-23 06:42] LABS: BASOPHILS % (AUTO) 0.3 % (0.0-2.0); EOSINOPHILS % (AUTO) 0.1 % (0.0-6.0); HEMATOCRIT 25 % (33-45); HEMOGLOBIN 8.2 g/dL (11.5-14.8); LYMPHOCYTES # (AUTO) 1.4 /CMM (0.8-4.8); LYMPHOCYTES % (AUTO) 16.8 % (20.0-44.0); MEAN CORPUSCULAR HGB CONC 33 g/dl (31.0-36.0); MEAN CORPUSCULAR VOLUME 92 fL (82-100); MONOCYTES # (AUTO) 0.6 /CMM (0.1-1.30); MONOCYTES % (AUTO) 6.9 % (2.0-12.0); NEUTROPHILS # (AUTO) 6.5 /CMM (1.8-8.9); NEUTROPHILS % (AUTO) 75.9 % (43.0-81.0); PLATELET COUNT (AUTO) 150 /CMM (150-450); RED BLOOD CELL COUNT(AUTO) 2.69 MIL/uL (4.0-5.2); WHITE BLOOD COUNT (AUTO) 8.6 K/uL (4.3-11.0)
[2019-02-23 07:06] LABS: CALCIUM, SERUM 8.6 mg/dL (8.5-10.1); CARBON DIOXIDE 23 mmol/L (21-32); CHLORIDE 111 mmol/L (98-107); GLUCOSE 66 mg/dL (74-106); POTASSIUM 3.3 mmol/L (3.5-5.1); SODIUM SERUM 144 mmol/L (136-145); UREA NITROGEN, BLOOD 27 mg/dL (7-18)
--- NOTE | 2019-02-23 07:30 | NUR ---
ELIAN RN NOTE: RECEIVED PATIENT IN BED, ASLEEP AND LETHARGIC. OPENS EYES WITH TACTILE STIMULI. MOANS AND GROANS. RESPIRATION EVEN AND UNLABORED WITH HEATED HIGH FLOW OF OXYGEN WITH FIO2 50% AND 50L/MIN OF O2. SR HR 76 NO SIGNS OF PAIN. RFA RFA G24 FLUSHES WELL AND LFA G 20 WITH 1/2 NS INFUSING AT 75 ML/HR, BOTH SITES CLEAR. NPO FOR NOW UNTIL SWALLOW EVAL. SES NURSING FLOWSHEET FOR SKIN ISSUES. HOB ELEVATED. BED ALARMED AND LOCKED AT ALL TIMES. CEJA CATHETER IN PLACED WITH YELLOW URINE DRAINING TO GRAVITY. CALL LIGHT WITHIN REACH. NEEDS ANTICIPATED. WILL TURN AND REPOSITION Q 2 HOURS. WILL PERFORM PRESCRIBED WOUND TREATMENT ORDERED IN A WHILE. WILL MONITOR.
[2019-02-23 08:00] VITALS: BP 121/78
[2019-02-23] MEDS: AMLODIPINE BESYLATE 10 MG TABLET PO SCH (09:00)
[2019-02-23] MEDS: MEGESTROL ACETATE SUSP 400 MG/10 ML UDC PO SCH ×2 (09:00→16:22)
[2019-02-23] MEDS: risperiDONE 0.25 MG TABLET PO SCH ×2 (09:00→16:22)
[2019-02-23] MEDS: LACTOBACILLUS RHAMNOSUS GG 1 EACH CAP.SPRINK PO SCH ×2 (09:00→16:22)
[2019-02-23] MEDS: CLOPIDOGREL BISULFATE 75 MG TABLET PO SCH (09:00)
[2019-02-23] MEDS: DOCUSATE SODIUM 100 MG CAPSULE PO SCH ×2 (09:00→16:22)
[2019-02-23] MEDS: CALCIUM CARBONATE (1250) 500 MG TABLET PO SCH ×2 (09:00→16:22)
[2019-02-23] MEDS: CHOLECALCIFEROL 1,000 UNIT TABLET (VIT D3) PO SCH (09:00)
[2019-02-23 09:14] LABS: BAND % (MANUAL) 2 % (0.0-5.0); LYMPHOCYTES % (MANUAL) 16 % (16-48); MONOCYTES % (MANUAL) 6 % (0-11.0); MYELOCYTES % 1 % (0-0); NEUTROPHILS % (MANUAL) 75 (42-76)
[2019-02-23] MEDS: NYSTATIN (PYXIS) 500,000 UNIT/5 ML ORAL.SUSP PO SCH ×3 (09:14→16:22)
[2019-02-23] MEDS: CHLORHEXIDINE GLUCONATE 15 ML UDC MM SCH ×2 (09:14→16:21)
[2019-02-23] MEDS: PANTOPRAZOLE 40 MG VIAL IV SCH (09:14)
[2019-02-23] MEDS: HYDROGEL DRESSING 90 GM TUBE TP SCH (09:16)
[2019-02-23] MEDS: HEPARIN SODIUM, PORCINE 5000 UNITS/1 ML VIAL SQ SCH ×2 (09:17→21:01)
--- NOTE | 2019-02-23 09:30 | NUR ---
SOLE DYER NOTES DUE MEDS GIVEN
[2019-02-23] MEDS ORDERED: POTASSIUM CL. PREMIX PERIPHER. 50 ML IV SCH ×2 (10:35→11:16)
[2019-02-23] MEDS: IV 1/2NS 1000 ML 1,000 ML IV PRN (11:00)
[2019-02-23] MEDS ORDERED: NEPRO 1,000 ML BOTTLE GT PRN (11:30)
[2019-02-23 12:00] VITALS: BP 112/86
--- NOTE | 2019-02-23 13:46 | NUR ---
HOME HEALTH SCHEDULER NOTES [facility] VANCO TROUGH IS 22. SCHEDULED VANCO FOR 1400 NOT GIVEN
[2019-02-23] MEDS: VANCOMYCIN 500 MG in IV D5W 100ml IV SCH (13:47)
[2019-02-23 16:00] VITALS: BP 107/61
[2019-02-23] MEDS: PROSOURCE / PROSTAT (PYXIS) 30 ML UDC PO SCH (17:39)
[2019-02-23] MEDS: ASCORBIC ACID 500 MG TABLET PO SCH (17:40)
[2019-02-23] MEDS: MULTIVIT W/MINERALS 1 TAB TABLET PO SCH (17:40)
[2019-02-23] MEDS: ZINC SULFATE 220 MG CAPSULE PO SCH (17:40)
--- NOTE | 2019-02-23 18:09 | NUR ---
TRANSMISSION TESTER CLOSING NOTE: PATIENT IN BED, ASLEEP AND LETHARGIC. OPENS EYES WITH TACTILE STIMULI. MOANS AND GROANS. RESPIRATION EVEN AND UNLABORED WITH HEATED HIGH FLOW OF OXYGEN WITH FIO2 50% AND 50L/MIN OF O2. SR HR 75 NO SIGNS OF PAIN. RFA RFA G24 FLUSHES WELL AND LFA G 20 WITH 1/2 NS INFUSING AT 75 ML/HR, BOTH SITES CLEAR. NPO FOR NOW UNTIL SWALLOW EVAL. HOB ELEVATED. BED ALARMED AND LOCKED AT ALL TIMES. CEJA CATHETER IN PLACED WITH YELLOW URINE DRAINING TO GRAVITY WITH 700 ML OUTPUT. CALL LIGHT WITHIN REACH. NEEDS MET. TURNED AND REPOSITIONED Q 2 HOURS. PM CARE AND PERFORMED PRESCRIBED WOUND TREATMENT ORDERED. WILL ENDORSE TO NEXT SHIFT FOR NAY. Addendum: 02/23/19 at 1814 by NILO WARD RN ADDENDUM SWALLOW EVAL WILL BE DONE ON MONDAY PER SPEECH THERAPIST WHEN THEY CALLED HER. AND CHARGE NURSE AWARE.
--- NOTE | 2019-02-23 19:40 | NUR ---
ICU/FUR STYLIST RECEIVED REPORT FROM DAY NURSE. SEE NURSING FLOW SHEET FOR ASSESSMENT ALONG WITH ANY SKIN ISSUES WHICH ARE ADDRESSED ALONG WITH INTERVENTIONS TO EACH ON THE FLOWSHEET. PT HAS IVF THAT ARE ADDRESSED ON THE FLOWSHEET. PT WAS TURNED AND REPOSITIONED FOR COMFORT AND CARE. NO ACUTE DISTRESS SEEN AT THIS TIME. WILL CONTINUE TO MONITOR THIS PT.
[2019-02-23 20:00] VITALS: BP 111/73
[2019-02-23] MEDS: ATORVASTATIN 10 MG TABLET PO SCH ×2 (21:00→21:07)
--- NOTE | 2019-02-23 22:05 | NUR ---
ELIAN/ELECTRIC POWER LINE REPAIRER PT WAS GIVEN PM CARE, NO BM SEEN AT THIS TIME, WILL MONITOR THIS. PT REMAINS ON CURRENT HIGH FLOW O2 WITH SATURATION AT 98-100%. PT WAS TURNED AND REPOSITIONED FOR COMFORT AND CARE. WILL CONTINUE TO MONITOR THIS PT. NO ACUTE DISTRESS SEEN AT THIS TIME.
[2019-02-24] VITALS: BP 109/47
--- NOTE | 2019-02-24 00:45 | NUR ---
ELIAN/SEAFOOD PREPARER PT WAS TURNED AND REPOSITIONED FOR COMFORT AND CARE. WILL CONTINUE TO MONITOR THIS PT. NO ACUTE DISTRESS SEEN AT THIS TIME, HOWEVER PT AT TIMES APPEARS TO MOAN.
[2019-02-24] MEDS: IV 1/2NS 1000 ML 1,000 ML IV PRN (01:37)
--- NOTE | 2019-02-24 02:25 | NUR ---
ELIAN/HARBOR BOAT PILOT PT WAS GIVEN AM CARE, NO BM SEEN AT THIS TIME, WILL MONITOR THIS. AT THIS TIME DRESSING CHANGES WERE DONE. PT REMAINS ON CURRENT HIGH FLOW O2 WITH SATURATION AT 98-100%. PT WAS TURNED AND REPOSITIONED FOR COMFORT AND CARE. WILL CONTINUE TO MONITOR THIS PT. NO ACUTE DISTRESS SEEN AT THIS TIME.
[2019-02-24 04:00] VITALS: BP 105/81
--- NOTE | 2019-02-24 05:10 | NUR ---
ELIAN/RECORD CUTTER AM LABS WERE DONE, WAIT FOR ANY ABNORMAL RESULTS.
[2019-02-24] MEDS: MEROPENEM 500 MG in IV NS 0.9% 50 ML IV SCH ×2 (05:31→16:24)
[2019-02-24 06:59] LABS: BASOPHILS % (AUTO) 0.3 % (0.0-2.0); EOSINOPHILS % (AUTO) 0.2 % (0.0-6.0); HEMATOCRIT 31 % (33-45); HEMOGLOBIN 10.1 g/dL (11.5-14.8); LYMPHOCYTES # (AUTO) 1.7 /CMM (0.8-4.8); LYMPHOCYTES % (AUTO) 21.6 % (20.0-44.0); MEAN CORPUSCULAR HGB CONC 33 g/dl (31.0-36.0); MEAN CORPUSCULAR VOLUME 92 fL (82-100); MONOCYTES # (AUTO) 0.7 /CMM (0.1-1.30); MONOCYTES % (AUTO) 8.6 % (2.0-12.0); NEUTROPHILS # (AUTO) 5.5 /CMM (1.8-8.9); NEUTROPHILS % (AUTO) 69.3 % (43.0-81.0); PLATELET COUNT (AUTO) 184 /CMM (150-450); RED BLOOD CELL COUNT(AUTO) 3.34 MIL/uL (4.0-5.2)
[2019-02-24 07:17] LABS: CARBON DIOXIDE 19 mmol/L (21-32); CHLORIDE 107 mmol/L (98-107); CREATININE 0.9 mg/dL (0.6-1.3); GLUCOSE 52 mg/dL (74-106); SODIUM SERUM 139 mmol/L (136-145); UREA NITROGEN, BLOOD 20 mg/dL (7-18)
--- NOTE | 2019-02-24 07:30 | NUR ---
BUTTER GRADER AM NOTE: RECEIVED PATIENT IN BED, ASLEEP AND LETHARGIC. OPENS EYES WITH TACTILE STIMULI. MOANS AND GROANS. RESPIRATION EVEN AND UNLABORED WITH HEATED HIGH FLOW OF OXYGEN WITH FIO2 50% AND 50L/MIN OF O2. SR HR 78 NO SIGNS OF PAIN. RFA RFA G24 FLUSHES WELL AND LFA G 20 WITH 1/2 NS INFUSING AT 75 ML/HR, BOTH SITES CLEAR. NPO FOR NOW UNTIL SWALLOW EVAL. SES NURSING FLOWSHEET FOR SKIN ISSUES. HOB ELEVATED. BED ALARMED AND LOCKED AT ALL TIMES. CEJA CATHETER IN PLACED WITH YELLOW URINE DRAINING TO GRAVITY. CALL LIGHT WITHIN REACH. NEEDS ANTICIPATED. WILL TURN AND REPOSITION Q 2 HOURS. WILL PERFORM PRESCRIBED WOUND TREATMENT ORDERED IN A WHILE. WILL MONITOR.
[2019-02-24 08:00] VITALS: BP 144/69
[2019-02-24] MEDS ORDERED: DEXTROSE 50%-WATER 50 ML DISP.SYRIN IVP PRN (08:00)
--- NOTE | 2019-02-24 08:00 | NUR ---
RN NOTES BS CHECKED. = 51 MG/DL. BOBBY MANDUJANO NOTIFIED. WILL GIVE D50 WATER.
--- NOTE | 2019-02-24 08:00 | NUR ---
RT PATIENT REMOVED FROM HFNC AND PLACED ON 5L N/C MINAL WELL KEEPING SPO2 ABOVE 92% AND NO SOB NOTED.
[2019-02-24] MEDS: VANCOMYCIN 500 MG in IV D5W 100 ML IV SCH (08:07)
--- NOTE | 2019-02-24 08:35 | NUR ---
RN NOTES BS RECHECKED 186 MG/DL.
[2019-02-24] MEDS: PANTOPRAZOLE 40 MG VIAL IV SCH (08:56)
[2019-02-24] MEDS: CHLORHEXIDINE GLUCONATE 15 ML UDC MM SCH ×2 (08:56→16:24)
[2019-02-24] MEDS: HEPARIN SODIUM, PORCINE 5000 UNITS/1 ML VIAL SQ SCH ×2 (08:58→21:36)
[2019-02-24] MEDS: NYSTATIN (PYXIS) 500,000 UNIT/5 ML ORAL.SUSP PO SCH ×3 (09:00→16:20)
[2019-02-24] MEDS: DOCUSATE SODIUM 100 MG CAPSULE PO SCH ×2 (09:00→16:19)
[2019-02-24] MEDS: CLOPIDOGREL BISULFATE 75 MG TABLET PO SCH (09:00)
[2019-02-24] MEDS: AMLODIPINE BESYLATE 10 MG TABLET PO SCH (09:00)
[2019-02-24] MEDS: CHOLECALCIFEROL 1,000 UNIT TABLET (VIT D3) PO SCH (09:00)
[2019-02-24] MEDS: MEGESTROL ACETATE SUSP 400 MG/10 ML UDC PO SCH ×2 (09:00→16:20)
[2019-02-24] MEDS: risperiDONE 0.25 MG TABLET PO SCH ×2 (09:00→16:20)
[2019-02-24] MEDS: LACTOBACILLUS RHAMNOSUS GG 1 EACH CAP.SPRINK PO SCH ×2 (09:00→16:20)
[2019-02-24] MEDS: CALCIUM CARBONATE (1250) 500 MG TABLET PO SCH ×2 (09:00→16:20)
[2019-02-24] MEDS: HYDROGEL DRESSING 90 GM TUBE TP SCH (09:18)
--- NOTE | 2019-02-24 09:30 | NUR ---
MS RN NOTES DUE MEDS GIVEN DC TELEMETRY PER DR. CARREON.
--- NOTE | 2019-02-24 10:45 | NUR ---
MS RN NOTES ABG DONE PER DR. CURIEL, RESULTS RELAYED. PATIENT NOW ON 2L O2 NASAL CANULA
[2019-02-24 10:51] LABS: ABG BASE EXCESS -1.5 mmol/L; ABG OXYGEN SATURATION 98.9 % (92.0-98.5); ABG PCO2 29.9 mmHg (35.0-45.0); ABG PH 7.476 (7.350-7.450); ABG PO2 251.3 mmHg (75.0-100.0); AaDO2 21.1 mmHg; COHb 0.3 % (0.5-1.5); MetHb 0.9 % (0.0-1.5); O2Hb 97.7 % (94.0-97.0); SITE, ABG Right Radial; VENT MODE, BG 6L N/C
--- NOTE | 2019-02-24 11:58 | NUR ---
RT PATIENT PLACED ON 2L N/C MAINTAINING SPO2 ABOVE 92%. RN AWARE
[2019-02-24 16:00] VITALS: BP 127/50
[2019-02-24] MEDS: IV D5/0.45 NACL 1,000 ML IV PRN (16:30)
[2019-02-24] MEDS: PROSOURCE / PROSTAT (PYXIS) 30 ML UDC PO SCH (17:08)
[2019-02-24] MEDS: ZINC SULFATE 220 MG CAPSULE PO SCH (17:08)
[2019-02-24] MEDS: MULTIVIT W/MINERALS 1 TAB TABLET PO SCH (17:08)
[2019-02-24] MEDS: ASCORBIC ACID 500 MG TABLET PO SCH (17:08)
--- NOTE | 2019-02-24 18:55 | NUR ---
MS RN CLOSING NOTE: PATIENT IN BED, ASLEEP AND LETHARGIC. OPENS EYES WITH TACTILE STIMULI. MOANS AND GROANS. RESPIRATION EVEN AND UNLABORED WITH O2 AT 2L O2 NASAL CANULA. SR HR 75 NO SIGNS OF PAIN. RFA G24 FLUSHES WELL AND LFA G 20 WITH D51/2 NS INFUSING AT 75 ML/HR, BOTH SITES CLEAR. NPO FOR NOW UNTIL SWALLOW EVAL. HOB ELEVATED. BED ALARMED AND LOCKED AT ALL TIMES. CEJA CATHETER IN PLACED WITH YELLOW URINE DRAINING TO GRAVITY WITH 1400 ML OUTPUT. CALL LIGHT WITHIN REACH. NEEDS MET. TURNED AND REPOSITIONED Q 2 HOURS. PM CARE AND PERFORMED PRESCRIBED WOUND TREATMENT ORDERED. WILL ENDORSE TO NEXT SHIFT FOR NAY. SWALLOW EVAL WILL BE DONE ON MONDAY PER SPEECH THERAPIST WHEN THEY CALLED HER. MD AND CHARGE NURSE AWARE.
--- NOTE | 2019-02-24 19:50 | NUR ---
MS RN NOTES, PATIENT IN BED, WITH OPENS EYES, AROUSES TO VERBAL OR TACTILE STIMULI, MOANS AND GROANS, NONVERBAL, BREATHING EVEN AND UNLABORED, O2 AT 2L O2 NASAL CANULA, NO S/S OF SOB/ACUTE DISTRESS NOTED AT THIS TIME, IV ACCESS RFA G24 L AND LFA G 20 PATENT AND INTACT, WITH D51/2 NS INFUSING WELL AND PATIENT TOLERATED WELL, NPO AT THIS TIME, UNTIL SWALLOW EVALUATION DONE, HOB ELEVATED, BED LOCKED AND LOW POSITION, CEJA CATHETER IN PLACED WITH YELLOW URINE DRAINING TO GRAVITY, WILL CONTINUE TO MONITOR CLOSELY.
[2019-02-24 20:00] VITALS: BP 135/37
--- NOTE | 2019-02-24 21:00 | NUR ---
RN NOTES, IMELDA YU NP ON THIS DEPARTMENT AT THIS TIME, INFORMING THAT MERREM IV ANTIBIOTIC WILL BE CHANGE TO CEFTRIAXONE IG IV FOR INFECTION OF THE WOUND, AWARE ALSO THAT PATIENT IS ALLERGIC TO PENICILLINS AND WOULDN'T AFFECT THAT PATIENT IS ALLERGIC TO PENICILLIN SINCE THE PATIENT HAD ALREADY ON CEFEPIME, AND LET THE PHARMACY KNOWN IN CASE THEY CALL TO VERIFY, NOTED AN CARRIED OUT, WILL ADMINISTERED MEDICATION ORDERED.
[2019-02-24] MEDS ORDERED: CEFTRIAXONE 1 G VIAL ONE (21:15)
[2019-02-24] MEDS: CEFTRIAXONE 1 G in IV D5W 50 ML IV SCH (21:34)
[2019-02-24] MEDS: ATORVASTATIN 10 MG TABLET PO SCH (21:49)
[2019-02-25 04:00] VITALS: BP_SYST 140; BP_SYST 162; BP_DIAS 42; BP_DIAS 72
--- NOTE | 2019-02-25 06:29 | NUR ---
RN NOTES, PATIENT IN BED, SLEEPING AT THIS TIME, BUT EASILY AROUSES TO VERBAL AND TACTILE STIMULI, BREATHING EVEN AND UNLABORED AT ROOM AIR, , NO SOB/ACUTE DISTRESS NOTED AT THIS TIME, PATIENT AGAIN ASKED TO TAKE PICTURES OF SKIN ISSUES AND PATIENT REFUSED AGAIN, CHARGE NURSE AWARE, NO SIGNIFICANT CHANCE IN CONDITION DURING THE NIGHT, CALL LIGHT W/I REACH, BED LOCKED AND IN LOW POSITION, WILL ENDORSE CONTINUITY OF CARE TO ONCOMING NURSE. Addendum: 02/25/19 at 0637 by ALEXIA BHATT RN WRONG ENTRY
--- NOTE | 2019-02-25 06:46 | NUR ---
PATIENT IN BED, SLEEPING AT THIS TIME, BUT EASILY AROUSES TO VERBAL AND TACTILE STIMULI, BREATHING EVEN AND UNLABORED ON O2 AT 2LPM VIA NC, , NO SOB/ACUTE DISTRESS NOTED AT THIS TIME, NO SIGNIFICANT CHANCE IN CONDITION DURING THE NIGHT, CALL LIGHT W/I REACH, BED LOCKED AND IN LOW POSITION, WILL ENDORSE CONTINUITY OF CARE TO ONCOMING NURSE.
--- NOTE | 2019-02-25 07:20 | NUR ---
MS RN OPENING NOTE. RECEIVED REPORT FROM [facility] SHIFT NURSE, PT ASLEEP IN BED, ON 02 NASAL CANULA 2L/MIN, SATURATING WELL, RESPIRATIONS EASY AND UNLABORED, NO SIGNS OF RESPIRATORY DISTRESS NOTED. CEJA CATHETER DRAINING CLEAR YELLOW URINE. NPO STATUS. WILL HOLD ALL PO MEDS. BED IN LOW POSITION, LOCKED, CALL LIGHT WITHIN REACH.
[2019-02-25 07:25] LABS: BASOPHILS % (AUTO) 0.3 % (0.0-2.0); CALCIUM, SERUM 8.8 mg/dL (8.5-10.1); CARBON DIOXIDE 25 mmol/L (21-32); CHLORIDE 109 mmol/L (98-107); CREATININE 0.7 mg/dL (0.6-1.3); EOSINOPHILS % (AUTO) 0.3 % (0.0-6.0); GLUCOSE 128 mg/dL (74-106); HEMATOCRIT 29 % (33-45); HEMOGLOBIN 9.9 g/dL (11.5-14.8); LYMPHOCYTES # (AUTO) 1.8 /CMM (0.8-4.8); LYMPHOCYTES % (AUTO) 22.2 % (20.0-44.0); MEAN CORPUSCULAR HGB CONC 34 g/dl (31.0-36.0); MEAN CORPUSCULAR VOLUME 91 fL (82-100); MONOCYTES # (AUTO) 0.9 /CMM (0.1-1.30); MONOCYTES % (AUTO) 11.3 % (2.0-12.0); NEUTROPHILS # (AUTO) 5.3 /CMM (1.8-8.9); NEUTROPHILS % (AUTO) 65.9 % (43.0-81.0); PLATELET COUNT (AUTO) 180 /CMM (150-450); POTASSIUM 3.5 mmol/L (3.5-5.1); RED BLOOD CELL COUNT(AUTO) 3.22 MIL/uL (4.0-5.2); SODIUM SERUM 142 mmol/L (136-145); UREA NITROGEN, BLOOD 13 mg/dL (7-18); WHITE BLOOD COUNT (AUTO) 8.1 K/uL (4.3-11.0)
[2019-02-25 08:00] VITALS: BP 131/83
[2019-02-25] MEDS: LACTOBACILLUS RHAMNOSUS GG 1 EACH CAP.SPRINK PO SCH ×2 (08:04→17:15)
[2019-02-25] MEDS: MEGESTROL ACETATE SUSP 400 MG/10 ML UDC PO SCH ×2 (08:04→17:15)
[2019-02-25] MEDS: DOCUSATE SODIUM 100 MG CAPSULE PO SCH ×2 (08:04→17:16)
[2019-02-25] MEDS: AMLODIPINE BESYLATE 10 MG TABLET PO SCH (08:05)
[2019-02-25] MEDS: CALCIUM CARBONATE (1250) 500 MG TABLET PO SCH ×2 (08:05→17:15)
[2019-02-25] MEDS: CLOPIDOGREL BISULFATE 75 MG TABLET PO SCH (08:06)
[2019-02-25] MEDS: CHOLECALCIFEROL 1,000 UNIT TABLET (VIT D3) PO SCH (08:06)
[2019-02-25] MEDS: risperiDONE 0.25 MG TABLET PO SCH ×2 (08:06→17:16)
[2019-02-25] MEDS: PANTOPRAZOLE 40 MG VIAL IV SCH (08:11)
[2019-02-25] MEDS: NYSTATIN (PYXIS) 500,000 UNIT/5 ML ORAL.SUSP PO SCH ×3 (08:11→17:15)
[2019-02-25] MEDS: HEPARIN SODIUM, PORCINE 5000 UNITS/1 ML VIAL SQ SCH ×2 (08:22→21:10)
[2019-02-25] MEDS: HYDROGEL DRESSING 90 GM TUBE TP SCH (09:49)
[2019-02-25] MEDS: CHLORHEXIDINE GLUCONATE 15 ML UDC MM SCH ×2 (09:51→17:15)
[2019-02-25] MEDS ORDERED: LIDOCAINE 1%-EPI 1:100,000 20 ML VIAL TP ONE (13:00)
[2019-02-25 16:00] VITALS: BP 105/45
[2019-02-25] MEDS ORDERED: ENSURE ENLIVE CHOC 237 ML CAN PO SCH (17:00)
[2019-02-25] MEDS: MULTIVIT W/MINERALS 1 TAB TABLET PO SCH (17:15)
[2019-02-25] MEDS: ZINC SULFATE 220 MG CAPSULE PO SCH (17:15)
[2019-02-25] MEDS: ASCORBIC ACID 500 MG TABLET PO SCH (18:00)
[2019-02-25] MEDS: PROSOURCE / PROSTAT (PYXIS) 30 ML UDC PO SCH (18:00)
--- NOTE | 2019-02-25 18:57 | NUR ---
MS RN CLOSING NOTE PT SLEEPING IN BED, RESPIRATIONS EASY AND UNLABORED, NO SIGNS OF RESPIRATORY DISTRESS, 02 NC 2L/MIN. CEJA CATHETER DRAINED 750ML OF CLEAR YELLOW URINE THROUGHOUT SHIFT. LEFT HAND G22 INFUSING D5 1/2 NS AT 75ML/HR. COLLECTED STOOL SAMPLE FOR OCCULT TEST. LAB PICKED UP. PROVIDED SAFETY AND COMFORT THROUGHOUT SHIFT. PT PROGRESSED TO PUREE DIET, CALORIE COUNT FOR LUNCH 35% CALORIE COUNT FOR DINNER 5%. ISOLATION PRECAUTIONS MAINTAINED. BED IN LOW POSITION, LOCKED, CALL LIGHT WITHIN REACH. WILL ENDORSE TO NOC SHIFT NURSE.
[2019-02-25 19:47] LABS: OCCULT BLOOD STOOL NEGATIVE (NEGATIVE)
[2019-02-25 20:00] VITALS: BP_SYST 148; BP_SYST 161; BP_DIAS 64; BP_DIAS 69
[2019-02-25] MEDS: VANCOMYCIN 500 MG in IV D5W 100 ML IV SCH (20:19)
[2019-02-25] MEDS: ATORVASTATIN 10 MG TABLET PO SCH (21:08)
[2019-02-25] MEDS: CEFTRIAXONE 1 G in IV D5W 50 ML IV SCH (21:08)
[2019-02-26 04:00] VITALS: BP_SYST 122; BP_DIAS 85; BP_DIAS 88
--- NOTE | 2019-02-26 06:46 | NUR ---
RN NOTES, PATIENT IN BED, SLEEPING AT THIS TIME, BUT EASILY AROUSES TO VERBAL AND TACTILE STIMULI, BREATHING EVEN AND UNLABORED ON O2 AT 2LPM VIA NC, , NO SOB/ACUTE DISTRESS NOTED AT THIS TIME,STABLE WITH STABLE VITAL SIGNS DURING THE NIGHT, PATIENT DRY AND CLEAN AND WELL REPOSITIONED, CALL LIGHT W/I REACH, BED LOCKED AND IN LOW POSITION, WILL ENDORSE CONTINUITY OF CARE TO ONCOMING NURSE.
--- NOTE | 2019-02-26 07:33 | NUR ---
RN OPENING NOTES RECEIVED PATIENT SLEEPING IN BED, EASILY AROUSES TO VERBAL STIMULI. NONVERBAL. SHE IS ON 2L OF OXYGEN VIA NC, SHOWS NO S/SX OF RESP DISTRESS. SHE HAS A WILVER 22 G AND A L HAND 22 G. SHE IS ON A PUREED AND THICKENED LIQUID DIET. CEJA CATHETER IS INTACT AND PATENT. SAFETY MEASURES HAVE BEEN IMPLEMENTED, CALL LIGHT WITHIN REACH, BED IN LOWEST AND LOCKED POSITION, SIDE RAILS UP X2, WILL CONTINUE TO MONITOR FOR ANY CHANGES.
[2019-02-26 07:41] LABS: CALCIUM, SERUM 8.7 mg/dL (8.5-10.1); CARBON DIOXIDE 27 mmol/L (21-32); CHLORIDE 113 mmol/L (98-107); CREATININE 0.7 mg/dL (0.6-1.3); GLUCOSE 120 mg/dL (74-106); POTASSIUM 3.5 mmol/L (3.5-5.1); SODIUM SERUM 146 mmol/L (136-145); UREA NITROGEN, BLOOD 10 mg/dL (7-18)
[2019-02-26 07:48] LABS: BASOPHILS % (AUTO) 0.6 % (0.0-2.0); EOSINOPHILS % (AUTO) 0.4 % (0.0-6.0); HEMATOCRIT 26 % (33-45); HEMOGLOBIN 8.7 g/dL (11.5-14.8); LYMPHOCYTES # (AUTO) 2.1 /CMM (0.8-4.8); LYMPHOCYTES % (AUTO) 30.2 % (20.0-44.0); MEAN CORPUSCULAR HGB CONC 33 g/dl (31.0-36.0); MEAN CORPUSCULAR VOLUME 91 fL (82-100); MONOCYTES # (AUTO) 0.9 /CMM (0.1-1.30); MONOCYTES % (AUTO) 12.8 % (2.0-12.0); NEUTROPHILS # (AUTO) 3.8 /CMM (1.8-8.9); PLATELET COUNT (AUTO) 122 /CMM (150-450); RED BLOOD CELL COUNT(AUTO) 2.86 MIL/uL (4.0-5.2); WHITE BLOOD COUNT (AUTO) 6.8 K/uL (4.3-11.0)
[2019-02-26 08:00] VITALS: BP 148/75
[2019-02-26] MEDS: CHOLECALCIFEROL 1,000 UNIT TABLET (VIT D3) PO SCH (08:37)
[2019-02-26] MEDS: MEGESTROL ACETATE SUSP 400 MG/10 ML UDC PO SCH ×2 (08:37→16:34)
[2019-02-26] MEDS: NYSTATIN (PYXIS) 500,000 UNIT/5 ML ORAL.SUSP PO SCH ×3 (08:37→16:34)
[2019-02-26] MEDS: AMLODIPINE BESYLATE 10 MG TABLET PO SCH (08:38)
[2019-02-26] MEDS: CALCIUM CARBONATE (1250) 500 MG TABLET PO SCH ×2 (08:38→16:34)
[2019-02-26] MEDS: risperiDONE 0.25 MG TABLET PO SCH ×2 (08:41→16:33)
[2019-02-26] MEDS: CHLORHEXIDINE GLUCONATE 15 ML UDC MM SCH ×2 (08:42→16:34)
[2019-02-26] MEDS: LACTOBACILLUS RHAMNOSUS GG 1 EACH CAP.SPRINK PO SCH ×2 (08:42→16:33)
[2019-02-26] MEDS: CLOPIDOGREL BISULFATE 75 MG TABLET PO SCH (08:44)
[2019-02-26] MEDS: DOCUSATE SODIUM 100 MG CAPSULE PO SCH ×2 (08:44→16:34)
[2019-02-26] MEDS: PANTOPRAZOLE 40 MG VIAL IV SCH (08:53)
[2019-02-26] MEDS: ENSURE CLEAR 237 ML LIQUID (MIX BERRY) PO SCH ×2 (09:00→17:48)
[2019-02-26] MEDS: HYDROGEL DRESSING 90 GM TUBE TP SCH (09:00)
[2019-02-26] MEDS: HEPARIN SODIUM, PORCINE 5000 UNITS/1 ML VIAL SQ SCH ×2 (09:00→21:29)
--- NOTE | 2019-02-26 09:14 | NUR ---
HELD HEPARIN 5000 UNITS. PATIENT'S PLATELETS ARE TRENDING DOWN, PT ALSO ON PLAVIX, WILL NOTIFY
[2019-02-26] MEDS: IV D5/0.45 NACL 1,000 ML IV PRN ×2 (10:06→21:54)
[2019-02-26 16:00] VITALS: BP 134/82
[2019-02-26] MEDS: ZINC SULFATE 220 MG CAPSULE PO SCH ×3 (18:26→19:21)
[2019-02-26] MEDS: PROSOURCE / PROSTAT (PYXIS) 30 ML UDC PO SCH ×3 (18:26→19:21)
[2019-02-26] MEDS: MULTIVIT W/MINERALS 1 TAB TABLET PO SCH ×3 (18:26→19:21)
[2019-02-26] MEDS: ASCORBIC ACID 500 MG TABLET PO SCH ×3 (18:26→19:21)
--- NOTE | 2019-02-26 18:40 | NUR ---
RN NOTES UNABLE TO GIVE 1800 MEDICATION. PATIENT REFUSED TO TO OPEN HER MOUTH. I TRIED CRUSHING UP THE MEDS AND MIXING WITH APPLE SAUCE. I TRIED DILUTING WITH WATER AND USING A SYRINGE BUT NO SUCCESS.
--- NOTE | 2019-02-26 19:23 | NUR ---
RN CLOSING NOTES PATIENT IS RESTING IN BED COMFORTABLY, SHE IS NONVERBAL. PATIENT'S NEEDS FOR TODAY WERE MET. DRESSING CHANGES WERE DONE. PATIENT WAS REFUSING 1800 MEDICATIONS, UNABLE TO GIVE. SAFETY MEASURES HAVE BEEN IMPLEMENTED, CALL LIGHT WITHIN REACH, BED IN LOWEST AND LOCKED POSITION, CALL LIGHT WITHIN REACH, PATIENT HAS BEEN ENDORSED TO NIGHTSHIFT NURSE.
--- NOTE | 2019-02-26 19:40 | NUR ---
MS RN NOTES, PATIENT IN BED, SLEEPING AT THIS TIME, AROUSES TO VERBAL OR TACTILE STIMULI, NONVERBAL, BREATHING EVEN AND UNLABORED, O2 AT 2L O2 NASAL CANULA, NO S/S OF SOB/ACUTE DISTRESS NOTED AT THIS TIME, IV ACCESS LEFT HAND AND WILVER PATENT AND INTACT, WITH D51/2 NS INFUSING WELL AND PATIENT TOLERATED WELL, ASPIRATION PRECAUTIONS IN PLACED, HOB ELEVATED AT ALL TIMES, LOCKED AND LOW POSITION, CEJA CATHETER IN PLACED WITH YELLOW URINE DRAINING TO GRAVITY, WILL CONTINUE TO MONITOR CLOSELY.
[2019-02-26 20:00] VITALS: BP 135/64
[2019-02-26] MEDS: CEFTRIAXONE 1 G in IV D5W 50 ML IV SCH (21:29)
[2019-02-26] MEDS: ATORVASTATIN 10 MG TABLET PO SCH (21:30)
[2019-02-27 04:00] VITALS: BP 127/78
--- NOTE | 2019-02-27 06:30 | NUR ---
RN NOTES, PATIENT IN BED, SLEEPING AT THIS TIME, BUT EASILY AROUSES TO VERBAL AND TACTILE STIMULI, ON O2 AT 2LPM VIA NC, BREATHING EVEN AND UNLABORED , NO SOB/RESPIRATORY DISTRESS NOTED AT THIS TIME,NO SIGNIFICANT CHANGE IN CONDITION DURING THE NIGHT, PATIENT DRY AND CLEAN AND WELL REPOSITIONED, CALL LIGHT W/I REACH, BED LOCKED AND IN LOW POSITION, WILL ENDORSE CONTINUITY OF CARE TO ONCOMING NURSE.
[2019-02-27 07:19] LABS: BASOPHILS % (AUTO) 0.3 % (0.0-2.0); EOSINOPHILS % (AUTO) 0.3 % (0.0-6.0); HEMATOCRIT 26 % (33-45); HEMOGLOBIN 8.9 g/dL (11.5-14.8); LYMPHOCYTES # (AUTO) 2.4 /CMM (0.8-4.8); LYMPHOCYTES % (AUTO) 29.8 % (20.0-44.0); MEAN CORPUSCULAR HGB CONC 34 g/dl (31.0-36.0); MEAN CORPUSCULAR VOLUME 91 fL (82-100); MONOCYTES # (AUTO) 0.9 /CMM (0.1-1.30); MONOCYTES % (AUTO) 10.7 % (2.0-12.0); NEUTROPHILS # (AUTO) 4.7 /CMM (1.8-8.9); NEUTROPHILS % (AUTO) 58.9 % (43.0-81.0); PLATELET COUNT (AUTO) 148 /CMM (150-450); RED BLOOD CELL COUNT(AUTO) 2.87 MIL/uL (4.0-5.2); WHITE BLOOD COUNT (AUTO) 8.1 K/uL (4.3-11.0)
--- NOTE | 2019-02-27 07:34 | NUR ---
MS RN OPENING NOTES, PATIENT RECEIVED IN BED AWAKE, A/O X 2, NO SOB OR ACUTE DISTRESS NOTED. BREATHING EVEN AND UNLABORED, 2L O2 VIA NASAL CANNULA. L HAND IV ACCESS PATENT AND INTACT WITH D51/2 NS INFUSING WELL. ASPIRATION PRECAUTIONS IN PLACED, HOB ELEVATED AT ALL TIMES, BED IN LOCKED AND LOW POSITION, CEJA CATHETER IN PLACED WITH YELLOW URINE DRAINING TO GRAVITY, WILL CONTINUE TO MONITOR CLOSELY.
[2019-02-27 07:44] LABS: CALCIUM, SERUM 8.6 mg/dL (8.5-10.1); CARBON DIOXIDE 25 mmol/L (21-32); CHLORIDE 110 mmol/L (98-107); CREATININE 0.7 mg/dL (0.6-1.3); GLUCOSE 99 mg/dL (74-106); SODIUM SERUM 141 mmol/L (136-145); UREA NITROGEN, BLOOD 9 mg/dL (7-18)
[2019-02-27 08:00] VITALS: BP 157/54
[2019-02-27] MEDS: ENSURE CLEAR 237 ML LIQUID (MIX BERRY) PO SCH ×2 (08:31→16:40)
[2019-02-27] MEDS: VANCOMYCIN 500 MG in IV D5W 100 ML IV SCH (08:31)
[2019-02-27] MEDS: POTASSIUM CL. PREMIX PERIPHER. 50 ML IV SCH ×6 (08:51→15:58)
[2019-02-27] MEDS: CHOLECALCIFEROL 1,000 UNIT TABLET (VIT D3) PO SCH (09:21)
[2019-02-27] MEDS: CLOPIDOGREL BISULFATE 75 MG TABLET PO SCH (09:21)
[2019-02-27] MEDS: MEGESTROL ACETATE SUSP 400 MG/10 ML UDC PO SCH ×2 (09:21→16:38)
[2019-02-27] MEDS: CALCIUM CARBONATE (1250) 500 MG TABLET PO SCH ×2 (09:21→16:37)
[2019-02-27] MEDS: NYSTATIN (PYXIS) 500,000 UNIT/5 ML ORAL.SUSP PO SCH ×3 (09:21→16:37)
[2019-02-27] MEDS: CHLORHEXIDINE GLUCONATE 15 ML UDC MM SCH ×2 (09:21→16:38)
[2019-02-27] MEDS: LACTOBACILLUS RHAMNOSUS GG 1 EACH CAP.SPRINK PO SCH ×2 (09:21→16:38)
[2019-02-27] MEDS: risperiDONE 0.25 MG TABLET PO SCH ×2 (09:21→16:38)
[2019-02-27] MEDS: DOCUSATE SODIUM 100 MG CAPSULE PO SCH ×2 (09:22→16:37)
[2019-02-27] MEDS: AMLODIPINE BESYLATE 10 MG TABLET PO SCH (09:22)
[2019-02-27] MEDS: PANTOPRAZOLE 40 MG VIAL IV SCH (09:28)
[2019-02-27] MEDS: HEPARIN SODIUM, PORCINE 5000 UNITS/1 ML VIAL SQ SCH ×2 (09:28→21:00)
[2019-02-27] MEDS: HYDROGEL DRESSING 90 GM TUBE TP SCH (09:29)
[2019-02-27 16:00] VITALS: BP 141/72
[2019-02-27] MEDS ORDERED: POTASSIUM CL. PREMIX PERIPHER. 50 ML IV SCH (16:30)
[2019-02-27] MEDS: ACETAMINOPHEN 325 MG TABLET PO PRN (16:38)
--- NOTE | 2019-02-27 19:05 | NUR ---
MS RN OPENING NOTES PATIENT IN BED AWAKE, NONVERBAL, MOANING. ON OXYGEN 2L VIA NC, TOLERATING WELL, NO SOB OR ACUTE DISTRESS NOTED. BREATHING EVEN AND UNLABORED. IV SITES WILVER 22G AND R HAND 22G BOTH PATENT AND INTACT, S/L. ASPIRATION PRECAUTIONS IN PLACE, HOB ELEVATED AT ALL TIMES. SAFETY MEASURES IN PLACE; BED IN LOCKED AND LOW POSITION, CEJA CATHETER IN PLACE WITH YELLOW URINE DRAINING TO GRAVITY, SIDE RAILS UP X2 AND PADDED, CALL LIGHT WITHIN REACH. WILL CONT TO MONITOR PT.
--- NOTE | 2019-02-27 19:45 | NUR ---
MS RN NOTES RECEIVED PHONE CALL FROM KIRIT GRANGER NP. ORDERED TO DISCONTINUE VANCOMYCIN AND CEFTRIAXONE. WILL ATTEND TO ORDERS.
[2019-02-27 20:00] VITALS: BP 106/62
--- NOTE | 2019-02-27 20:02 | NUR ---
MS RN CLOSING NOTE PATIENT IN BED AWAKE, A/O X 1-2, NO SOB OR ACUTE DISTRESS NOTED. BREATHING EVEN AND UNLABORED, 2L O2 VIA NASAL CANNULA. L HAND IV ACCESS PATENT AND INTACT. ASPIRATION PRECAUTIONS IN PLACED, HOB ELEVATED AT ALL TIMES. MD BEDSIDE TODAY. NO NEW MEDICATION ORDERS PLACED. NO SIGNIFICANT CHANGES IN PATIENT CONDITION THROUGHOUT SHIFT. ALL MEDICATIONS GIVEN. WOUND CARE COMPLETED. BED IN LOCKED AND LOW POSITION, CEJA CATHETER IN PLACED WITH YELLOW URINE DRAINING TO GRAVITY, SAFETY MEASURES IN PLACE. CARE ENDORSED TO MOVIE PRODUCER RN.
[2019-02-27] MEDS: ATORVASTATIN 10 MG TABLET PO SCH (21:01)
[2019-02-27] MEDS: Z GUARD REMEDY 2 OZ OINT TP PRN (23:30)
[2019-02-28] MEDS: ACETAMINOPHEN 325 MG TABLET PO PRN ×3 (03:08→17:19)
[2019-02-28 04:00] VITALS: BP 138/60
--- NOTE | 2019-02-28 06:33 | NUR ---
MS RN CLOSING NOTES PATIENT IN BED SLEEPING, BUT EASY TO AROUSE. MOANS OCCASIONALLY. NO ACUTE CHANGES THROUGHOUT SHIFT. ON OXYGEN 2L VIA NC, TOLERATING WELL, NO SOB OR ACUTE DISTRESS NOTED. BREATHING EVEN AND UNLABORED. IV SITES WILVER 22G AND R HAND 22G BOTH PATENT AND INTACT, S/L. ASPIRATION PRECAUTIONS IN PLACE, HOB ELEVATED AT ALL TIMES. SAFETY MEASURES IN PLACE; BED IN LOCKED AND LOW POSITION, CEJA CATHETER IN PLACE WITH YELLOW URINE DRAINING TO GRAVITY, SIDE RAILS UP X2 AND PADDED, CALL LIGHT WITHIN REACH. WILL ENDORSE TO AM RN FOR NAY.
[2019-02-28 06:58] LABS: BASOPHILS % (AUTO) 0.6 % (0.0-2.0); EOSINOPHILS % (AUTO) 0.4 % (0.0-6.0); HEMATOCRIT 23 % (33-45); HEMOGLOBIN 7.7 g/dL (11.5-14.8); LYMPHOCYTES # (AUTO) 2.4 /CMM (0.8-4.8); LYMPHOCYTES % (AUTO) 33.3 % (20.0-44.0); MEAN CORPUSCULAR HGB CONC 34 g/dl (31.0-36.0); MEAN CORPUSCULAR VOLUME 91 fL (82-100); MONOCYTES # (AUTO) 0.5 /CMM (0.1-1.30); MONOCYTES % (AUTO) 7.6 % (2.0-12.0); NEUTROPHILS # (AUTO) 4.1 /CMM (1.8-8.9); NEUTROPHILS % (AUTO) 58.1 % (43.0-81.0); PLATELET COUNT (AUTO) 157 /CMM (150-450); RED BLOOD CELL COUNT(AUTO) 2.48 MIL/uL (4.0-5.2); WHITE BLOOD COUNT (AUTO) 7.1 K/uL (4.3-11.0)
[2019-02-28 07:12] LABS: ALANINE AMINOTRANSFERASE 17 U/L (12-78); ALKALINE PHOSPHATASE 91 U/L (46-116); ASPARTATE AMINOTRANSFERASE 22 U/L (15-37); BILIRUBIN,TOTAL 0.4 mg/dL (0.2-1.0); CALCIUM, SERUM 8.8 mg/dL (8.5-10.1); CARBON DIOXIDE 24 mmol/L (21-32); CHLORIDE 112 mmol/L (98-107); CREATININE 0.7 mg/dL (0.6-1.3); GLUCOSE 87 mg/dL (74-106); MAGNESIUM 1.6 mg/dL (1.8-2.4); POTASSIUM 4.7 mmol/L (3.5-5.1); SODIUM SERUM 143 mmol/L (136-145); TOTAL PROTEIN, SERUM 5.1 g/dL (6.4-8.2); UREA NITROGEN, BLOOD 11 mg/dL (7-18)
[2019-02-28 07:16] LABS: ALBUMIN 1.2 g/dL (3.4-5.0)
--- NOTE | 2019-02-28 07:16 | NUR ---
MS RN NOTES PATIENT ALBUMIN 1.2, RELIED CRITICAL LAB TO AM RNELLE.
--- NOTE | 2019-02-28 07:24 | NUR ---
MS RN OPENING NOTE RECEIVED PATIENT IN BED AWAKE, A/O X 1-2, NO SOB OR ACUTE DISTRESS NOTED. BREATHING EVEN AND UNLABORED, 2L O2 VIA NASAL CANNULA. WILVER IV ACCESS PATENT AND INTACT. R HAND #22 IV SL INTACT AND PATENT. NS 0.9% TKO RUNNING AT 5ML/HR. ASPIRATION PRECAUTIONS IN PLACED, HOB ELEVATED AT ALL TIMES. NO SIGNIFICANT CHANGES IN PATIENT CONDITION REPORTED THROUGHOUT EMERGENCY MEDICAL TECHNICIAN/DRIVER. BED IN LOCKED AND LOW POSITION, CEJA CATHETER IN PLACED WITH YELLOW URINE DRAINING TO GRAVITY, SAFETY MEASURES IN PLACE. CARE ENDORSED TO EMERGENCY MEDICAL TECHNICIAN/DRIVER RN. Addendum: 02/28/19 at 0738 by GAGAN SAXENA RN CARE ENDORSED FROM EMERGENCY MEDICAL TECHNICIAN/DRIVER RN. WILL CONTINUE TO MONITOR. Addendum: 02/28/19 at 1027 by DANIEL MONTANEZ RN DISREGARD. OPENING NOTE PLACED UNDER WRONG RN. WILL REPLACE NOTE UNDER DANIEL MONTANEZ.
[2019-02-28 08:00] VITALS: BP 112/53
[2019-02-28] MEDS: CALCIUM CARBONATE (1250) 500 MG TABLET PO SCH ×2 (08:47→16:57)
[2019-02-28] MEDS: NYSTATIN (PYXIS) 500,000 UNIT/5 ML ORAL.SUSP PO SCH ×3 (08:47→17:12)
[2019-02-28] MEDS: CLOPIDOGREL BISULFATE 75 MG TABLET PO SCH (08:47)
[2019-02-28] MEDS: CHLORHEXIDINE GLUCONATE 15 ML UDC MM SCH ×2 (08:47→17:12)
[2019-02-28] MEDS: MEGESTROL ACETATE SUSP 400 MG/10 ML UDC PO SCH ×2 (08:47→17:12)
[2019-02-28] MEDS: DOCUSATE SODIUM 100 MG CAPSULE PO SCH ×2 (08:47→16:57)
[2019-02-28] MEDS: LACTOBACILLUS RHAMNOSUS GG 1 EACH CAP.SPRINK PO SCH ×3 (08:47→17:12)
[2019-02-28] MEDS: CHOLECALCIFEROL 1,000 UNIT TABLET (VIT D3) PO SCH (08:47)
[2019-02-28] MEDS: risperiDONE 0.25 MG TABLET PO SCH ×2 (08:48→17:11)
[2019-02-28] MEDS ORDERED: AMLODIPINE BESYLATE 10 MG TABLET PO SCH (09:00)
[2019-02-28] MEDS: ENSURE CLEAR 237 ML LIQUID (MIX BERRY) PO SCH ×2 (09:17→17:13)
[2019-02-28] MEDS: PANTOPRAZOLE 40 MG VIAL IV SCH (09:18)
[2019-02-28] MEDS: HYDROGEL DRESSING 90 GM TUBE TP SCH (09:19)
--- NOTE | 2019-02-28 10:28 | NUR ---
MS RN OPENING NOTE RECEIVED PATIENT IN BED AWAKE, A/O X 1-2, NO SOB OR ACUTE DISTRESS NOTED. BREATHING EVEN AND UNLABORED, 2L O2 VIA NASAL CANNULA. WILVER IV ACCESS PATENT AND INTACT. R HAND #22 IV SL INTACT AND PATENT. NS 0.9% TKO RUNNING AT 5ML/HR. ASPIRATION PRECAUTIONS IN PLACED, HOB ELEVATED AT ALL TIMES. NO SIGNIFICANT CHANGES IN PATIENT CONDITION REPORTED THROUGHOUT SPEECH LANG PATH. BED IN LOCKED AND LOW POSITION, CEJA CATHETER IN PLACED WITH YELLOW URINE DRAINING TO GRAVITY, SAFETY MEASURES IN PLACE. CARE ENDORSED TO SPEECH LANG PATH RN. Addendum: 02/28/19 at 1036 by DANIEL MONTANEZ RN DISREGARD "CARE ENDORSED TO SPEECH LANG PATH RN". AM CARE ENDORSED TO DANIEL MONTANEZ. WILL CONTINUE TO MONITOR.
[2019-02-28] MEDS ORDERED: NEUTRA PHOS 1 POWD.PACKET PO ONE (12:00)
[2019-02-28] MEDS ORDERED: NYST5ORA PO (12:58)
[2019-02-28] MEDS ORDERED: LACT1CAP72 PO (12:58)
[2019-02-28] MEDS ORDERED: LIDOCAINE 1%-EPI 1:100,000 20 ML VIAL TP STA (14:27)
[2019-02-28 16:00] VITALS: BP 129/65
--- NOTE | 2019-02-28 17:00 | NUR ---
MS RN NOTE WOUND CARE COMPLETED WITH WOUND CARE PROGRAM ADVISOR ORDERED.
[2019-02-28] MEDS: PROSOURCE / PROSTAT (PYXIS) 30 ML UDC PO SCH (17:13)
[2019-02-28] MEDS: ASCORBIC ACID 500 MG TABLET PO SCH (17:18)
[2019-02-28] MEDS: ZINC SULFATE 220 MG CAPSULE PO SCH (17:18)
[2019-02-28] MEDS: MULTIVIT W/MINERALS 1 TAB TABLET PO SCH (17:19)
--- NOTE | 2019-02-28 19:08 | NUR ---
MS MANAGER PERIOPERATIVE NOTE PATIENT DISCHARGED PER MD VIA EMT [facility]. PATIENT GOING TO [facility]. PATIENT A/O X 1-2, NO SOB OR ACUTE DISTRESS NOTED. BREATHING EVEN AND UNLABORED, ON 2L O2 VIA NASAL CANNULA. WILVER IV AND R HAND #22 IV REMOVED. WOUND CARE COMPLETED, PATIENT CLEAN AND DRY. ALL DISCHARGE PAPERWORK WITH MEDICATION LIST SENT WITH EMT'S. NO SIGNIFICANT CHANGES IN PATIENT CONDITION DURING SHIFT. CEJA CATHETER IN PLACE AND DRAINED PRIOR TO TRANSPORT. REPORT GIVEN TO MIR GONZALEZ AT [facility]ATION [facility]ILITY. DISCHARGE COMPLETED WITHOUT INCIDENT.
== END 2019-02-28 21:00 | DRG 853 ==
LOC: ER 13:36 → TELE-TD 14:18 → TELE1 02-23 08:35 → MEDSG1 02-24 09:15
PROVIDERS: ADMIT Nurse Practitioner Acute Care; ATTEND Nurse Practitioner Acute Care
PROC: 0KBP0ZZ Excision of Left Hip Muscle, Open Approach (ICD-10-PCS; principal; 2019-02-21)
PROC: 0KBN0ZZ Excision of Right Hip Muscle, Open Approach (ICD-10-PCS; 2019-02-21)
PROC: 0JB90ZZ Excision of Buttock Subcutaneous Tissue and Fascia, Open Approach (ICD-10-PCS; 2019-02-21)
PROC: 0KBP0ZZ Excision of Left Hip Muscle, Open Approach (ICD-10-PCS; 2019-02-25)
PROC: 0KBN0ZZ Excision of Right Hip Muscle, Open Approach (ICD-10-PCS; 2019-02-25)
DX: A41.9 Sepsis, unspecified organism (principal); L89.323 Pressure ulcer of left buttock, stage 3; L89.154 Pressure ulcer of sacral region, stage 4; N17.0 Acute kidney failure with tubular necrosis; G93.41 Metabolic encephalopathy; E43 Unspecified severe protein-calorie malnutrition; J69.0 Pneumonitis due to inhalation of food and vomit; J96.01 Acute respiratory failure with hypoxia; B37.0 Candidal stomatitis; E87.2 Acidosis; N39.0 Urinary tract infection, site not specified; E87.0 Hyperosmolality and hypernatremia; I69.359 Hemiplegia and hemiparesis following cerebral infarction affecting unspecified side; J90 Pleural effusion, not elsewhere classified; J98.11 Atelectasis; I12.9 Hypertensive chronic kidney disease with stage 1 through stage 4 chronic kidney disease, or unspecified chronic kidney disease; N18.9 Chronic kidney disease, unspecified; E78.5 Hyperlipidemia, unspecified; E86.0 Dehydration; E86.1 Hypovolemia; G40.909 Epilepsy, unspecified, not intractable, without status epilepticus; I25.10 Atherosclerotic heart disease of native coronary artery without angina pectoris; F20.9 Schizophrenia, unspecified; F41.9 Anxiety disorder, unspecified; Z88.0 Allergy status to penicillin; Z88.2 Allergy status to sulfonamides; R65.20 Severe sepsis without septic shock; E87.6 Hypokalemia; D69.6 Thrombocytopenia, unspecified; I73.9 Peripheral vascular disease, unspecified; Z87.440 Personal history of urinary (tract) infections; D63.8 Anemia in other chronic diseases classified elsewhere; Z66 Do not resuscitate; B96.20 Unspecified Escherichia coli [E. coli] as the cause of diseases classified elsewhere; Z16.12 Extended spectrum beta lactamase (ESBL) resistance; B96.5 Pseudomonas (aeruginosa) (mallei) (pseudomallei) as the cause of diseases classified elsewhere; Z74.01 Bed confinement status; S40.022A Contusion of left upper arm, initial encounter; S40.021A Contusion of right upper arm, initial encounter; X58.XXXA Exposure to other specified factors, initial encounter; Y93.9 Activity, unspecified; Y92.129 Unspecified place in nursing home as the place of occurrence of the external cause; L89.520 Pressure ulcer of left ankle, unstageable; L89.510 Pressure ulcer of right ankle, unstageable; B96.4 Proteus (mirabilis) (morganii) as the cause of diseases classified elsewhere; B95.2 Enterococcus as the cause of diseases classified elsewhere; F09 Unspecified mental disorder due to known physiological condition; Z86.61 Personal history of infections of the central nervous system; F03.90 Unspecified dementia, unspecified severity, without behavioral disturbance, psychotic disturbance, mood disturbance, and anxiety
CPT/HCPCS: 36415; 36600; 71045-TC; 80048-TC; 80053-TC; 80061-TC; 80076-TC; 80202-TC; 81000-TC; 82272-TC; 82803-TC; 82962-TC; 83605-TC; 83735-TC; 84100-TC; 84443-TC; 84484-TC; 85025-TC; 85730-TC; 87040-TC; 87070-TC; 87081-TC; 87086-TC; 87186-TC; 92526; 92611-TC; 97112-TC; 97530-TC; A4216; A4217; A6248; A6253; C9113; G0378; J0692; J0696; J1644; J1956; J2185; J3370; J3480; J3490; J7030; J7050; J7060